=== PATIENT | female | born 1970 | race Caucasian/White ===

== ENCOUNTER → 2017-02-20 | Outpatient (CLI) | payer OTHER, SELFPAY | PROVIDERS: Visit Provider Nurse Practitioner Family | DX: R53.83 Other fatigue (principal); E55.9 Vitamin D deficiency, unspecified; Z79.899 Other long term (current) drug therapy | CPT/HCPCS: 80053; 80061; 82306; 83036; 84439; 84443; 85025 ==

== ENCOUNTER → 2017-05-12 02:00 | Outpatient (CLI) | payer OTHER, SELFPAY | PROVIDERS: PCP Nurse Practitioner Family; Visit Provider Nurse Practitioner Family | DX: G47.33 Obstructive sleep apnea (adult) (pediatric) (principal) | CPT/HCPCS: 95806 ==

== ENCOUNTER → 2017-07-22 09:43 | Outpatient (REF) | payer OTHER, SELFPAY ==
[2017-07-22 18:11] LABS: Basophils % 0.4 % (0.1-2.0); Eosinophils # 0.4 K/mm3 (0.0-0.4); Eosinophils % 4.3 % (0.1-12.0); Hematocrit 47.3 % (37.0-47.0); Hemoglobin 14.1 g/dL (12.2-16.2); Lymphocytes # 2.4 K/mm3 (0.7-4.5); Lymphocytes % 27.3 K/mm3 (10-50); Mean Corpuscular HGB Conc 29.7 g/dL (31.8-35.4); Mean Corpuscular Hemoglobin 28.1 pg (27.0-31.2); Mean Corpuscular Volume 94.6 fl (81-99); Monocytes # 0.4 K/mm3 (0.1-1.0); Monocytes % 4.3 % (1.7-9.3); Neutrophils # 5.7 K/mm3 (1.8-7.8); Neutrophils % 63.7 % (37.0-80.0); Platelet Count 404 K/mm3 (142-424); Red Cell Distribution Width 12.8 % (11.5-17.5); White Blood Count 8.9 K/mm3 (4.8-10.8)
[2017-07-22 18:44] LABS: Alanine Aminotransferase 22 U/L (12-78); Albumin Level 4.1 gm/dL (3.4-5.0); Albumin/Globulin Ratio 1.2 (1.1-1.8); Alkaline Phosphatase 99 U/L (46-116); Anion Gap 13.5 mEq/L (5-15); Aspartate Amino Transferase 18 U/L (15-37); Bilirubin,Total 0.4 mg/dL (0.2-1.0); Blood Urea Nitrogen 15 mg/dL (7-18); Calcium 9.8 mg/dL (8.5-10.1); Carbon Dioxide 28 mmol/L (21.0-32.0); Chloride 101 mmol/L (98-107); Chol/HDL Ratio 3.4 (1-3.5); Cholesterol 185 mg/dL (140-200); Creatinine,Serum 0.68 mg/dL (0.55-1.02); Estimated Glomerular Filt Rate 93 ml/min (>60); Free T4 (Free Thyroxine) 0.82 ng/dl (0.76-1.46); GFR (African American) 112 ML/MIN (>60); Globulin 3.4 gm/dl (1.3-3.2); Glucose 86 mg/dL (74-106); HDL Cholesterol 54 mg/dL (29-89); LDL Cholesterol 110 mg/dL (0-130); Potassium 4.5 mmoL/L (3.5-5.1); Sodium 138 mmol/L (136-145); Thyroid Stimulating Hormone 4.19 uIU/ml (0.358-3.740); Total Protein,Serum 7.5 gm/dL (6.4-8.2); Triglycerides 107 mg/dL (30-200); VLDL Cholesterol 21 mg/dL (0-40)
[2017-07-22 18:56] LABS: Hemoglobin A1C 5.3 % (0.0-7.0)
[2017-07-24 21:14] LABS: Vitamin D 25 Hydroxy 29.5 ng/mL (30.0-100.0)
== END ==
LOC: LAB 09:43
PROVIDERS: Visit Provider Nurse Practitioner Family
DX: R53.83 Other fatigue (principal); E66.9 Obesity, unspecified
CPT/HCPCS: 80053; 80061; 82652; 83036; 84439; 84443; 85025

== ENCOUNTER → 2017-09-18 09:12 | Outpatient (REF) | payer OTHER, SELFPAY ==
[2017-09-18 20:42] LABS: Free T4 (Free Thyroxine) 0.74 ng/dl (0.76-1.46); Thyroid Stimulating Hormone 2.38 uIU/ml (0.358-3.740)
== END ==
LOC: LAB 09:12
PROVIDERS: Visit Provider Nurse Practitioner Family
DX: E07.9 Disorder of thyroid, unspecified (principal)
CPT/HCPCS: 84439; 84443

== ENCOUNTER → 2017-12-08 11:53 | Outpatient (CLI) | payer OTHER, SELFPAY ==
[2017-12-08 19:26] LABS: Blood Urea Nitrogen 12 mg/dL (7-18); Calcium 8.8 mg/dL (8.5-10.1); Carbon Dioxide 26 mmol/L (21.0-32.0); Chloride 100 mmol/L (98-107); Creatinine,Serum 0.78 mg/dL (0.55-1.02); Estimated Glomerular Filt Rate 79 ml/min (>60); GFR (African American) 96 ML/MIN (>60); Glucose 130 mg/dL (74-106); Sodium 137 mmol/L (136-145)
== END ==
PROVIDERS: PCP Emergency Medicine; Visit Provider Internal Medicine Cardiovascular Disease
DX: I10 Essential (primary) hypertension (principal)
CPT/HCPCS: 36415; 80048; 83880

== ENCOUNTER → 2017-12-10 06:09 | Outpatient (CLI) | payer OTHER, SELFPAY ==
--- NOTE | 2017-12-10 06:12 | NM_ITS ---
History and Indications: Hypertension, tobacco use, family history, shortness of breath and fatigue Procedure: Patient received a 0.4 mg of Lexiscan, resting heart rate was 67 bpm resting blood pressure 120/88, with Lexiscan maximum heart rate achieved was 112 bpm is less than 85% maximum predicted heart rate and a blood pressure of 125/70. With Lexiscan patient complained of shortness of breath. Electrocardiogram: Resting electrocardiogram showed sinus rhythm, with Lexiscan there is less than 1.[address] segment depression noted from the baseline EKG. The EKG portion of the Lexiscan Myoview is nondiagnostic. Cardiac stress and resting SPECT images: Cardiac stress and resting SPECT images were obtained using technetium 99 Myoview 30.3 mCi at stress and 9.5 mCi at rest. Gated SPECT further analysis of segmental wall motion and calculation of the ejection fraction also done. Cardiac stress and rest SPECT images show uniform myocardial activity without segmental perfusion abnormality, computer derived ejection fraction is over 65% with no segmental wall motion abnormality, right ventricle is normal size and contractility. Conclusion: 1. The EKG portion of the Lexiscan Myoview is nondiagnostic. 2. No scintigraphic evidence of reversible ischemia seen, computer derived ejection fraction is over 65% with no regional wall motion abnormality, right ventricle is normal size and contractility. 3. Normal Lexiscan Myoview study.
--- NOTE | 2017-12-10 06:12 | CA_ITS ---
PROCEDURE: 2-D M-mode and color Doppler study INDICATIONS FOR THE TEST: Chest pain COPD Heart Murmur Tobacco Smoking+ Palpitations Fatigue Syncope Edema+ Hypertension+Diabetes Mellitus Rheumatic Fever SOB LARSON+Obesity Hyperlipidemia Family History HD+ Additional History PATIENT INFORMATION HEIGHT: 61 WEIGHT:250 GENDER: Female B/P:130/89 2-D/M-MODE INTERPRETATION: 2-D MEASUREMENTS OBSERVED VALUES IN CMS Right Ventricular Dimension (RVDd) 2.3 Interventricular Septum (Thickness)(IVsd) 1.0 Left Ventricular Internal Dimensions(LVIDd) 4.3 Left Ventricular Posterior Wall (Thickness)(LVPWd) 0.8 Aortic Root 2.5 Aortic Cusp Separation 1.7 Left Atrial Dimensions (LAD) 3.9 2D 1. Left atrium is upper limit of the normal, left ventricle is normal size, there is no concentric left ventricular hypertrophy, visually estimated ejection fraction 55% with no regional wall motion abnormality. 2. The right atrium and the ventricular normal size and contractility. 3. The aortic, mitral and tricuspid valve are grossly normal. 4. The pulmonic valve is poorly visualized. 5. No significant pericardial effusion noted. DOPPLER INTERROGATION: Doppler interrogation of the aortic, mitral and tricuspid valvular presence of mild mitral and tricuspid regurgitation, tricuspid regurgitation jet velocity is inadequate for calculation of the right ventricular systolic pressure, diastolic parameters are within normal range. CONCLUSION: 1. Normal left ventricular size, preserved left ventricular systolic function, visually estimated ejection fraction 55% with no regional wall motion abnormality, diastolic parameters are within normal range. 2. Mild mitral and tricuspid regurgitation 3. No significant pericardial effusion noted.
--- NOTE | 2017-12-10 10:07 | HMH.ITSHM ---
LISONPRIL PANTOPRAZOLE LORATATDINE LEVOTHYROXINE SPIRONOLACTONE FLUTICASONE
== END ==
PROVIDERS: Family Provider Emergency Medicine; PCP Emergency Medicine; Visit Provider Internal Medicine Cardiovascular Disease
DX: I10 Essential (primary) hypertension (principal); E03.9 Hypothyroidism, unspecified; K21.9 Gastro-esophageal reflux disease without esophagitis; R60.9 Edema, unspecified; R06.09 Other forms of dyspnea; F17.200 Nicotine dependence, unspecified, uncomplicated; Z82.49 Family history of ischemic heart disease and other diseases of the circulatory system
CPT/HCPCS: 78452; 93017; 93306; A9502; J2785

== ENCOUNTER → 2017-12-16 20:08 | Outpatient (CLI) | payer OTHER, SELFPAY | PROVIDERS: PCP Emergency Medicine; Visit Provider Internal Medicine Cardiovascular Disease | DX: G47.33 Obstructive sleep apnea (adult) (pediatric) (principal); G47.9 Sleep disorder, unspecified; R06.83 Snoring; R40.0 Somnolence | CPT/HCPCS: 95810 ==

== ENCOUNTER → 2018-02-17 13:04 | Outpatient (CLI) | payer OTHER, SELFPAY ==
--- NOTE | 2018-02-17 13:07 | US_ITS ---
US soft tissue head and neck Ordering Physician: Kristie Christensen Patient Age: 47 years: Female HISTORY: ITS.REASON: nodule right side of neck Patient reports feels palpable area at the right lower neck. Has been there for 2 months. TECHNIQUE: Ultrasound survey of the neck performed. Including bilateral salivary gland COMPARISON :No relevant studies FINDINGS . Scanning the palpable area does reveal a few lymph nodes in this area. With the largest node measures up to nearly 1 cm length x 0.6 cm AP. It has a normal fatty hilum. The cortex measures nearly 2 mm thickness.. This is labeled node # 1. Lymph node # 2..Measures up to 7 mm length times nearly 5 mm AP. On the final image there seems to be adequate fatty hilum. Cortex is slightly thicker here still normal at less than 2 mm.. Salivary glands are also surveyed and measured. & appear normal bilaterally: RIGHT submandibular gland measures 3.9 cm in length X 1.7 cm homogeneous. Similar size LEFT submandibular gland, measures 3.2 cm in length as 1.5 cm AP. The parotid glands also surveyed and reflect symmetric with no mass/nodule evident. Left parotid measures up to 4.7 cm length. Right parotid 4.4 cm length seem in length.. IMPRESSION: 1. Scanning region of palpable area right neck reveals 2 lymph nodes... Largest measuring nearly 1 cm length & other 0.7 cm length. These both overall appear to be benign lymph nodes.. If the palpable area should persist or progress follow-up CT neck with contrast be warranted. (Especially the patient has risk factors for neck lesion or neoplasm.) 2. Survey of parotid salivary glands unremarkable. WNL .
== END ==
PROVIDERS: PCP Emergency Medicine; Visit Provider Nurse Practitioner Family
DX: R59.9 Enlarged lymph nodes, unspecified (principal)
CPT/HCPCS: 76536

== ENCOUNTER → 2018-03-10 14:46 | Outpatient (CLI) | payer OTHER, SELFPAY ==
--- NOTE | 2018-03-10 14:49 | XR_ITS ---
EXAM: XR lumbar spine min 4V HISTORY: ITS.REASON: pain ORDERING PHYSICIAN: Kristie Christensen PATIENT AGE: 47 years COMPARISON: None FINDINGS: There has been prior posterior fusion at L4-L5 with interpedicular screws present in a disc spacer. There is mild anterolisthesis of L4 on L5 of 4 mm. No fracture or dislocation. No lytic or blastic change. The disc spaces are well-preserved. Unremarkable as joints. IMPRESSION: Postsurgical changes at L4-5 with minimal anterolisthesis of L4 otherwise negative lumbar spine
== END ==
PROVIDERS: PCP Nurse Practitioner Family; Visit Provider Nurse Practitioner Family
DX: M54.5 Low back pain (principal)
CPT/HCPCS: 72110

== ENCOUNTER → 2018-03-24 10:40 | Outpatient (POV) | payer OTHER, SELFPAY ==
[2018-03-24 10:51] VITALS: BP 128/71; PULSE 68; RESP 18; O2SAT 99
--- NOTE | 2018-03-24 11:38 | HMH.PMCON ---
Assessment and Plan (1) Degenerative disc disease Current visit: Yes Status: Chronic Category: Medical (2) Post laminectomy syndrome Current visit: Yes Status: Chronic Category: Medical Code(s): M96.1 - Postlaminectomy syndrome, not elsewhere classified - Assessment and plan all Dx Assessment and Plan for all problems:: We will schedule her for a psychological evaluation to determine if she is an intrathecal pain pump candidate. I do believe that given her age pain pump would be more beneficial in decreasing the likelihood of systemic dysfunction with oral medications. Patient is not currently on any oral narcotic medications. She does not have any anticoagulation issues. Patient is not on any anticoagulation therapy. Patient's tried and failed injections, physical therapy, multiple epidural injections, multiple facet joint injections and rhizotomies. Patient has been on anti-inflammatories for several years with no success. We will set her up for intrathecal pain pump trial. Dr. Mercado has reviewed this note and agrees with this plan of care. This note was dictated using voice recognition software and may contain errors or omissions HPI - Data of Consult Consult date: 03/24/18 Requesting Physician: Leida Pineda APRN Primary Care Provider: Erickson Chandra MD - Consult Narrative Reason for consult: back pain History of present illness: Ms. Roe is a 48 year old female who presents today for consultation in regards to her low back pain. Patient had surgery on her low back in 2014. Patient has had no relief. Patient has tried and failed epidural injections, facet joint injections, rhizotomies of the facet joints. Patient is constant pain. She rates her pain a 4 out of 10 all she is sitting. She is tried and failed physical therapy 3 times. Patient has tried and failed anti-inflammatories. She states that bending and laying flat increases her pain while nothing really decreases it. She states that in her low back and does not radiate much into her legs. CC: Leida Pineda APRN [facility] History I have reviewed the patient's past medical history: Yes Medical History: Reports:: Asthma, Gastroesophageal Reflux Disease(GERD), Hypertension Have you ever received a pneumonia vaccine?: No Have you received a flu vaccine this season?: No Other Medical History: Reports: Hypothyroidism, Sinus Problems Laterality Cases: Bilateral: Other Other Surgeries: Yes: Appendectomy, Hysterectomy-Partial Amputation: No Fractures: No - *Social History Smoking Status: Current every day smoker Tobacco Type: cigarettes # Packs/Day (cigarettes): 1 Alcohol Intake: never Substance Use Type: denies use Occupational Status: unemployed Housing: apartment Household Members: spouse Travel in the last 8 weeks: None - Psychiatric History Expresses thoughts of harming self/others: None Suicide Plan Description: No Plan *Family Hx:: Asthma, Hypertension, Heart Attack Review of Systems - Review of Systems ROS General: no recent weight change, no fever, no sleep disturbances Respiratory: no cough, no shortness of air, no recurring pulmonary infections Cardiovascular/Peripheral Vascular: No chest pain, No palpitations, no edema, no shortness of breath. Gastrointestinal: no incontinence, normal bowel movements reported Genitourinary: no incontinence Musculoskeletal: Back pain Psychiatric: normal mood/ affect Neurological: [denies weakness in extremities], [denies balance issues] Meds Home Medications Medication Instructions Recorded Confirmed Type albuterol sulfate 2 mg tablet 2 mg PO BID tab 07/22/17 03/10/18 History budesonide-formoterol HFA 160 2 puff INHALATION BID #6 g 11/17/17 03/10/18 Rx mcg-4.5 mcg/actuation aerosol inhaler spironolactone 25 mg tablet 25 mg PO DAILY #30 tab 11/27/17 03/10/18 Rx aspirin 81 mg chewable tablet 81 mg PO DAILY 12/15/17 03/10/18 History albuterol sulfate
--- NOTE | 2018-03-24 11:44 | P.CONS_ITS ---
Assessment and Plan (1) Degenerative disc disease Current visit: Yes Status: Chronic Category: Medical (2) Post laminectomy syndrome Current visit: Yes Status: Chronic Category: Medical Code(s): M96.1 - Postlaminectomy syndrome, not elsewhere classified - Assessment and plan all Dx Assessment and Plan for all problems:: We will schedule her for a psychological evaluation to determine if she is an intrathecal pain pump candidate. I do believe that given her age pain pump would be more beneficial in decreasing the likelihood of systemic dysfunction with oral medications. Patient is not currently on any oral narcotic medications. She does not have any anticoagulation issues. Patient is not on any anticoagulation therapy. Patient's tried and failed injections, physical therapy, multiple epidural injections, multiple facet joint injections and rhizotomies. Patient has been on anti-inflammatories for several years with no success. We will set her up for intrathecal pain pump trial. Dr. Mercado has reviewed this note and agrees with this plan of care. This note was dictated using voice recognition software and may contain errors or omissions HPI - Data of Consult Consult date: 03/24/18 Requesting Physician: Leida Pineda APRN Primary Care Provider: Erickson Chandra MD - Consult Narrative Reason for consult: back pain History of present illness: Ms. Roe is a 48 year old female who presents today for consultation in regards to her low back pain. Patient had surgery on her low back in 2014. Patient has had no relief. Patient has tried and failed epidural injections, facet joint injections, rhizotomies of the facet joints. Patient is constant pain. She rates her pain a 4 out of 10 all she is sitting. She is tried and failed physical therapy 3 times. Patient has tried and failed anti-inflammatories. She states that bending and laying flat increases her pain while nothing really decreases it. She states that in her low back and does not radiate much into her legs. CC: Leida Pineda APRN [facility] History I have reviewed the patient's past medical history: Yes Medical History: Reports:: Asthma, Gastroesophageal Reflux Disease(GERD), Hypertension Have you ever received a pneumonia vaccine?: No Have you received a flu vaccine this season?: No Other Medical History: Reports: Hypothyroidism, Sinus Problems Laterality Cases: Bilateral: Other Other Surgeries: Yes: Appendectomy, Hysterectomy-Partial Amputation: No Fractures: No - *Social History Smoking Status: Current every day smoker Tobacco Type: cigarettes # Packs/Day (cigarettes): 1 Alcohol Intake: never Substance Use Type: denies use Occupational Status: unemployed Housing: apartment Household Members: spouse Travel in the last 8 weeks: None - Psychiatric History Expresses thoughts of harming self/others: None Suicide Plan Description: No Plan *Family Hx:: Asthma, Hypertension, Heart Attack Review of Systems - Review of Systems ROS General: no recent weight change, no fever, no sleep disturbances Respiratory: no cough, no shortness of air, no recurring pulmonary infections Cardiovascular/Peripheral Vascular: No chest pain, No palpitations, no edema, no shortness of breath. Gastrointestinal: no incontinence, normal bowel movements reported Genitourinary: no incontinence Musculoskeletal: Back pain Psychiatric: normal mood/ affect Neurological: [denies weakness in extremities], [denies balance issues] Meds
== END ==
PROVIDERS: PCP Emergency Medicine; Visit Provider Clinical Nurse Specialist Family Health
DX: M96.1 Postlaminectomy syndrome, not elsewhere classified (principal); M51.36 Other intervertebral disc degeneration, lumbar region
CPT/HCPCS: 99203

== ENCOUNTER → 2018-03-30 14:51 | Outpatient (CLI) | payer OTHER, SELFPAY ==
--- NOTE | 2018-03-30 14:58 | XR_ITS ---
EXAM: XR lumbar spine 6V w bending HISTORY: Low back pain, spondylolisthesis, prior surgery ITS.REASON: pain ORDERING PHYSICIAN: Erickson Chandra MD PATIENT AGE: 48 years COMPARISON: 03/10/2018 FINDINGS: Interpedicular screws are present at L4 and L5 with a disc spacer device at that level. There is mild anterolisthesis of L4 of 3 to 4 mm. This does not significant change in flexion or extension. No fracture or dislocation. No lytic or blastic change. There is a mildly prominent zone of lucency around the interpedicular screws on the left at L4 and L5. The zone is approximately 3 mm as better demonstrated on today's study due to different positioning. If the patient has older exams at another institution would recommend they be obtained for comparison to determine if this zone of lucency is a chronic or developed finding. There are no older exams at this institution except for 03/10/2018. IMPRESSION: 1. Mild spondylolisthesis of L4 on L5 with postsurgical changes at that level. This does significantly not change in flexion or extension 2. There is a zone of lucency around the screws on the left at L4 and L5. This may be postsurgical in nature. Consider correlation with older studies to determine if this has developed in the interval. Screw loosening or infection is an additional consideration
== END ==
PROVIDERS: PCP Emergency Medicine; Visit Provider Emergency Medicine
DX: M54.5 Low back pain (principal)
CPT/HCPCS: 72114

== ENCOUNTER → 2018-04-09 14:23 | Outpatient (CLI) | payer OTHER, SELFPAY ==
--- NOTE | 2018-04-09 14:24 | MR_ITS ---
MR lumbar spine wo con, MR 3-d myelogram/MRCP HISTORY: PT states low back pain X Years. Bilateral Thigh pain. ITS.REASON: back pain ORDERING PHYSICIAN: Kristie Christensen PATIENT AGE: 48 years Comparison: X-RAY 03/30/18. TECHNIQUE: Standard multiplanar multiecho sequences are performed without contrast. 3-D MIP and myelographic images are also rendered and reviewed FINDINGS: The spinal cord ends at the L1 level. There are no previous MRIs available for comparison. T11-T12, T12-L1, L1-L2, and L2-L3 have an unremarkable appearance. L3-L4: Mild facet and ligamentum flavum hypertrophy. L4-L5: There has been prior fusion at L4-L5 with interpedicular screws and a moderate degree of artifact present at both levels. There is a disc spacer device at L4-L5. There is minimal anterolisthesis of L4 of approximately 4 mm. Facet and ligamentum flavum hypertrophy present at L4-L5 with bilateral lateral recess narrowing.. Postsurgical changes posteriorly. L5-S1: Concentric bulging disc with mild facet and ligamentum flavum hypertrophy. There is mild narrowing of the canal at this level at 11 mm. No extruded herniated.. IMPRESSION: 1. L4-L5: There has been prior fusion at L4-L5 with interpedicular screws and a moderate degree of artifact present at both levels. There is a disc spacer device at L4-L5. There is minimal anterolisthesis of L4 of approximately 4 mm. Facet and ligamentum flavum hypertrophy present at L4-L5 with bilateral lateral recess narrowing.. Postsurgical changes posteriorly. 2. L5-S1: Concentric bulging disc with mild facet and ligamentum flavum hypertrophy. There is mild narrowing of the canal at this level at 11 mm. 3. No extruded herniated disc evident
== END ==
PROVIDERS: PCP Nurse Practitioner Family; Visit Provider Nurse Practitioner Family
DX: R93.89 Abnormal findings on diagnostic imaging of other specified body structures (principal); Z98.890 Other specified postprocedural states
CPT/HCPCS: 72148; 76376

== ENCOUNTER → 2018-04-21 11:02 | Outpatient (POV) | payer OTHER, SELFPAY ==
[2018-04-21 11:17] VITALS: BP 123/69; PULSE 72; RESP 18; O2SAT 98; BMI 47.2
--- NOTE | 2018-04-21 11:35 | P.CONS_ITS ---
[facility] Pain Management SOAP Note Subjective:: Patient is a pleasant 48-year-old white female who presents today for follow-up. Patient had back surgery back in 2015. She has had no relief of her pain since then. She is tried and failed epidural injections, facet joint injections, rhizotomies of the facet joints. She states that her pain is always a 5 out of 10. She has failed physical therapy 3 separate times. She is tried and failed anti-inflammatories. She states that bending and laying flat increase her pain while nothing truly decreases it. She is currently not on any any narcotic medications. ROS General: no recent weight change, no fever, no sleep disturbances Respiratory: no cough, no shortness of air, no recurring pulmonary infections Cardiovascular/Peripheral Vascular: No chest pain, No palpitations, no edema, no shortness of breath. Gastrointestinal: no incontinence, normal bowel movements reported Genitourinary: no incontinence Musculoskeletal: Back pain, leg pain Psychiatric: normal mood/ affect Neurological: [denies weakness in extremities], [denies balance issues] Objective:: Physical Exam General: Alert and oriented x3, no acute distress, pleasant and cooperative, [on room air] Lungs: Resps E/U, Symmetrical chest expansion, Eyes: PERRL Musculoskeletal: Flexion and extension of lumbar spine somewhat guarded secondary to pain, deep tendon reflexes normal, strength in upper and lower extremities [5/5], [abnormal gait noted] Neurological: 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 Patient has had an appropriate psychological evaluation. I believe given her age a pain pump would be more beneficial in decreasing the likelihood of systemic dysfunction with oral medications. She does not have any anticoagulation issues and is not on any anticoagulation therapy. She is tried and failed injections physical therapy epidural injections, facet injections and rhizotomies. She is been on anti-inflammatories for several years with no success. I will follow-up with her after her trial reassess her symptoms at that time. Dr. Mercado has reviewed this note and agrees with this plan of care. This note was dictated using voice recognition software and may contain errors or omissions
== END ==
PROVIDERS: PCP Emergency Medicine; Visit Provider Clinical Nurse Specialist Family Health
DX: M96.1 Postlaminectomy syndrome, not elsewhere classified (principal)
CPT/HCPCS: 99213

== ENCOUNTER → 2018-05-21 13:40 | Outpatient (POV) | payer OTHER, SELFPAY | PROVIDERS: Visit Provider Neurological Surgery | DX: Z00.00 Encounter for general adult medical examination without abnormal findings (principal) ==

== ENCOUNTER → 2018-07-28 14:19 | Outpatient (POV) | payer OTHER, SELFPAY ==
[2018-07-28 14:42] VITALS: BP 144/78; PULSE 88; RESP 18; O2SAT 97; BMI 47.9
--- NOTE | 2018-07-28 16:11 | P.CONS_ITS ---
[facility] Pain Management SOAP Note Subjective:: Patient is a pleasant 48-year-old white female who presents today for follow-up after intrathecal pain pump implant. Patient states her pain is good rating it a 1 out of 10 today. Patient does have a rash however she is allergic to sulfa and has been taking Bactrim. She will stop the Bactrim today. Patient is currently on a morphine infusion of 0.25 mg. Site is clean dry and intact. Incision intact. She is in place. ROS General: no recent weight change, no fever, no sleep disturbances Respiratory: no cough, no shortness of air, no recurring pulmonary infections Cardiovascular/Peripheral Vascular: No chest pain, No palpitations, no edema, no shortness of breath. Gastrointestinal: no incontinence, normal bowel movements reported Genitourinary: no incontinence Musculoskeletal: Back pain, leg pain Psychiatric: normal mood/ affect Neurological: [denies weakness in extremities], [denies balance issues] Objective:: Physical Exam General: Alert and oriented x3, no acute distress, pleasant and cooperative, [on room air] Lungs: Resps E/U, Symmetrical chest expansion, [CTA bilateral] Eyes: PERRL Musculoskeletal: Flexion and extension of lumbar spine somewhat guarded secondary to pain, deep tendon reflexes normal, strength in upper and lower ex tremities [5/5], [abnormal gait noted] Neurological: speech clear, 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 We will also remove her stitches at that time she is been instructed to call the office if she has any issues prior to her next appointment. Dr. Mercado has reviewed this note and agrees with this plan of care. This note was dictated using voice recognition software and may contain errors or omissions
== END ==
PROVIDERS: PCP Emergency Medicine; Visit Provider Clinical Nurse Specialist Family Health
DX: M51.16 Intervertebral disc disorders with radiculopathy, lumbar region (principal)
CPT/HCPCS: 99212

== ENCOUNTER → 2018-08-11 13:01 | Outpatient (POV) | payer OTHER, SELFPAY ==
--- NOTE | 2018-08-11 13:55 | HMH.PAINSOAP ---
[facility] Pain Management SOAP Note Subjective:: Patient is a pleasant 48-year-old white female who presents today for follow-up after intrathecal pain pump implant. Patient still has sutures in place. She does have some redness around the sutures. There is some noted fibrous tissue in the incisional area. Patient is a smoker. I believe it would be beneficial to keep her sutures in a additional week. We will clean the area and put Steri-Strips in place. She rates her pain a 2 out of 10 overall doing well she does have bilateral bursitis in her greater trochanteric bursa's. [facility] #[id number] reviewed and appropriate. ROS General: no recent weight change, no fever, no sleep disturbances Respiratory: no cough, no shortness of air, no recurring pulmonary infections Cardiovascular/Peripheral Vascular: No chest pain, No palpitations, no edema, no shortness of breath. Gastrointestinal: no incontinence, normal bowel movements reported Genitourinary: no incontinence Musculoskeletal: Back pain, leg pain Psychiatric: normal mood/ affect, Neurological: [denies weakness in extremities], [denies balance issues] Objective:: Physical Exam General: Alert and oriented x3, no acute distress, pleasant and cooperative, [on room air] Lungs: Resps E/U, Symmetrical chest expansion, Eyes: PERRL Musculoskeletal: Flexion and extension of lumbar spine somewhat guarded secondary to pain, deep tendon reflexes normal, strength in upper and lower extremities [5/5], [abnormal gait noted] 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 She is been instructed to call the office if she has any issues prior to her next appointment. Dr. Mercado has reviewed this note and agrees with this plan of care. This note was dictated using voice recognition software and may contain errors or omissions
--- NOTE | 2018-08-11 13:58 | P.CONS_ITS ---
[facility] Pain Management SOAP Note Subjective:: Patient is a pleasant 48-year-old white female who presents today for follow-up after intrathecal pain pump implant. Patient still has sutures in place. She does have some redness around the sutures. There is some noted fibrous tissue in the incisional area. Patient is a smoker. I believe it would be beneficial to keep her sutures in a additional week. We will clean the area and put Steri- Strips in place. She rates her pain a 2 out of 10 overall doing well she does have bilateral bursitis in her greater trochanteric bursa's. [facility] #[id number] reviewed and appropriate. ROS General: no recent weight change, no fever, no sleep disturbances Respiratory: no cough, no shortness of air, no recurring pulmonary infections Cardiovascular/Peripheral Vascular: No chest pain, No palpitations, no edema, no shortness of breath. Gastrointestinal: no incontinence, normal bowel movements reported Genitourinary: no incontinence Musculoskeletal: Back pain, leg pain Psychiatric: normal mood/ affect, Neurological: [denies weakness in extremities], [denies balance issues] Objective:: Physical Exam General: Alert and oriented x3, no acute distress, pleasant and cooperative, [on room air] Lungs: Resps E/U, Symmetrical chest expansion, Eyes: PERRL Musculoskeletal: Flexion and extension of lumbar spine somewhat guarded secondary to pain, deep tendon reflexes normal, strength in upper and lower extremities [5/5], [abnormal gait noted] Neurological: speech clear, manager room equal, no gross sensory deficits Assessment:: Degenerative disc disease lumbar spine with lumbar radiculopathy Plan:: We will see the patient back in 1 week to remove her stitches. She is been instructed to call the office if she has any issues prior to her next appointment. Dr. Mercado has reviewed this note and agrees with this plan of care. This note was dictated using voice recognition software and may contain errors or omissions
[2018-08-11 14:05] VITALS: BP 132/69; PULSE 66; RESP 18; O2SAT 99; BMI 47.9
== END ==
PROVIDERS: PCP Emergency Medicine; Visit Provider Clinical Nurse Specialist Family Health
DX: M51.16 Intervertebral disc disorders with radiculopathy, lumbar region (principal)
CPT/HCPCS: 99212

== ENCOUNTER → 2018-08-18 14:29 | Outpatient (POV) | payer OTHER, SELFPAY ==
[2018-08-18 15:10] VITALS: BP 145/75; PULSE 68; RESP 18; O2SAT 100; BMI 51.2
--- NOTE | 2018-08-18 15:42 | HMH.PAINSOAP ---
[facility] Pain Management SOAP Note Subjective:: Patient is a pleasant 48-year-old white female who presents today for intrathecal pain pump check. Patient doing well denies side effects. Patient is on a on .25 mg of morphine a day. She rates her pain a 4 out of 10 it is very manageable for her. Patient still has stitches in place. There are some areas of scabbing. We will keep her stitches on for 1 more week. ROS General: no recent weight change, no fever, no sleep disturbances Respiratory: no cough, no shortness of air, no recurring pulmonary infections Cardiovascular/Peripheral Vascular: No chest pain, No palpitations, no edema, no shortness of breath. Gastrointestinal: no incontinence, normal bowel movements reported Genitourinary: no incontinence Musculoskeletal: Back pain, leg pain Psychiatric: normal mood/ affect Neurological: [denies weakness in extremities], [denies balance issues] Objective:: Physical Exam General: Alert and oriented x3, no acute distress, pleasant and cooperative, [on room air] Lungs: Resps E/U, Symmetrical chest expansion, Eyes: PERRL Musculoskeletal: Flexion and extension of lumbar spine somewhat guarded secondary to pain, deep tendon reflexes normal, strength in upper and lower extremities [5/5], [abnormal gait noted] Neurological: speech clear, manager regulatory equal, no gross sensory deficits Assessment:: Degenerative disc disease lumbar spine with lumbar radiculopathy and post laminectomy syndrome Plan:: I will see the patient back in 1 week and will take her stitches out at that time. Patient is instructed to call the office if she has any issues prior to her next appointment. E Dr. Mercado has reviewed this note and agrees with this plan of care. This note was dictated using voice recognition software and may contain errors or omissions
[2018-08-20 18:56] LABS: H. pylori Breath Test Negative (Negative)
== END ==
LOC: SC.PAIN 14:31 → SC.PAINP 15:39
PROVIDERS: Nurse Practitioner Family; PCP Emergency Medicine; Visit Provider Clinical Nurse Specialist Family Health
DX: M51.16 Intervertebral disc disorders with radiculopathy, lumbar region (principal); M96.1 Postlaminectomy syndrome, not elsewhere classified; R10.9 Unspecified abdominal pain; R11.2 Nausea with vomiting, unspecified
CPT/HCPCS: 83013

== ENCOUNTER → 2018-08-24 08:13 | Outpatient (CLI) | payer OTHER, SELFPAY ==
--- NOTE | 2018-08-24 08:14 | US_ITS ---
US gallbladder HISTORY: ITS.REASON: pain ORDERING PHYSICIAN: Kristie Christensen APRN PATIENT AGE: 48 years Comparison: None FINDINGS: , Bile duct is normal measuring 2.6 mm. PANCREAS: The visualized portions of the pancreas and IVC appear normal. LIVER: No focal liver lesions demonstrated. Homogeneous echogenicity. No intrahepatic biliary ductal dilatation evident RIGHT KIDNEY: Unremarkable. Normal size and echogenicity. No hydronephrosis GALLBLADDER: Very small amount of gallbladder sludge is identified. There are no shadowing stones or pericholecystic fluid. IMPRESSION: Small amount of gallbladder sludge. No gallstones or acute inflammation.
== END ==
PROVIDERS: PCP Nurse Practitioner Family; Visit Provider Nurse Practitioner Family
DX: R10.11 Right upper quadrant pain (principal); R11.2 Nausea with vomiting, unspecified
CPT/HCPCS: 76705

== ENCOUNTER → 2018-09-01 10:09 | Outpatient (CLI) | payer OTHER, SELFPAY ==
--- NOTE | 2018-09-01 10:11 | NM_ITS ---
NM hepatobiliary w pharm HISTORY: Right upper quadrant pain ITS.REASON: gallbladder sludge ORDERING PHYSICIAN: Kristie Christensen APRN PATIENT AGE: 48 years COMPARISON: None DOSE: 7.55 MCI TC Choletec 2.5 MCG cck INJ into LT ANT FINDINGS: Homogeneous activity is present within the hepatic parenchyma. Activity is present in the gallbladder by 10 minutes. Activity is present in the small bowel by 30 minutes. The gallbladder ejection fraction is calculated to be 52% The patient reported mild pain and nausea with CCK infusion. IMPRESSION: Unremarkable hepatobiliary scan and gallbladder ejection fraction. No evidence of common or cystic duct obstruction with normal gallbladder ejection fraction
--- NOTE | 2018-09-01 11:13 | HMH.ITSHM ---
Current Home Medications as stated by this patient Marcy Roe or inside sales representative. []SYMBICORT BREO SPIRONOLACTONE TIZANIDINE PANTOPRAZOLE MECLIZINE LORATADINE LISINOPRIL LEVOTHYROXINE NASAL SPRAY ASA ALBUTEROL
== END ==
PROVIDERS: PCP Nurse Practitioner Family; Visit Provider Nurse Practitioner Family
DX: K82.8 Other specified diseases of gallbladder (principal); R10.9 Unspecified abdominal pain
CPT/HCPCS: 78227; A9537; J2805

== ENCOUNTER → 2018-10-05 12:56 | Outpatient (POV) | payer OTHER, SELFPAY ==
[2018-10-05 14:08] VITALS: BP 144/82; PULSE 61; RESP 18; O2SAT 99; BMI 49.1
--- NOTE | 2018-10-05 14:58 | HMH.PAINSOAP ---
[facility] Pain Management SOAP Note Subjective:: Patient is a pleasant 48-year-old white female who presents today for follow-up after bilateral bursa injections. Patient states overall doing well her pain is a 3 out of 10 she also the intrathecal pain pump. She denies any back pain and is doing well patient denies side effects or intrathecal therapy. Patient is going to go to [facility] and see if she needs another injection after walking around. ROS General: no recent weight change, no fever, no sleep disturbances Respiratory: no cough, no shortness of air, no recurring pulmonary infections Cardiovascular/Peripheral Vascular: No chest pain, No palpitations, no edema, no shortness of breath. Gastrointestinal: no incontinence, normal bowel movements reported Genitourinary: no incontinence Musculoskeletal: Hip pain Psychiatric: normal mood/ affect Neurological: [denies weakness in extremities], [denies balance issues] Objective:: Physical Exam General: Alert and oriented x3, no acute distress, pleasant and cooperative, [on room air] Lungs: Resps E/U, Symmetrical chest expansion, Eyes: PERRL Musculoskeletal: Flexion and extension of lumbar spine somewhat guarded secondary to pain, deep tendon reflexes normal, strength in upper and lower extremities [5/5], antalgic gait noted, extreme point tenderness over great trochanteric bursa bilaterally Neurological: speech clear, facility security officer equal, no gross sensory deficits Assessment:: Postlaminectomy syndrome, bursitis Plan:: Patient is in a let us know she needs a repeat bursa injection bilaterally. If she does not we will see her next intrathecal pain pump refill and reprogram. She is been instructed to call the office if she has any issues prior to her next appointment. Dr. Mercado has reviewed this note and agrees with this plan of care. This note was dictated using voice recognition software and may contain errors or omissions Pain Management Hx Components *Have you ever received a pneumonia vaccine?: Yes *Have you received a flu vaccine this season?: Yes - *Social History *Occupational Status:: other *Travel in the last 8 weeks: None
== END ==
PROVIDERS: PCP Emergency Medicine; Visit Provider Clinical Nurse Specialist Family Health
DX: M96.1 Postlaminectomy syndrome, not elsewhere classified (principal); M70.61 Trochanteric bursitis, right hip; M70.62 Trochanteric bursitis, left hip
CPT/HCPCS: 99212

== ENCOUNTER → 2018-10-26 13:46 | Outpatient (CLI) | payer OTHER, SELFPAY ==
--- NOTE | 2018-10-26 14:14 | XR_ITS ---
PROCEDURE: XR CHEST 2V CLINICAL HISTORY: shortness of breath COMPARISON: No exams were available for comparison FINDINGS: The cardiomediastinal silhouette and pulmonary vascularity are within normal limits. The lungs are clear without infiltrates, suspicious nodules, or pleural effusions. No acute bony abnormalities. IMPRESSION: No acute findings. Dictated by: Jose Morrow MD 10/26/2018 14:34 Signed by: <Electronically signed by Jose Morrow MD in [place]> 10/26/2018 14:34
[2018-10-26 14:20] LABS: Basophils % 0.1 % (0.1-2.0); Eosinophils # 0.2 K/mm3 (0.0-0.4); Eosinophils % 1.4 % (0.1-12.0); Hematocrit 43.5 % (37.0-47.0); Hemoglobin 13.9 g/dL (12.2-16.2); Lymphocytes # 2.3 K/mm3 (0.7-4.5); Mean Corpuscular Hemoglobin 29.6 pg (27.0-31.2); Mean Corpuscular Volume 92.4 fl (81-99); Mean Platelet Volume 6.3 fl (7.4-10.4); Monocytes # 0.7 K/mm3 (0.1-1.0); Monocytes % 6.6 % (1.7-9.3); Neutrophils # 7.7 K/mm3 (1.8-7.8); Neutrophils % 70.9 % (37.0-80.0); Platelet Count 405 K/mm3 (142-424); Red Blood Count 4.71 M/mm3 (4.20-5.40); Red Cell Distribution Width 13.6 % (11.5-17.5); White Blood Count 10.8 K/mm3 (4.8-10.8)
[2018-10-26 14:58] LABS: Erythrocyte Sedimentation Rate 18 mm/hr (0-20)
[2018-10-26 15:30] LABS: Alanine Aminotransferase 20 U/L (12-78); Albumin Level 3.8 gm/dL (3.4-5.0); Albumin/Globulin Ratio 0.9 (1.1-1.8); Alkaline Phosphatase 120 U/L (46-116); Anion Gap 14.1 mEq/L (5-15); Aspartate Amino Transferase 10 U/L (15-37); Bilirubin,Total 0.4 mg/dL (0.2-1.0); Blood Urea Nitrogen 10 mg/dL (7-18); C-Reactive Protein 4.5 mg/dL (0.0-0.9); Calcium 9.5 mg/dL (8.5-10.1); Carbon Dioxide 29 mmol/L (21.0-32.0); Chloride 99 mmol/L (98-107); Chol/HDL Ratio 4.5 (1-3.5); Cholesterol 190 mg/dL (140-200); Creatinine,Serum 0.91 mg/dL (0.55-1.02); Estimated Glomerular Filt Rate 66 ml/min (>60); Free T4 (Free Thyroxine) 1.12 ng/dl (0.76-1.46); GFR (African American) 80 ML/MIN (>60); Globulin 4.2 gm/dl (1.3-3.2); Glucose 111 mg/dL (74-106); HDL Cholesterol 42 mg/dL (29-89); LDL Cholesterol 116 mg/dL (0-130); Potassium 4.1 mmoL/L (3.5-5.1); Sodium 138 mmol/L (136-145); Thyroid Stimulating Hormone 1.91 uIU/ml (0.358-3.740); Triglycerides 159 mg/dL (30-200); VLDL Cholesterol 32 mg/dL (0-40)
[2018-10-28 09:47] LABS: RA Latex Turbid. <10.0 IU/mL (0.0-13.9); Vitamin D 25 Hydroxy 24.7 ng/mL (30.0-100.0)
[2018-10-28 14:10] LABS: Anti-Centromere B Antibodies <0.2 AI (0.0-0.9); Anti-Jo-1 <0.2 AI (0.0-0.9); Anti-Smith Antibody <0.2 AI (0.0-0.9); Antichromatin Antibodies <0.2 AI (0.0-0.9); Antiscleroderma-70 Antibodies <0.2 AI (0.0-0.9); RNP Antibodies <0.2 AI (0.0-0.9); Sjogren's Anti-SS-A <0.2 AI (0.0-0.9); Sjogren's Anti-SS-B <0.2 AI (0.0-0.9)
[2018-10-28 20:19] LABS: Anti-DNA (DS) Ab Qn <1 IU/mL (0-9)
[2018-10-29 01:07] LABS: PTT-LA 39.5 sec (0.0-51.9); dRVVT 40.8 sec (0.0-47.0)
[2018-10-29 06:51] LABS: Anti-Cyclic Citrullinated Pept 3 units (0-19); Lupus Reflex Interpretation Comment: (.)
== END ==
PROVIDERS: Visit Provider Nurse Practitioner Family
DX: A41.9 Sepsis, unspecified organism (principal); R53.83 Other fatigue; R06.02 Shortness of breath
CPT/HCPCS: 36415; 71046; 80053; 80061; 82652; 84439; 84443; 85025; 85613; 85651; 86140; 86200; 86225; 86235; 86431

== ENCOUNTER 2019-02-04 14:00 | Outpatient (RCR) | payer OTHER, SELFPAY ==
--- NOTE | 2018-11-16 15:23 | HMH.PTOPWND ---
Rehab Outpt Wound Evaluation Rehab OP Wound Evaluation Start: 11/16/18 15:00 Freq: Status: Active Protocol: Document 11/16/18 15:16 LEW (Rec: 11/16/18 15:23 [email or web address] [id number]) Electronically Signed By Jaya Sherman, PT 11/16/18 15:16 Subjective/History History History Pt is 48 yowf who presents with c/o B LE edema for several years with multiple bouts of cellulitis and a bout of sepsis about a month ago. She reports no numbness in the LE, but some pain that increases with edema. She has and implanted intrathecal pain pump which has helped decrease her chronic LBP. She has hx of APPY, partial hysterectomy, asthma requiring chronic steroid medications, hypothyroid, HTN, and obesity. Subjective Subjective Currently no c/o pain, 6/10 at worst. Lymphedema Eval Classification of Lymphedema Secondary Lymphedema Yes Stemmer's sign Stemmer's Sign no Stage of Lymphedema Lymphedema stages Stage I (Pitting edema, reduces w/ elevation, no fibrosis) Skin Changes Dry Skin Yes Skin Folds Yes Redness Yes Discoloration of Skin Yes Other Changes Yes Pain Scale Pain Scale (0-10) 6 Affected Extremities Areas Affected by Lymphedema/Edema Right Lower Extremity,Left Lower Extremity Manual Lymphatic Drainage Treatment Area MLD Treatment Area Right Lower Extremity,Left Lower Extremity Wound Problems/Impairments Impairments Problems/Impairmments Palpation Tenderness,Impaired Endurance,Impaired Walking, Impaired Recreational Activities,Increased Edema, Lymphedema Present,Subjective C/O Pain,Impaired Self Care/ Self Management Prognosis Rehab Potential Fair Clinical Impression Consistent with Diagnosis Yes Short Term Goals Number of Weeks 4 Decreased Palpation Tenderness Yes: to min Decrease Subjective C/O Pain Yes: 4/10 Patient to Understand Lymphedema Yes Treatment and Exercises Decrease Girth Measurments by (cm)
--- NOTE | 2018-12-24 09:34 | HMH.RHREAS ---
Rehab Reassessment Rehab OP Re-assessment Start: 12/24/18 09:26 Freq: Status: Active Protocol: Document 12/24/18 09:27 LEW (Rec: 12/24/18 09:34 LEW [id number]) Electronically Signed By Jaya Sherman, PT 12/24/18 09:27 Rehab Re-assessment Subjective Subjective Pt reports feeling less soreness and heaviness in B legs. Objective Objective Notes Less pitting edema noted, some fibrotic tissue remains. Right foot edema > left foot. Assessment Progress Assessment Progressing as Expected Assessment Notes Pt with significant decrease in B LE pitting edema and palpation tenderness. Patient goals met ST,2,3,4 Goals Not Met LT,2,3,4,5,6 Revised Goals none Plan Plan Continue per initial POC. Frequency of Therapy 2 x/wk Duration of therapy 8 wks Time and Billing Re-Eval Time 15 Re-Eval Billing Units 1 PHYSICIAN CERTIFICATION: I certify the specified therapy services for Marcy Roe are required, authorized, and reviewed every 30 days.
--- NOTE | 2019-01-19 10:18 | HMH.RHREAS ---
Rehab Reassessment Rehab OP Re-assessment Start: 12/24/18 09:26 Freq: Status: Active Protocol: Document 01/19/19 10:16 LEW (Rec: 01/19/19 10:18 LEW [id number]) Electronically Signed By Jaya Sherman, PT 01/19/19 10:16 Rehab Re-assessment Subjective Subjective Pt reports feeling better with less heaviness in B LE. Objective Objective Notes No pitting edema noted at this time, Mild fibrotic edema remains in B LE. Minimal tenderness to palpation noted in B gaitor area. Assessment Progress Assessment Progressing as Expected Assessment Notes Improving with ADL's and tolerating all HEP and compression well. Patient goals met ST,2,3,4 Goals Not Met LT,2,3,4,5,6 Revised Goals none Plan Plan Continue per initial POC. Frequency of Therapy 2 x/wk Duration of therapy 8 wks Time and Billing Re-Eval Time 15 Re-Eval Billing Units 1 PHYSICIAN CERTIFICATION: I certify the specified therapy services for Marcy Roe are required, authorized, and reviewed every 30 days.
== END 2019-02-04 14:05 | disposition home or self-care (01) ==
LOC: PT 14:00
PROVIDERS: Visit Provider Nurse Practitioner Family
DX: I89.0 Lymphedema, not elsewhere classified (principal)
CPT/HCPCS: 97140; 97162; 97164; 97760

== ENCOUNTER → 2019-03-30 11:01 | Outpatient (POV) | payer MEDICAID, SELFPAY ==
[2019-03-30 12:28] VITALS: BP 136/73; PULSE 83; RESP 18; O2SAT 99; BMI 51.7
--- NOTE | 2019-03-30 12:32 | P.PCN_ITS ---
- Procedure Date: 03/30/19 Time: 12:32 Anesthesiologist:: Leida Pineda APRN Complications:: None Pre-procedure Diagnosis:: Degenerative disc disease lumbar spine with lumbar postlaminectomy syndrome Post-procedure Diagnosis:: Same Indications for Procedure:: Patient is a pleasant 49-year-old white female who presents today for intrathecal pain pump adjustment. Patient recently tore her meniscus. She is having increased low back pain however due to the potential of her having surgery she is not a candidate for injections at this time. Patient is currently on intrathecal infusion of 0.54 mg/day going at 0.045 mg of morphine every 2 hours we will increase her today. She denies side effects. Physical Exam General: Alert and oriented x3, no acute distress, pleasant and cooperative, [on room air] Lungs: Resps E/U, Symmetrical chest expansion, Eyes: PERRL Musculoskeletal: Flexion and extension of lumbar spine somewhat guarded secondary to pain, deep tendon reflexes normal, strength in upper and lower extremities [5/5], [abnormal gait noted] Neurological: speech clear, transportation maintenance supervisor equal, no gross sensory deficits Procedure Details:: Informed consent was obtained and the risk and benefits of the procedure were explained to the patient. The patient was taken to the procedure room where noninvasive monitoring was placed including noninvasive blood pressure cuff and pulse oximeter. Patient's pump was interrogated and reprogrammed. The infusion rate was increased to 0.06 mg every 2 hours for total daily dose of 0.72 mg of morphine a day. The patient tolerated the procedure well. Plan and Disposition:: Follow-up with the patient at her next intrathecal pain pump refill and reprogram she is been encouraged to call our office if she has any issues prior to her next appointment. Dr. Mercado has reviewed this note and agrees with this plan of care. This note was dictated using voice recognition software and may contain errors or omissions
== END ==
PROVIDERS: PCP Emergency Medicine; Visit Provider Clinical Nurse Specialist Family Health
DX: M51.36 Other intervertebral disc degeneration, lumbar region (principal); M96.1 Postlaminectomy syndrome, not elsewhere classified
CPT/HCPCS: 62368

== ENCOUNTER 2019-06-29 11:27 | Day surgery (SDC) | payer MEDICAID, SELFPAY ==
[2019-06-29 11:45] VITALS: BP 155/88; PULSE 92; RESP 20; O2SAT 99
[2019-06-29 12:00] VITALS: BP 150/97; PULSE 90; RESP 20; O2SAT 99
[2019-06-29 12:03] VITALS: BP 150/99; PULSE 90; RESP 20; TEMP 36.6; O2SAT 99; BMI 49.1
[2019-06-29 12:09] VITALS: BP 149/98; PULSE 90; RESP 20; O2SAT 99
--- NOTE | 2019-07-06 15:41 | P.PCN_ITS ---
- Procedure Date: 06/29/19 Time: 11:45 Anesthesiologist:: Leida Pineda APRN Complications:: None Pre-procedure Diagnosis:: Degenerative disc disease lumbar spine with lumbar radiculopathy and postlaminectomy syndrome Post-procedure Diagnosis:: Same Indications for Procedure:: Patient is a pleasant 49-year-old white female who presents today for intrathecal pain pump refill and reprogram. Patient overall doing well she would like a slight increase she has recently fallen. She rates her pain today 7 out of 10 she denies side effects or medication Todd reviewed and appropriat e urine drug screens have been appropriate. While the patient was in the hospital due to her injury after falling she did receive a short-term opioid prescription. Physical Exam General: Alert and oriented x3, no acute distress, pleasant and cooperative, [on room air] Lungs: Resps E/U, Symmetrical chest expansion, Eyes: PERRL Musculoskeletal: Flexion and extension of lumbar spine somewhat guarded secondary to pain, deep tendon reflexes normal, strength in upper and lower extremities [5/5], [abnormal gait noted] Neurological: speech clear, assisted living nursing director equal, no gross sensory deficits Procedure Details:: Informed consent was obtained and the risk and benefits of the procedure were explained to the patient. The patient was taken to the procedure room where no ninvasive monitoring was placed including noninvasive blood pressure cuff and pulse oximeter. Patient's pump was interrogated. The area over the pump was cleansed with chlorhexidine as a cleansing solution. In sterile fashion the pump was accessed with a 22-gauge needle. The expected amount was removed of the pump solution and discarded appropriately. The pump was then refilled with 20 mL's of morphine 5 mg/mL. The needle was withdrawn and a bandage was placed over the puncture site. The infusion rate was reprogrammed to increase to 0.05 mg every 2 hours for total daily dose of 0.84 mg of morphine a day. The patient tolerated the procedure well. Plan and Disposition:: I will see the patient back at her next physical pain pump refill. She has been instructed to call the office if she has any issues prior to her next appointment. Dr. Mercado has reviewed this note and agrees with this plan of care. This note was dictated using voice recognition software and may contain errors or omissions
== END 2019-06-29 12:00 | disposition home or self-care (01) ==
LOC: SC.PAINP 11:27
PROVIDERS: PCP Emergency Medicine; Visit Provider Clinical Nurse Specialist Family Health
DX: M51.16 Intervertebral disc disorders with radiculopathy, lumbar region (principal); M96.1 Postlaminectomy syndrome, not elsewhere classified
CPT/HCPCS: 62370

== ENCOUNTER 2019-09-27 15:00 | Day surgery (SDC) | payer MEDICAID, SELFPAY ==
[2019-09-27 15:15] VITALS: BP 140/68; PULSE 66; RESP 18; TEMP 36.1; O2SAT 100; BMI 50.1
--- NOTE | 2019-09-27 15:25 | HMH.PMPROC ---
- Procedure Date: 09/27/19 Time: 15:25 Anesthesiologist:: Taylor Adkins APRN Complications:: None Pre-procedure Diagnosis:: Degenerative disc disease lumbar spine with lumbar radiculopathy symptoms, postlaminectomy syndrome lumbar spine Post-procedure Diagnosis:: Same Indications for Procedure:: Patient is a 49-year-old white female who presents today for intrathecal pain pump refill and reprogram. She has been treated for low back pain with lumbar radiculopathy symptoms. Patient rates her pain a 6 out of 10 today. She is currently on periodic flow at or faint at 0.05 mg every 2 hours. She denies any side effects to her medication. Patient's urine drug screens and Todd's have been reviewed and are appropriate. Physical exam General: Alert and oriented x3, no acute distress, pleasant and cooperative, [on room air] Lungs: Respirations even and unlabored, symmetrical chest expansion Eyes: PERRL Musculoskeletal: Flexion and extension of lumbar spine somewhat guarded secondary to pain, deep tendon reflexes normal, strength in upper and lower extremities [5/5], [abnormal gait noted] Neurological: Speech clear, filler shredder machine equal, no gross sensory deficit Procedure Details:: Informed consent was obtained and the risk and benefits of the procedure were explained to the patient. The patient was taken to the procedure room where noninvasive monitoring was placed including noninvasive blood pressure cuff and pulse oximeter. Patient's pump was interrogated. The area over the pump was cleansed with chlorhexidine as a cleansing solution. In sterile fashion the pump was accessed with a 22-gauge needle. Patient was placed prone on the exam table. Using fluoroscopy, the intrathecal pain pump was visualized. The pump was unable to be accessed due to angle of pump. Plan and Disposition:: We will schedule the patient for intrathecal pain pump refill this upcoming week, Friday with Dr. magaña. We will also schedule her MRI at that time. Patient has been informed to contact clinic if she has any concerns for next appointment. The patient and I specifically discussed risk factors for COVID19. These risks include, but are not limited to age greater than 60, heart or lung disease, diabetes, immunosuppression, and travel. We also discussed NSAIDs may worsen COVID19 infection or symptoms. Patient should not use NSAIDs to treat COVID19 signs or symptoms. Patient was also informed that any type of corticosteroid of any form (oral or injection) will decrease the patient's immune system response and may increase the likelihood of COVID19 infection [address] symptoms[address]. Mercado has reviewed this note and agrees with this plan of care. This note was dictated using voice recognition software and make contain errors or omissions.
[2019-09-27 15:46] VITALS: BP 135/85; PULSE 68; RESP 18; O2SAT 99
[2019-09-27 16:20] VITALS: BP 140/72; PULSE 66; RESP 20; O2SAT 100
[2019-09-27 16:32] VITALS: BP 145/88; PULSE 85; RESP 18; O2SAT 98
== END 2019-09-27 16:20 | disposition home or self-care (01) ==
LOC: SC.PAINP 15:01
PROVIDERS: PCP Emergency Medicine; Visit Provider Clinical Nurse Specialist Family Health
DX: M51.16 Intervertebral disc disorders with radiculopathy, lumbar region (principal); M96.1 Postlaminectomy syndrome, not elsewhere classified; I10 Essential (primary) hypertension; E03.9 Hypothyroidism, unspecified; J45.909 Unspecified asthma, uncomplicated; Z72.0 Tobacco use; Z88.1 Allergy status to other antibiotic agents; Z88.2 Allergy status to sulfonamides; Z88.8 Allergy status to other drugs, medicaments and biological substances; Z79.82 Long term (current) use of aspirin; Z79.51 Long term (current) use of inhaled steroids; Z79.899 Other long term (current) drug therapy
CPT/HCPCS: 95991

== ENCOUNTER 2019-10-01 10:55 | Day surgery (SDC) | payer MEDICAID, SELFPAY ==
[2019-10-01 11:01] VITALS: BP 138/101; PULSE 75; RESP 18; TEMP 36.1; O2SAT 100; BMI 51.0
--- NOTE | 2019-10-01 11:39 | HMH.PMPROC ---
- Procedure Date: 10/01/19 Time: 11:39 Anesthesiologist:: Stone Mercado MD Complications:: None Pre-procedure Diagnosis:: Degenerative disc disease of lumbar spine with lumbar radiculopathy symptoms and postlaminectomy syndrome lumbar spine Post-procedure Diagnosis:: Same Indications for Procedure:: Patient is a pleasant 49-year-old white female who we are treating for low back pain with lumbar radiculopathy symptoms. She is currently on periodic flow with an intrathecal morphine pain pump. Total daily dose is 0.85 mg/day. She does have some increasing low back pain and leg pain. She is scheduled for MRI today. We will empty her pump send her down for her MRI and then refill her with her intrathecal morphine infusion. She does have an antalgic gait. Motor strength of lower extremities is 5/5. There is no gross sensory deficit. Todd and urine drug screen are all appropriate Todd [id number] Procedure Details:: Pain pump refill Informed consent was obtained and the risks and benefits of the procedure was explained to the patient. The patient was taken to the procedure room. The pump was interrogated. The area over the pump was prepped using ChloraPrep. The pump was accessed with a 22-gauge needle. Approximately 5 mL's of the intrathecal solution was withdrawn and discarded. The patient was sent for MRI. After the patient returned from MRI the pump was then refilled with 20 mL's of intrathecal morphine 5 mg/mL. The pump was interrogated and the infusion was increased to total daily dose of 0.96 mg/day with periodic flow boluses of 0.08 mg/day. The patient tolerated the procedure well with no complication. Plan and Disposition:: We will follow-up with her in 2 weeks. Will reevaluate her symptoms at that time. We will follow-up on MRI as soon as it is read.
--- NOTE | 2019-10-01 11:40 | MR_ITS ---
PROCEDURE: MR KNEE LT WO CON CLINICAL INDICATION: PAIN IN LEFT KNEE Knee pain and instability COMPARISON: No exams were available for comparison TECHNIQUE: Routine multiplanar multi echo sequences are performed without gadolinium enhancement. FINDINGS: There is a moderate degree of motion artifact especially on the coronal images. The cruciate ligaments have an unremarkable appearance. The collateral ligaments are obscured due to motion but appear grossly unremarkable. No definite meniscal tear apparent. There is a small knee joint effusion. There is some thinning of the patellar cartilage. There is mild lateral subluxation of the patella. Prepatellar edema noted. There are tricompartmental osteoarthritic changes IMPRESSION: 1. Motion artifact obscures fine detail. 2. 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 No internal derangement demonstrated Dictated by: Jose Morrow MD 10/04/2019 10:07 Electronically signed by Jose Morrow MD in [place] 10/04/2019 10:07
[2019-10-01 11:41] VITALS: BP 142/88; PULSE 85; RESP 18; O2SAT 98
[2019-10-01 11:42] VITALS: BP 142/88; PULSE 86; RESP 18; O2SAT 98
[2019-10-01 12:57] VITALS: BP 125/60; PULSE 61; RESP 18; O2SAT 100
== END 2019-10-01 12:58 | disposition home or self-care (01) ==
PROVIDERS: PCP Emergency Medicine; Visit Provider Anesthesiology
DX: M51.16 Intervertebral disc disorders with radiculopathy, lumbar region (principal); M96.1 Postlaminectomy syndrome, not elsewhere classified; E66.9 Obesity, unspecified; M19.90 Unspecified osteoarthritis, unspecified site; Z82.49 Family history of ischemic heart disease and other diseases of the circulatory system; I10 Essential (primary) hypertension; J45.909 Unspecified asthma, uncomplicated; Z88.1 Allergy status to other antibiotic agents; Z88.2 Allergy status to sulfonamides; Z88.8 Allergy status to other drugs, medicaments and biological substances; Z79.82 Long term (current) use of aspirin; Z79.899 Other long term (current) drug therapy; M25.562 Pain in left knee
CPT/HCPCS: 62370; 73721

== ENCOUNTER 2019-12-20 13:16 | Day surgery (SDC) | payer MEDICAID, SELFPAY ==
[2019-12-20 13:34] VITALS: BP 139/79; PULSE 77; RESP 18; TEMP 36.5; O2SAT 98; BMI 49.1
[2019-12-20 13:53] VITALS: BP 147/87; PULSE 72; RESP 18; O2SAT 97
[2019-12-20 13:54] VITALS: BP 148/88; PULSE 82; RESP 18; O2SAT 98
--- NOTE | 2019-12-20 14:01 | HMH.PMPROC ---
- Procedure Date: 12/20/19 Time: 14:01 Anesthesiologist:: Leida Pineda APRN Complications:: None Pre-procedure Diagnosis:: Degenerative disc disease lumbar spine with lumbar radiculopathy symptoms and postlaminectomy syndrome lumbar spine, facet arthropathy Post-procedure Diagnosis:: Same Indications for Procedure:: Patient is a pleasant 49-year-old white female who presents today for intrathecal pain pump refill and reprogram. She is currently on a periodic flow going at 0.08 mg every 2 hours. She denies side effects from medication. Patient is having quite a bit of facet agenic pain. Very focal in nature. Patient has difficulty with rotational movement. She is extremely tender over her facet joints. We discussed a medial branch block/facet joint injection. She may be a neurotomy candidate. She is not on any anticoagulation therapy. Physical Exam General: Alert and oriented x3, no acute distress, pleasant and cooperative, [on room air] Lungs: Resps E/U, Symmetrical chest expansion, Eyes: PERRL Musculoskeletal: Flexion and extension of lumbar spine somewhat guarded secondary to pain, deep tendon reflexes normal, strength in upper and lower extremities [5/5], [abnormal gait noted] Neurological: speech clear, instrumentation specialist equal, no gross sensory deficits Procedure Details:: Informed consent was obtained and the risk and benefits of the procedure were explained to the patient. The patient was taken to the procedure room where noninvasive monitoring was placed including noninvasive blood pressure cuff and pulse oximeter. Patient's pump was interrogated. The area over the pump was cleansed with chlorhexidine as a cleansing solution. In sterile fashion the pump was accessed with a 22-gauge needle. Approximately 3 mL's were removed of the pump solution and discarded appropriately. The pump was then refilled with 20 mL's of morphine 5 mg/mL. The needle was withdrawn and a bandage was placed over the puncture site. The infusion rate was reprogrammed to continue at 0.08 mg every 2 hours. The patient tolerated the procedure well. Plan and Disposition:: Set the patient up for an L3-L4 L4-L5 L5-S1 bilateral medial branch block given the pain symptomology I do believe she would benefit from this. She has been instructed to call the office if she has any issues prior to her next appointment. She is denying anticoagulation therapy. Dr. Mercado has reviewed this note and agrees with this plan of care. This note was dictated using voice recognition software and may contain errors or omissions
[2019-12-20 14:14] VITALS: BP 119/67; PULSE 77; RESP 18; O2SAT 98
== END 2019-12-20 14:15 | disposition home or self-care (01) ==
LOC: SC.PAINP 13:17
PROVIDERS: PCP Emergency Medicine; Visit Provider Clinical Nurse Specialist Family Health
DX: M51.16 Intervertebral disc disorders with radiculopathy, lumbar region (principal); M96.1 Postlaminectomy syndrome, not elsewhere classified; M12.88 Other specific arthropathies, not elsewhere classified, other specified site; I10 Essential (primary) hypertension; J45.909 Unspecified asthma, uncomplicated; K21.9 Gastro-esophageal reflux disease without esophagitis; F41.9 Anxiety disorder, unspecified; F32.9 Major depressive disorder, single episode, unspecified; E07.9 Disorder of thyroid, unspecified; Z90.49 Acquired absence of other specified parts of digestive tract
CPT/HCPCS: 95991

== ENCOUNTER 2019-12-31 13:12 | Day surgery (SDC) | payer MEDICAID, SELFPAY ==
[2019-12-31 13:17] VITALS: BP 115/63; PULSE 79; RESP 18; TEMP 36.4; O2SAT 100; BMI 49.1
[2019-12-31 13:50] VITALS: BP 142/78; PULSE 89; RESP 18; O2SAT 98
[2019-12-31 13:52] VITALS: BP 148/78; PULSE 79; RESP 18; O2SAT 98
--- NOTE | 2019-12-31 13:58 | HMH.PMPROC ---
- Procedure Date: 12/31/19 Time: 13:58 Anesthesiologist:: Stone Mercado MD Complications:: None Pre-procedure Diagnosis:: Degenerative disc disease of lumbar spine with lumbar spondylosis and facet arthropathy of lumbar spine Post-procedure Diagnosis:: Same Indications for Procedure:: Patient is a pleasant 49-year-old white female who we are treating for low back pain with lumbar spondylosis and lumbar facet arthropathy. She does have an intrathecal morphine pain pump in place. She is doing very well with her pain pump. She is currently going 0.08 mg boluses every 2 hours. She is having some pain over the facet joints of L4-5 and L5-S1 bilaterally. We will do bilateral lumbar medial branch block/facet joint injections of L4-5 and L5-S1 today. Procedure Details:: Lumbar medial branch block Informed consent was obtained and the risks and benefits of the procedure was explained to the patient. The back was prepped using ChloraPrep. The skin and subcutaneous tissues were anesthetized using lidocaine. I placed 22-gauge spinal needles into the facet joint/medial branches of L4-L5 and L5-S1 bilaterally. Needle placement was confirmed with dye. After this we injected 3 mL bupivacaine 0.25% and Depo-Medrol 20 mg into each facet joint/medial branch of L4-L5 and L5-S1 bilaterally. We used a total of 80 mg Depo-Medrol for both levels bilaterally. The patient tolerated the procedure well with no complications. Plan and Disposition:: We will follow-up with this patient in 2 weeks. If successful we will plan on RF ablation to the same facet joints of L4-5 and L5-S1 bilaterally. Will reevaluate symptoms at that time.
[2019-12-31 14:05] VITALS: BP 131/71; PULSE 64; RESP 20; O2SAT 100
== END 2019-12-31 14:05 | disposition home or self-care (01) ==
LOC: SC.PAINP 13:13
PROVIDERS: PCP Nurse Practitioner Family; Visit Provider Anesthesiology
DX: M51.36 Other intervertebral disc degeneration, lumbar region (principal); M12.88 Other specific arthropathies, not elsewhere classified, other specified site; M47.816 Spondylosis without myelopathy or radiculopathy, lumbar region; I10 Essential (primary) hypertension; E66.9 Obesity, unspecified; F32.9 Major depressive disorder, single episode, unspecified; Z72.0 Tobacco use; Z88.1 Allergy status to other antibiotic agents; Z88.2 Allergy status to sulfonamides
CPT/HCPCS: 64493; 64494; J1030; Q9966

== ENCOUNTER → 2020-01-11 10:30 | Outpatient (CLI) | payer MEDICAID, SELFPAY ==
[2020-01-11 11:28] LABS: Basophils # 0.1 K/mm3 (0-0.2); Basophils % 0.5 % (0.1-2.0); Eosinophils # 0.2 K/mm3 (0.0-0.4); Eosinophils % 1.7 % (0.1-12.0); Hematocrit 41.9 % (37.0-47.0); Hemoglobin 13.2 g/dL (12.2-16.2); Lymphocytes # 2.7 K/mm3 (0.7-4.5); Lymphocytes % 29.4 % (10-50); Mean Corpuscular HGB Conc 31.5 g/dL (31.8-35.4); Mean Corpuscular Hemoglobin 30.2 pg (27.0-31.2); Mean Corpuscular Volume 95.8 fl (81-99); Monocytes # 0.3 K/mm3 (0.1-1.0); Monocytes % 3.3 % (1.7-9.3); Neutrophils % 65.1 % (37.0-80.0); Platelet Count 362 K/mm3 (142-424); Red Blood Count 4.37 M/mm3 (4.20-5.40); Red Cell Distribution Width 14.1 % (11.5-17.5); White Blood Count 9.3 K/mm3 (4.8-10.8)
[2020-01-11 11:40] LABS: Alanine Aminotransferase 16 U/L (12-78); Albumin Level 4.2 g/dl (3.5-5.0); Albumin/Globulin Ratio 1.3 (1.1-1.8); Alkaline Phosphatase 211 U/L (38-126); Anion Gap 10.9 mEq/L (5-15); Aspartate Amino Transferase 22 U/L (14-36); Bilirubin,Total 0.3 mg/dl (0.2-1.3); Blood Urea Nitrogen 18 mg/dl (7-17); Calcium 9.7 mg/dl (8.4-10.2); Carbon Dioxide 35 mmol/L (22.0-30.0); Chloride 97 mmol/L (98-107); Chol/HDL Ratio 2.7 (1-3.5); Cholesterol 171 mg/dl (140-200); Estimated Glomerular Filt Rate 76 ml/min (>60); GFR (African American) 92 ML/MIN (>60); Globulin 3.3 g/dL (1.3-3.2); Glucose 105 mg/dl (74-100); HDL Cholesterol 64 mg/dl (40-60); Potassium 4.9 mmoL/L (3.5-5.1); Sodium 138 mmol/L (136-145); Total Protein,Serum 7.5 g/dl (6.3-8.2); Triglycerides 100 mg/dl (30-150); VLDL Cholesterol 20 mg/dL (0-40)
[2020-01-11 11:51] LABS: Direct LDL Cholesterol 97.88 mg/dL (100-129)
[2020-01-11 11:56] LABS: T4 (Thyroxine) 7.9 ug/dl (5.53-11.0)
[2020-01-11 12:10] LABS: Thyroid Stimulating Hormone 7.53 uIU/mL (0.465-4.68)
== END ==
PROVIDERS: Visit Provider Nurse Practitioner Family
DX: R53.83 Other fatigue (principal)
CPT/HCPCS: 36415; 80053; 80061; 84436; 84443; 85025

== ENCOUNTER → 2020-01-18 14:07 | Outpatient (CLI) | payer MEDICAID, SELFPAY ==
--- NOTE | 2020-01-18 14:08 | CA_ITS ---
APPROVED REPORT EXAM: Comprehensive 2D, Doppler, and color-flow Echocardiogram Electricity Trader: Robyn Antonio CRT Ht: 5 ft 1 in Wt: 288lbs BSA: 2.21 BP: 150/84 mmHg Indications: COPD, Shortness of Breath, Obesity, Hypertension/HDD 2D Dimensions LVOT 1.69 cm (M/F) 1.5-2.5 M-Mode Dimensions RVDd 2.61 cm (0.9-2.6) LA Diam 4.41 cm (1.9-4.0) LVDd 5.33 cm (3.5-5.7) Ao Diam 2.69 cm (2.0-3.7) LVDs 3.65 cm (3.5-5.7) IVSd 1.11 cm (0.6-1.1) PWd 0.36 cm (0.6-1.1) EF (Teich) 58.90% FS 31.50% EDV (Teich) 137.10 mL ESV (Teich) 56.30 mL LV Diastology E Decel Time 207.00 (160-240 msec) E/A Ratio 0.97 MED E' 9.90 (< 7 cm/sec) E'/MED E' Ratio 9.29 (>14) LAT E' 10.50 (<10 cm/sec) E/LAT E' Ratio 8.76 (>14) Aortic Valve LVOT Max 162.00 (70-110 cm/s) LVOT VTI 35.83 cm AoV Peak Emil. 194.00 (50-130 cm/s) AO Peak GR. 15.10 mmHg AO Mean GR. 7.70 (<5 mmHg) AO VTI 43.81 (18-25 cm) MAHIN (VTI) 1.83 (2.5-4.5 cm2) Mitral Valve MV A Velocity 95.00 (40-130 cm/s) E/A Ratio 0.97 MV Decel. Time 207.00 (160-240 ms) Pulmonary Valve PV Peak Velocity 112.00 (50-150 cm/s) Tricuspid Valve TR P. Velocity 234.00 cm/s RAP Estimate 10.00 mmHg RVSP 32.00 mmHg Left Ventricle Left atrium is mildly enlarged, left ventricle is normal size, mild concentric left ventricular hypertrophy, visually estimated ejection fraction 55% with no regional wall motion abnormality, endocardial surfaces are very poorly visualized. Grade 1 diastolic dysfunction seen without tissue Doppler evidence of raise left atrial pressure. Right Ventricle Right atrium and right ventricle are normal size and contractility. Aortic Valve Aortic valve is minimally thickened and fibrosed, there is no aortic stenosis or aortic insufficiency. Mitral Valve Mitral valve is grossly normal, there is trace mitral regurgitation. Tricuspid Valve Tricuspid valve is grossly normal, there is trace tricuspid regurgitation. Pulmonic Valve Pulmonic valve is poorly visualized. Great Vessels Aortic root is normal size. Pericardium No significant pericardial effusion noted. Conclusion 1. Technically difficult study because of the patient factors and poor acoustic windows. 2. Mildly enlarged left atrium, normal left ventricular size, mild concentric left ventricular hypertrophy, visually estimated ejection fraction 55% with no regional wall motion abnormality, grade 1 diastolic dysfunction seen without tissue Doppler evidence of raise left atrial pressure. 3. Trace mitral and tricuspid regurgitation. 4. No significant pericardial effusion noted. Electronically signed by : Evan Chang, 01/19/2020 05:25:01
--- NOTE | 2020-01-18 14:11 | XR_ITS ---
PROCEDURE: XR CHEST 2V CLINICAL HISTORY: elevated alk phos Shortness of air, elevated alkaline phosphatase, fluid around heart possible, current smoker COMPARISON: CR XR CHEST 2V from 10/26/2018 FINDINGS: Mild cardiomegaly without failure. Patient's arms are down by either side creating artifact along the right lateral chest wall on both sides. The lungs are clear without infiltrates, suspicious nodules, or pleural effusions. No acute bony abnormalities. IMPRESSION: No acute findings. Dictated by: Jose Morrow MD 01/18/2020 15:13 Jose Morrow MD in [place] 01/18/2020 15:13
== END ==
PROVIDERS: PCP Nurse Practitioner Family; Visit Provider Urology
DX: R06.02 Shortness of breath (principal); R60.0 Localized edema; I10 Essential (primary) hypertension; R74.8 Abnormal levels of other serum enzymes
CPT/HCPCS: 71046; 93306

== ENCOUNTER 2020-03-06 13:43 | Day surgery (SDC) | payer MEDICAID, SELFPAY ==
[2020-03-06 13:59] VITALS: BP 151/65; PULSE 75; RESP 18; TEMP 36.6; O2SAT 98; BMI 52.9
[2020-03-06 14:18] VITALS: BP 160/61; PULSE 88; RESP 18; O2SAT 98
[2020-03-06 14:20] VITALS: BP 158/65; PULSE 69; RESP 18; O2SAT 99
--- NOTE | 2020-03-06 14:22 | HMH.PMPROC ---
- Procedure Date: 03/06/20 Time: 14:23 Anesthesiologist:: Leida Pineda APRN Complications:: None Pre-procedure Diagnosis:: Degenerative disc disease lumbar spine lumbar spondylosis facet arthropathy lumbar postlaminectomy syndrome Post-procedure Diagnosis:: Same Indications for Procedure:: Patient is a pleasant 49-year-old white female who presents today for intrathecal pain pump refill and reprogram overall she is doing extremely well with her intrathecal morphine infusion going at 0.08 mg every 2 hours. Patient would like a slight increase. She rates her pain today 4 out of 10. Patient [facility] #[id number] reviewed and appropriate drug screens have been appropriate. Physical Exam General: Alert and oriented x3, no acute distress, pleasant and cooperative, [on room air] Lungs: Resps E/U, Symmetrical chest expansion, Eyes: PERRL Musculoskeletal: Flexion and extension of lumbar spine somewhat guarded secondary to pain, deep tendon reflexes normal, strength in upper and lower extremities [5/5], [abnormal gait noted] Neurological: speech clear, shredder tender peat equal, no gross sensory deficits Procedure Details:: Informed consent was obtained and the risk and benefits of the procedure were explained to the patient. The patient was taken to the procedure room where noninvasive monitoring was placed including noninvasive blood pressure cuff and pulse oximeter. Patient's pump was interrogated. The area over the pump was cleansed with chlorhexidine as a cleansing solution. In sterile fashion the pump was accessed with a 22-gauge needle. Approximately 6 mL's were removed of the pump solution and discarded appropriately. The pump was then refilled with 20 mL's of morphine 5 mg/mL. The needle was withdrawn and a bandage was placed over the puncture site. The infusion rate was reprogrammed to 0.1 mg every 2 hours for total daily dose of 1.2 mg of morphine a day. The patient tolerated the procedure well. Plan and Disposition:: We will follow up with the patient at her next intrathecal pain pump refill and reprogram she has been instructed to call the office if she has any issues prior to her next appointment. Dr. Mercado has reviewed this note and agrees with this plan of care. This note was dictated using voice recognition software and may contain errors or omissions
[2020-03-06 14:35] VITALS: BP 123/59; PULSE 70; RESP 18; O2SAT 98
== END 2020-03-06 14:35 | disposition home or self-care (01) ==
LOC: SC.PAINP 13:44
PROVIDERS: PCP Nurse Practitioner Family; Visit Provider Clinical Nurse Specialist Family Health
DX: M51.36 Other intervertebral disc degeneration, lumbar region (principal); M47.816 Spondylosis without myelopathy or radiculopathy, lumbar region; M96.1 Postlaminectomy syndrome, not elsewhere classified
CPT/HCPCS: 62370

== ENCOUNTER 2020-04-10 16:00 | Outpatient (RCR) | payer MEDICAID, SELFPAY ==
--- NOTE | 2020-03-08 13:31 | HMH.PTOPWND ---
Rehab Outpt Wound Evaluation Rehab OP Wound Evaluation Start: 03/08/20 13:12 Freq: Status: Active Protocol: Document 03/08/20 13:25 LEW (Rec: 03/08/20 13:31 PHORNE [id number]) Electronically Signed By Jaya Sherman, PT 03/08/20 13:25 Subjective/History History History Pt is 49 yowf who presents with c/o B LE edema x > 5 yrs, L currently worse than R. She reports pain in B lower legs that is worse with walking, and significant tenderness to palpation. She reports she is currently taking oral abx due to being diagnosed with L lower leg cellulitis and has mildly increased redness on the L gaitor area of the leg. She has PMH of COPD, Asthma, and obesity. Subjective Subjective Currently no pain at rest, pain is 9/10 with walking even short periods. Lymphedema Eval Classification of Lymphedema Secondary Lymphedema Yes Stemmer's sign Stemmer's Sign yes Stage of Lymphedema Lymphedema stages Stage II (Pitting edema, increased fibrosis w/ decreased pitting) Skin Changes Dry Skin Yes Taut, Shiny Skin Yes Skin Folds Yes Redness Yes Brittle Uneven Nails Yes Discoloration of Skin Yes Other Changes Yes Pain Scale Pain Scale (0-10) 9 Affected Extremities Areas Affected by Lymphedema/Edema Right Lower Extremity,Left Lower Extremity Manual Lymphatic Drainage Treatment Area MLD Treatment Area Right Lower Extremity,Left Lower Extremity Wound Problems/Impairments Impairments Problems/Impairmments Palpation Tenderness,Impaired Endurance,Impaired Transfers, Impaired Walking,Impaired Standing,Impaired Recreational Activities,Increased Edema, Lymphedema Present,Subjective C/O Pain,Impaired Self Care/ Self Management Prognosis Rehab Potential Fair Clinical Impression Consistent with Diagnosis Yes Short Term Goals Number of Weeks 4 Decreased Palpation Tenderness Yes: 03/06 De
--- NOTE | 2020-04-10 15:48 | HMH.RHREAS ---
Rehab Reassessment Rehab OP Re-assessment Start: 04/10/20 15:44 Freq: Status: Active Protocol: Document 04/10/20 15:44 LEW (Rec: 04/10/20 15:48 LEW [id number]) Electronically Signed By Jaya Sherman, PT 04/10/20 15:44 Rehab Re-assessment Subjective Subjective Pt reports less pain in B LE overall, but palpation tenderness remains increased. Objective Objective Notes Circumferential measurements: R LE total 288.6 cm which is - 5.0 cm since initial eval. L LE total 297.1 cm which is -1. 8 cm since initial eval. Assessment Progress Assessment Progressing as Expected Assessment Notes Pt continues to have pain and tenderness to palpation. However, she understands that her diet and time spent with legs in dependent positions with affect this. Edema is steadily decreasing overall. Patient goals met ST,2,3,[address] LT,2,3,4,5,6,7 Revised Goals none Plan Plan Continue per initial POC. Frequency of Therapy 2 x/wk Duration of therapy 8 wks Time and Billing Re-Eval Time 15 Re-Eval Billing Units 1 PHYSICIAN CERTIFICATION: I certify the specified therapy services for Marcy Roe are required, authorized, and reviewed every 30 days.
== END 2020-04-10 16:05 | disposition home or self-care (01) ==
LOC: PT 16:00
PROVIDERS: PCP Nurse Practitioner Family; Visit Provider Urology
DX: R60.0 Localized edema (principal)
CPT/HCPCS: 97140; 97162; 97164

== ENCOUNTER → 2020-04-26 14:58 | Outpatient (CLI) | payer MEDICAID, SELFPAY ==
--- NOTE | 2020-04-26 14:58 | US_ITS ---
PROCEDURE: US THYROID CLINICAL INDICATION: left thyroid nodule COMPARISON: No exams were available for comparison FINDINGS: The right lobe measures 4.6 x 1.5 x 1.3 cm. There is a vague area of decreased echogenicity in the mid aspect of the right lobe measuring 5 mm possibly due to small hypoechoic nodule versus heterogeneous echogenicity. The left lobe is 4 x 1.6 x 1.3 cm. A 2nd 8 mm area of decreased echogenicity is present in the upper pole and may be due to small nodule. The left lobe is 4.4 x 1.6 x 1.3 cm with a vague 5 mm hypoechoic nodule superiorly. The isthmus has an unremarkable appearance. Just below the chin on the left there is a 6 x 5 mm nodule hypoechoic peripherally and with increased echogenicity centrally and may be due to small lymph node. IMPRESSION: Vague bilateral thyroid nodular areas. Consider 6-12 month follow-up to confirm stability Palpable abnormality below the left chin may be due to small lymph node at 6 x 5 mm Dictated by: Jose Morrow MD 04/26/2020 18:23 Jose Morrow MD in [place] 04/26/2020 18:23
== END ==
PROVIDERS: PCP Nurse Practitioner Family; Visit Provider Family Medicine
DX: E04.1 Nontoxic single thyroid nodule (principal)
CPT/HCPCS: 76536

== ENCOUNTER 2020-05-08 13:07 | Day surgery (SDC) | payer MEDICAID, SELFPAY ==
[2020-05-08 13:19] VITALS: BP 115/74; PULSE 80; RESP 20; TEMP 36.3; O2SAT 95; BMI 52.5
[2020-05-08 13:36] VITALS: BP 160/82; PULSE 74; RESP 18; O2SAT 99
--- NOTE | 2020-05-08 13:37 | P.PCN_ITS ---
- Procedure Date: 05/08/20 Time: 13:37 Anesthesiologist:: Leida Pineda APRN Complications:: None Pre-procedure Diagnosis:: Degenerative disc disease lumbar spine lumbar spondylosis facet arthropathy lumbar postlaminectomy syndrome Post-procedure Diagnosis:: Same Indications for Procedure:: Patient is a pleasant 50-year-old white female here today for intrathecal pain pump refill and reprogram. She is currently being treated for low back pain. We are currently treating her with intrathecal morphine infusion going at 0.1 mg every 2 hours. She denies any side effects to the medications at this time. I will be increasing her concentration from 5 mg to 10 mg/mL. Todd was reviewed and is appopraite. Procedure Details:: Informed consent was obtained and the risk and benefits of the procedure were explained to the patient. The patient was taken to the procedure room where noninvasive monitoring was placed including noninvasive blood pressure cuff and pulse oximeter. Patient's pump was interrogated. The area over the pump was cleansed with chlorhexidine as a cleansing solution. In sterile fashion the pump was accessed with a 22-gauge needle. Approximately [4 ] mL's were removed of the pump solution and discarded appropriately. The pump was then refilled with 20 mL's of [20 mL morphine 10 mg/mL]. The needle was withdrawn and a ba ndage was placed over the puncture site. The infusion rate was reprogrammed to [continued at 1.2 mg/day]. The patient tolerated the procedure well. Plan and Disposition:: We will follow up with the patient at her next intrathecal pain pump refill and reprogram she has been instructed to contact the office if she has any issues prior to her next appointment. Dr. Mercado has reviewed this note and agrees with this plan of care. This note was dictated using voice recognition software and may contain errors or omissions
[2020-05-08 13:42] VITALS: BP 158/84; PULSE 74; RESP 18; O2SAT 99
[2020-05-08 14:58] VITALS: BP 114/65; PULSE 64; RESP 20; O2SAT 95
== END 2020-05-08 13:50 | disposition home or self-care (01) ==
LOC: SC.PAINP 13:08
PROVIDERS: PCP Nurse Practitioner Family; Visit Provider Clinical Nurse Specialist Family Health
DX: M51.36 Other intervertebral disc degeneration, lumbar region (principal); M47.816 Spondylosis without myelopathy or radiculopathy, lumbar region; M54.06 Panniculitis affecting regions of neck and back, lumbar region; M96.1 Postlaminectomy syndrome, not elsewhere classified; Z72.0 Tobacco use; I10 Essential (primary) hypertension; J45.909 Unspecified asthma, uncomplicated; F41.9 Anxiety disorder, unspecified; K21.9 Gastro-esophageal reflux disease without esophagitis; E07.9 Disorder of thyroid, unspecified
CPT/HCPCS: 95991

== ENCOUNTER → 2020-05-17 17:26 | Outpatient (CLI) | payer MEDICAID, SELFPAY ==
[2020-05-17 18:06] LABS: Basophils % 0.4 % (0.1-2.0); Eosinophils # 0.3 K/mm3 (0.0-0.4); Eosinophils % 3.8 % (0.1-12.0); Hematocrit 40.3 % (37.0-47.0); Lymphocytes # 1.9 K/mm3 (0.7-4.5); Mean Corpuscular HGB Conc 32.2 g/dL (31.8-35.4); Mean Corpuscular Hemoglobin 29.6 pg (27.0-31.2); Mean Corpuscular Volume 91.9 fl (81-99); Mean Platelet Volume 7.4 fl (7.4-10.4); Monocytes # 0.3 K/mm3 (0.1-1.0); Neutrophils # 5.2 K/mm3 (1.8-7.8); Neutrophils % 66.9 % (37.0-80.0); Platelet Count 353 K/mm3 (142-424); Red Blood Count 4.39 M/mm3 (4.20-5.40); Red Cell Distribution Width 13.6 % (11.5-17.5); White Blood Count 7.8 K/mm3 (4.8-10.8)
[2020-05-17 18:28] LABS: Chloride 106 mmol/L (98-107); Sodium 140 mmol/L (136-145)
[2020-05-17 18:29] LABS: Potassium 4.2 mmoL/L (3.5-5.1)
[2020-05-17 18:31] LABS: Alanine Aminotransferase 17 U/L (12-78); Alkaline Phosphatase 146 U/L (38-126); Anion Gap 16.2 mEq/L (5-15); Aspartate Amino Transferase 29 U/L (14-36); Bilirubin,Total 0.6 mg/dl (0.2-1.3); Blood Urea Nitrogen 15 mg/dl (7-17); Carbon Dioxide 22 mmol/L (22.0-30.0); Estimated Glomerular Filt Rate 66 ml/min (>60); GFR (African American) 80 ML/MIN (>60)
[2020-05-17 18:32] LABS: Albumin Level 4.5 g/dl (3.5-5.0); Albumin/Globulin Ratio 1.2 (1.1-1.8); Calcium 9.4 mg/dl (8.4-10.2); Cholesterol 184 mg/dl (140-200); Globulin 3.7 g/dL (1.3-3.2); Glucose 117 mg/dl (74-100); HDL Cholesterol 37 mg/dl (40-60); Total Protein,Serum 8.2 g/dl (6.3-8.2); Triglycerides 247 mg/dl (30-150); VLDL Cholesterol 49 mg/dL (0-40)
[2020-05-17 18:47] LABS: 25-OH Vitamin D, Total 14.2 ng/mL (30-100)
[2020-05-17 19:44] LABS: Direct LDL Cholesterol 106.24 mg/dL (100-129)
[2020-05-17 21:28] LABS: T4 (Thyroxine) 10.7 ug/dl (5.53-11.0)
[2020-05-18 13:12] LABS: Hemoglobin A1C 5.7 % (4.0-6.0)
== END ==
PROVIDERS: Visit Provider Nurse Practitioner Family
DX: R53.83 Other fatigue (principal); E03.9 Hypothyroidism, unspecified; E66.3 Overweight; I10 Essential (primary) hypertension; R73.09 Other abnormal glucose; E55.9 Vitamin D deficiency, unspecified
CPT/HCPCS: 80053; 80061; 82306; 83036; 84436; 84443; 85025

== ENCOUNTER → 2020-05-22 13:22 | Outpatient (POV) | payer MEDICAID, SELFPAY ==
[2020-05-22 13:28] VITALS: BP 133/88; PULSE 78; RESP 20; TEMP 36.8; O2SAT 95; BMI 53.4
--- NOTE | 2020-05-22 13:45 | HMH.PMPROC ---
- Procedure Date: 05/22/20 Time: 13:46 Anesthesiologist:: Leida Pineda APRN Complications:: None Pre-procedure Diagnosis:: Generative disc disease lumbar spine lumbar radiculopathy, postlaminectomy syndrome, back pain Post-procedure Diagnosis:: Same Indications for Procedure:: Patient is a pleasant 50-year-old white female who presents today for intrathecal pain pump reprogram. Patient is having increased pain rating an 8 out of 10. We will increase her intrathecal infusion today. If she does not get relief we will may move forward with updated imaging. She denies side effects from medication. Procedure Details:: Informed consent was obtained and the risk and benefits of the procedure were explained to the patient. The patient was taken to the procedure room where noninvasive monitoring was placed including noninvasive blood pressure cuff and pulse oximeter. Patient's pump was interrogated and reprogrammed. The infusion rate was increased to 1.5 mg/day of morphine. The patient tolerated the procedure well. Plan and Disposition:: See the patient back in a week and a half reassess her symptoms at that time she has been instructed to call the office if she has any issues prior to her next appointment. If she does not get relief from this we may move forward with updated imaging. Dr. Mercado has reviewed this note and agrees with this plan of care. This note was dictated using voice recognition software and may contain errors or omissions
== END ==
PROVIDERS: PCP Nurse Practitioner Family; Visit Provider Clinical Nurse Specialist Family Health
DX: M51.16 Intervertebral disc disorders with radiculopathy, lumbar region (principal); M96.1 Postlaminectomy syndrome, not elsewhere classified
CPT/HCPCS: 62368; 62370

== ENCOUNTER → 2020-05-26 10:52 | Outpatient (CLI) | payer MEDICAID, SELFPAY ==
--- NOTE | 2020-05-26 10:54 | XR_ITS ---
PROCEDURE: XR CHEST 2V CLINICAL HISTORY: elevated alk phos COMPARISON: No exams were available for comparison FINDINGS: The cardiomediastinal silhouette and pulmonary vascularity are within normal limits. There are small calcified hilar nodes bilaterally. The lungs are clear without infiltrates, suspicious nodules, or pleural effusions. No acute bony abnormalities. IMPRESSION: No acute findings. Dictated by: Dr. Dawood Corral MD 05/26/2020 12:20 Dr. Dawood Corral MD in [place] 05/26/2020 12:20
== END ==
PROVIDERS: PCP Nurse Practitioner Family; Visit Provider Nurse Practitioner Family
DX: R74.8 Abnormal levels of other serum enzymes (principal)
CPT/HCPCS: 71046

== ENCOUNTER → 2020-06-06 14:53 | Outpatient (CLI) | payer MEDICAID, SELFPAY ==
--- NOTE | 2020-06-06 14:54 | CT_ITS ---
PROCEDURE: CT SOFT TISSUE NECK WO CON CLINICAL HISTORY: Neck nodule/mass abnormal thyroid us Thyroid nodule Right anterior marked with BB No c/o pain US 04/26/20 COMPARISON: US US THYROID from 04/26/2020 TECHNIQUE: Oral Contrast: None IV Contrast: None Axial images obtained with sagittal and coronal reformats. All CT scans at the facility use one or more dose reduction, viz: automated exposure control, ma/kV adjustment per patient size (including targeted exams where dose is matched to indication, i.e. head), or iterative reconstruction technique. FINDINGS: There is mild mucosal thickening of the ethmoid sinuses and left maxillary sinus. An air-fluid levels present in the sphenoid sinus on the left. There is scattered small lymph nodes in the neck. The parotid and submandibular glands have an unremarkable appearance. BB is placed on the area of palpable concern which is located in the crease of the soft tissues in the right neck and supraclavicular area. No discrete mass is evident deep to the placed BB. The nodular opacity is present in this region which is felt to be due to the external jugular vein having a similar appearance on the left side. There are few scattered small lymph nodes in the neck the largest in the left submandibular region measuring approximately 1.9 x 1 cm and may actually represent 2 small nodes. No dominant adenopathy is apparent. Sensitivity of the exam is somewhat decreased without IV contrast. The nasopharynx, oropharynx and hypopharynx have an unremarkable appearance as does the epiglottis. No obvious thyroid mass. Lung apices are clear. Mild degenerative changes are present in the cervical spine. IMPRESSION: Scattered small cervical lymph nodes as described above. No abnormality evident at the area of the placed BB. No mass or abnormal fluid collection apparent. Mild sinus disease Dictated by: Jose Morrow MD 06/08/2020 10:21 Jose Morrow MD in [place] 06/08/2020 10:21
== END ==
PROVIDERS: PCP Nurse Practitioner Family; Visit Provider Nurse Practitioner Family
DX: E04.1 Nontoxic single thyroid nodule (principal)
CPT/HCPCS: 70490

== ENCOUNTER → 2020-06-12 10:43 | Outpatient (POV) | payer MEDICAID, SELFPAY ==
[2020-06-12 11:28] VITALS: BP 142/85; PULSE 88; RESP 18; O2SAT 98; BMI 52.1
--- NOTE | 2020-06-12 11:34 | HMH.PAINSOAP ---
[facility] Pain Management SOAP Note Subjective:: Patient is a pleasant 50-year-old white female who presents today for who presents today for follow-up. Patient had several intrathecal pain pump adjustments with no relief of her pain. We discussed epidural injections. I do believe her weight significantly attributes to her low back pain. Patient is morbidly obese. Patient I discussed a lumbar epidural steroid injection. She would like to move forward with this. She rates her pain 8 out of 10. ROS General: no recent weight change, no fever, no sleep disturbances Respiratory: no cough, no shortness of air, no recurring pulmonary infections Cardiovascular/Peripheral Vascular: No chest pain, No palpitations, no edema, no shortness of breath. Gastrointestinal: no new onset incontinence, normal bowel movements reported Genitourinary: no new onset incontinence Musculoskeletal: Back pain, leg pain Psychiatric: normal mood/ affect, Neurological: [denies new onset weakness in extremities], [denies new onset balance issues] Objective:: Physical Exam General: Alert and oriented x3, no acute distress, pleasant and cooperative, [on room air] morbidly obese Lungs: Resps E/U, Symmetrical chest expansion, Eyes: PERRL Musculoskeletal: Flexion and extension of lumbar spine somewhat guarded secondary to pain, deep tendon reflexes normal, strength in upper and lower extremities [5/5], [abnormal gait noted] Neurological: speech clear, 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 I will follow-up with her afterwards reassess her symptoms at that time she has been instructed to call the office if she has any issues prior to her next appointment. She is not on any anticoagulation therapy. [facility] History I have reviewed the patient's past medical history: Yes Medical History: Reports:: Asthma, Chronic Obstructive Pulmonary Disease (COPD), Gastroesophageal Reflux Disease(GERD), Hyperlipidemia, Hypertension Denies:: Cancer, Diabetes Mellitus Type 1, Diabetes Mellitus Type 2, Internal Pacemaker, MRSA, Seizures *Have you ever received a pneumonia vaccine?: Yes *Have you received a flu vaccine this season?: Yes Other Medical History: Reports: Hypothyroidism, Sinus Problems, Thyroid Disease. Denies: Blood Transfusion Reaction Laterality Cases: Bilateral: Other Other Surgeries: Yes: Appendectomy, Hysterectomy-Partial, Other (back surgery). No: Pacemaker Amputation: No Fractures: No - *Social History Smoking Status: Current every day smoker Tobacco Type: cigarettes # Packs/Day (cigarettes): 2 #Yrs smoked (if former smoker): 30 Alcohol Intake: never Substance Use Type: denies use *Occupational Status:: previously employed Housing: house Household Members: spouse *Travel in the last 8 weeks: None Family Hx:: Asthma, Hypertension, Heart Attack
== END ==
PROVIDERS: PCP Nurse Practitioner Family; Visit Provider Clinical Nurse Specialist Family Health
DX: M51.16 Intervertebral disc disorders with radiculopathy, lumbar region (principal); M96.1 Postlaminectomy syndrome, not elsewhere classified
CPT/HCPCS: 99212; G0463

== ENCOUNTER 2020-06-23 10:09 | Day surgery (SDC) | payer MEDICAID, SELFPAY ==
[2020-06-23 10:20] VITALS: BP 122/67; PULSE 83; RESP 18; TEMP 36.6; O2SAT 98; BMI 52.9
[2020-06-23 10:28] VITALS: BP 133/85; PULSE 85; RESP 18; O2SAT 98
[2020-06-23 10:31] VITALS: BP 138/89; BP 140/87; PULSE 85; RESP 18; O2SAT 98
--- NOTE | 2020-06-23 10:39 | P.PCN_ITS ---
- Procedure Date: 06/23/20 Time: 10:39 Anesthesiologist:: Stone Mercado MD Complications:: None Pre-procedure Diagnosis:: Degenerative disc disease of lumbar spine with lumbar radiculopathy symptoms. Post Laminectomy syndrome lumbar spine with previous fusion of L4-5 Post-procedure Diagnosis:: Same Indications for Procedure:: Patient is a pleasant 50-year-old white female who we are treating for low back pain with lumbar radiculopathy symptoms. She has increasing pain in the low back radiating down both legs. She has had previous surgery with fusion of L4- L5. She does have an intrathecal pain pump which is helping with her back pain. Her worst pain now is more sciatic type pain. We will do lumbar epidural steroid injection to see if this helps with her pain symptoms today. Procedure Details:: Lumbar epidural steroid injection under fluoroscopy Informed consent was obtained and the risk and benefits of the procedure was explained to the patient. The patient was taken to the procedure room. The patient was placed prone on the procedure table. The patient was prepped and draped in sterile fashion. C-arm fluoroscopy was used to view the lumbar spine. Skin and subcutaneous tissues were anesthetized using lidocaine. I placed an 18-gauge epidural needle and advanced into the L3-L4 interspace using fluoroscopic guidance and [id number] to air. After confirmation of needle placement in the epidural space with dye I injected 2 mL of lidocaine 1.5% with Depo-Medrol 80 mg. Patient tolerated the procedure well with no complications. Plan and Disposition:: We will follow-up with her in 2 weeks. Will reevaluate symptoms at that time.
[2020-06-23 10:49] VITALS: BP 129/63; PULSE 71; RESP 18; O2SAT 98
== END 2020-06-23 10:50 | disposition home or self-care (01) ==
LOC: SC.PAINP 10:10
PROVIDERS: PCP Nurse Practitioner Family; Visit Provider Anesthesiology
DX: M51.16 Intervertebral disc disorders with radiculopathy, lumbar region (principal); M96.1 Postlaminectomy syndrome, not elsewhere classified; E78.5 Hyperlipidemia, unspecified; I10 Essential (primary) hypertension; K21.9 Gastro-esophageal reflux disease without esophagitis; E03.9 Hypothyroidism, unspecified; Z88.1 Allergy status to other antibiotic agents; Z88.2 Allergy status to sulfonamides; Z88.8 Allergy status to other drugs, medicaments and biological substances; Z79.899 Other long term (current) drug therapy; Z79.82 Long term (current) use of aspirin
CPT/HCPCS: 62323; J1040; Q9966

== ENCOUNTER → 2020-07-06 13:37 | Outpatient (POV) | payer MEDICAID, SELFPAY ==
[2020-07-06 13:58] VITALS: BP 149/83; PULSE 70; RESP 18; BMI 52.9
--- NOTE | 2020-07-06 14:23 | HMH.PMPROC ---
- Procedure Date: 07/06/20 Time: 14:23 Anesthesiologist:: Leida Pineda APRN Complications:: None Pre-procedure Diagnosis:: Degenerative disc disease lumbar spine lumbar radiculopathy symptoms postlaminectomy syndrome lumbar spine previous fusion at L4-L5 Post-procedure Diagnosis:: Same Indications for Procedure:: Patient is a pleasant 50-year-old white female who we are treating for low back pain with lumbar radiculopathy symptoms. Patient had a lumbar epidural steroid injection she did not get much relief she rates her pain a 5 out of 10 today. We discussed her weight and the correlation with her back pain. We will start her in physical therapy. We will also change her pain pump back to periodic flow. Procedure Details:: Informed consent was obtained and the risk and benefits of the procedure were explained to the patient. The patient was taken to the procedure room where noninvasive monitoring was placed including noninvasive blood pressure cuff and pulse oximeter. Patient's pump was interrogated and reprogrammed. The infusion rate was changed to 0.15 mg every 2 hours of morphine. The patient tolerated the procedure well. Plan and Disposition:: We will start the patient in physical therapy I discussed with her the need to lose weight. I will see her back at her next intrathecal pain pump refill and reprogram she has been instructed to call our office if she has any issues prior to her next appointment. Dr. Mercado has reviewed this note and agrees with this plan of care. This note was dictated using voice recognition software and may contain errors or omissions
== END ==
PROVIDERS: PCP Nurse Practitioner Family; Visit Provider Clinical Nurse Specialist Family Health
DX: M51.16 Intervertebral disc disorders with radiculopathy, lumbar region (principal); M96.1 Postlaminectomy syndrome, not elsewhere classified; Z98.1 Arthrodesis status
CPT/HCPCS: 62368

== ENCOUNTER 2020-08-02 14:00 | Outpatient (RCR) | payer MEDICAID, SELFPAY ==
--- NOTE | 2020-06-12 09:26 | HMH.PTOPWND ---
Rehab Outpt Wound Evaluation Rehab OP Wound Evaluation Start: 06/12/20 09:04 Freq: Status: Active Protocol: Document 06/12/20 09:20 LEW (Rec: 06/12/20 09:26 [email or web address] [id number]) Electronically Signed By Jaya Sherman, PT 06/12/20 09:20 Subjective/History History History Pt is 50 yowf who presents with c/o B LE edema with pain x ~ 1-2 mos, L > R. She is well known to this clinic and has responded well to treatment in the past. She reports she has recently had difficulty keeping her legs propped due to change in her housing status, but when sha can keep them propped her edema does decrease. She reports pain throughout the lower legs, worse with increased edema. She has PMH of COPD, HL, HTN, Deidra, Appy, lumbar laminectomy, intrathecal pain pump. Subjective Subjective Pain in B lower legs 6/10. Palpation tenderness B lower legs 2/4. Lymphedema Eval Classification of Lymphedema Secondary Lymphedema Yes Stemmer's sign Stemmer's Sign no Stage of Lymphedema Lymphedema stages Stage II (Pitting edema, increased fibrosis w/ decreased pitting) Skin Changes Dry Skin Yes Skin Folds Yes Redness Yes Discoloration of Skin Yes Other Changes Yes Pain Scale Pain Scale (0-10) 6 Affected Extremities Areas Affected by Lymphedema/Edema Right Lower Extremity,Left Lower Extremity Manual Lymphatic Drainage Treatment Area MLD Treatment Area Right Lower Extremity,Left Lower Extremity Wound Problems/Impairments Impairments Problems/Impairmments Palpation Tenderness,Impaired Range of Motion,Impaired Endurance,Impaired Walking, Impaired Standing,Impaired Recreational Activities, Increased Edema,Lymphedema Present,Subjective C/O Pain, Impaired Self Care/Self Management Prognosis Rehab Potential
--- NOTE | 2020-07-12 15:15 | HMH.RHREAS ---
Rehab Reassessment Rehab OP Re-assessment Start: 07/12/20 15:09 Freq: Status: Active Protocol: Document 07/12/20 15:10 LEW (Rec: 07/12/20 15:15 LEW [id number]) Electronically Signed By Jaya Sherman, PT 07/12/20 15:10 Rehab Re-assessment Subjective Subjective Pt reports much less pain and tenderness, feels she is walking better. Objective Objective Notes Circumferential measurements: R LE -18.4 cm total since initial eval. L LE -12.2 cm total since initial eval. Assessment Progress Assessment Progressing as Expected Assessment Notes Much improved edema overall, less stiffness and doughy feeling in the tissues. Pt tolerating compression better during this round of treatment. Patient goals met ST,2,3,4,5 Goals Not Met LT,2,3,4,5,6,7 Revised Goals none Plan Plan Continue per initial POC. Frequency of Therapy 2 x/wk Duration of therapy 8 wks Time and Billing Re-Eval Time 15 Re-Eval Billing Units 1 PHYSICIAN CERTIFICATION: I certify the specified therapy services for Marcy Roe are required, authorized, and reviewed every 30 days.
== END 2020-08-02 14:05 | disposition home or self-care (01) ==
LOC: PT 14:00
PROVIDERS: PCP Nurse Practitioner Family; Visit Provider Nurse Practitioner Family
DX: M79.89 Other specified soft tissue disorders (principal)
CPT/HCPCS: 97140; 97162; 97164; 97760

== ENCOUNTER → 2020-08-14 14:16 | Day surgery (SDC) | payer MEDICAID, SELFPAY ==
[2020-08-14 14:23] VITALS: BP 144/87; PULSE 87; RESP 20; TEMP 36.6; O2SAT 98; BMI 52.5
[2020-08-14 14:42] VITALS: BP 150/88; PULSE 75; RESP 18; O2SAT 97
[2020-08-14 14:46] VITALS: BP 149/80; PULSE 73; RESP 18; O2SAT 98
--- NOTE | 2020-08-14 15:00 | HMH.PMPROC ---
- Procedure Date: 08/14/20 Time: 15:00 Anesthesiologist:: Taylor Adkins APRN Complications:: None Pre-procedure Diagnosis:: Disc disease lumbar spine with lumbar radiculopathy symptoms, postlaminectomy syndrome lumbar spine, spinal fusion L4-L5 Post-procedure Diagnosis:: Same Indications for Procedure:: Patient is a 50-year-old white female who presents today for intrathecal pain pump refill and reprogram. She has been treated for degenerative disc disease lumbar spine with lumbar radiculopathy symptoms. Patient says she is having some increased pain in her low back and does need an increase. She rates her pain a 6 out of 10 today. She is currently on morphine at 0.15 mg every 2 hours. She denies any side effects. We will increase her today to see if she gets relief. 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 The patient was taken to the procedure room where noninvasive monitoring was placed including noninvasive blood pressure cuff and pulse oximeter. Patient's pump was interrogated. The area over the pump was cleansed with chlorhexidine as a cleansing solution. In sterile fashion the pump was accessed with a 22-gauge needle. Approximately 5 mls of the pump solution was removed and discarded appropriately. The pump was then refilled with 20 mL's of morphine milligrams per male. The needle was withdrawn and a bandage was placed over the puncture site. The infusion rate was reprogrammed at morphine at 0.16 mg every 2 hours, daily dose of morphine at 1.92 mg/day. The patient tolerated well with no complication. Plan and Disposition:: We will see the patient back in the clinic at the next intrathecal refill. Patient has been instructed to contact the clinic with any concerns before the next appointment. Dr. Mercado has reviewed this note and agrees with this plan of care. This note was dictated using voice recognition software and make contain errors or omissions.
[2020-08-14 15:15] VITALS: BP 100/59; PULSE 66; RESP 20; O2SAT 98
== END ==
PROVIDERS: PCP Nurse Practitioner Family; Visit Provider Clinical Nurse Specialist Family Health
DX: M51.16 Intervertebral disc disorders with radiculopathy, lumbar region (principal); M96.1 Postlaminectomy syndrome, not elsewhere classified; M43.26 Fusion of spine, lumbar region

== ENCOUNTER → 2020-08-17 11:05 | Outpatient (CLI) | payer MEDICAID, SELFPAY ==
[2020-08-17 12:08] LABS: Basophils % 0.5 % (0.1-2.0); Eosinophils # 0.4 K/mm3 (0.0-0.4); Eosinophils % 5.3 % (0.1-12.0); Hematocrit 35.7 % (37.0-47.0); Hemoglobin 11.1 g/dL (12.2-16.2); Lymphocytes # 2.7 K/mm3 (0.7-4.5); Mean Corpuscular HGB Conc 31.1 g/dL (31.8-35.4); Mean Corpuscular Hemoglobin 28.7 pg (27.0-31.2); Mean Corpuscular Volume 92.2 fl (81-99); Mean Platelet Volume 6.8 fl (7.4-10.4); Monocytes # 0.4 K/mm3 (0.1-1.0); Monocytes % 5.6 % (1.7-9.3); Neutrophils # 3.7 K/mm3 (1.8-7.8); Neutrophils % 51.6 % (37.0-80.0); Platelet Count 309 K/mm3 (142-424); Red Blood Count 3.87 M/mm3 (4.20-5.40); Red Cell Distribution Width 13.1 % (11.5-17.5); White Blood Count 7.2 K/mm3 (4.8-10.8)
[2020-08-17 12:35] LABS: Hemoglobin A1C 5.3 % (4.0-6.0)
[2020-08-17 12:55] LABS: Alanine Aminotransferase 14 U/L (12-78); Albumin Level 3.9 g/dl (3.5-5.0); Albumin/Globulin Ratio 1.3 (1.1-1.8); Alkaline Phosphatase 129 U/L (38-126); Anion Gap 8.7 mEq/L (5-15); Aspartate Amino Transferase 23 U/L (14-36); Bilirubin,Total 0.4 mg/dl (0.2-1.3); Blood Urea Nitrogen 12 mg/dl (7-17); Calcium 8.7 mg/dl (8.4-10.2); Carbon Dioxide 32 mmol/L (22.0-30.0); Chloride 103 mmol/L (98-107); Chol/HDL Ratio 5.2 (1-3.5); Cholesterol 165 mg/dl (140-200); Estimated Glomerular Filt Rate 76 ml/min (>60); GFR (African American) 92 ML/MIN (>60); Globulin 2.9 g/dL (1.3-3.2); Glucose 95 mg/dl (74-100); HDL Cholesterol 32 mg/dl (40-60); Potassium 3.7 mmoL/L (3.5-5.1); Sodium 140 mmol/L (136-145); Total Protein,Serum 6.8 g/dl (6.3-8.2); Triglycerides 190 mg/dl (30-150); VLDL Cholesterol 38 mg/dL (0-40)
[2020-08-17 13:06] LABS: Direct LDL Cholesterol 93.45 mg/dL (100-129)
[2020-08-17 13:10] LABS: 25-OH Vitamin D, Total 25.2 ng/mL (30-100); T4 (Thyroxine) 8.8 ug/dl (5.53-11.0)
[2020-08-17 13:25] LABS: Thyroid Stimulating Hormone 3.56 uIU/mL (0.465-4.68)
== END ==
PROVIDERS: Visit Provider Nurse Practitioner Family
DX: E03.9 Hypothyroidism, unspecified (principal); I10 Essential (primary) hypertension; E55.9 Vitamin D deficiency, unspecified; E66.3 Overweight; R30.0 Dysuria
CPT/HCPCS: 36415; 80053; 80061; 82306; 83036; 84436; 84443; 85025; 87086; 87088; 87186

== ENCOUNTER 2020-10-30 14:08 | Day surgery (SDC) | payer MEDICAID, SELFPAY ==
[2020-10-30 14:15] VITALS: BP 123/55; PULSE 75; RESP 20; TEMP 36.7; O2SAT 98; BMI 51.0
[2020-10-30 14:19] VITALS: BP 133/75; BP 138/82; PULSE 67; PULSE 69; RESP 18; O2SAT 97; O2SAT 99
--- NOTE | 2020-10-30 14:33 | P.PCN_ITS ---
- Procedure Date: 10/30/20 Time: 14:33 Anesthesiologist:: Taylor Adkins APRN Complications:: None Pre-procedure Diagnosis:: Degenerative disc disease lumbar spine with lumbar radiculopathy symptoms, postlaminectomy syndrome lumbar spine spinal fusion L4-L5 Post-procedure Diagnosis:: Same Indications for Procedure:: Patient is a 50-year-old white female who presents today for intrathecal pain pump refill and reprogram. She is being treated for degenerative disc disease lumbar spine with lumbar radiculopathy symptoms. Patient rates her pain a 7 out of 10 today. She is currently on morphine at 1.92 mg/h, periodic flow at 0.16 mg every 2 hours. She would like an increase. She is having worse pain in her low back. We will increase her today to see if she gets relief. Drug screen and Todd are appropriate. She denies any side effects to the medicine. 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 The patient was taken to the procedure room where noninvasive monitoring was placed including noninvasive blood pressure cuff and pulse oximeter. Patient's pump was interrogated. The area over the pump was cleansed with chlorhexidine as a cleansing solution. In sterile fashion the pump was accessed with a 22-gauge needle. Approximately 5 mls of the pump solution was removed and discarded appropriately. The pump was then refilled with 20 mL's of morphine 10 mg per male. The needle was withdrawn and a bandage was placed over the puncture site. The infusion rate was reprogrammed at morphine 0.28 mg/day, periodic flow at 0.19 mg every 2 hours. The patient tolerated well with no complication. Plan and Disposition:: We will see the patient back in the clinic at the next intrathecal refill. Patient has been instructed to contact the clinic with any concerns before the next appointment. Dr. Mercado has reviewed this note and agrees with this plan of care. This note was dictated using voice recognition software and make contain errors or omissions.
[2020-10-30 14:38] VITALS: BP 123/56; PULSE 72; RESP 20; O2SAT 98
== END 2020-10-30 14:39 | disposition home or self-care (01) ==
LOC: SC.PAINP 14:09
PROVIDERS: PCP Nurse Practitioner Family; Visit Provider Clinical Nurse Specialist Family Health
DX: M51.16 Intervertebral disc disorders with radiculopathy, lumbar region (principal); M96.1 Postlaminectomy syndrome, not elsewhere classified; M43.26 Fusion of spine, lumbar region; Z45.1 Encounter for adjustment and management of infusion pump
CPT/HCPCS: 62370

== ENCOUNTER → 2020-11-15 18:06 | Outpatient (CLI) | payer MEDICAID, SELFPAY | PROVIDERS: Visit Provider Nurse Practitioner Family | DX: Z20.822 Contact with and (suspected) exposure to COVID-19 (principal); U07.1 COVID-19; R05 Cough; R43.0 Anosmia; R43.2 Parageusia; N39.0 Urinary tract infection, site not specified; B96.20 Unspecified Escherichia coli [E. coli] as the cause of diseases classified elsewhere | CPT/HCPCS: 87086; 87088; 87186; C9803; U0003; U0005 ==

== ENCOUNTER 2021-01-08 14:07 | Day surgery (SDC) | payer MEDICAID, SELFPAY ==
--- NOTE | 2021-01-08 14:09 | HMH.PMPROC ---
- Procedure Date: 01/08/21 Time: 14:09 Anesthesiologist:: Taylor Adkins APRN Complications:: None Pre-procedure Diagnosis:: Degenerative disc disease lumbar spine with lumbar radiculopathy symptoms, low back pain Post-procedure Diagnosis:: Same Indications for Procedure:: Patient is a pleasant 50-year-old white female who presents today for intrathecal pain pump [refill] [and reprogram]. The patient is being treated for degenerative disc disease lumbar spine with lumbar radiculopathy symptoms, chronic low back pain. Patient rates pain a 7 out of 10. Drug screen is appropriate. Todd [ ] has been reviewed and is appropriate. Patient says that she fell this week striking her left knee. She is having worse pain to her left knee. She did go to the emergency room and imaging was performed. She was negative for any fracture. We discussed applying diclofenac gel to the area which she can get [id number]. She would like to try this. She would like an increase in her intrathecal therapy. She is currently on morphine at 2.28 mg/day, periodic flow at 0.19 mg every 2 hours. She denies any side effects to the medication. Physical exam General: Alert and oriented x3, no acute distress, pleasant and cooperative, [on room air] Lungs: Respirations even and unlabored, symmetrical chest expansion Eyes: PERRL Musculoskeletal: Flexion and extension of bar [spine] and left lower extremity somewhat guarded secondary to pain, [antalgic gait noted] Neurological: Speech clear, no gross sensory deficit Procedure Details:: Informed consent was obtained and the risk and benefits of the procedure were explained to the patient. The patient was taken to the procedure room where noninvasive monitoring was placed including noninvasive blood pressure cuff and pulse oximeter. Patient's pump was interrogated. The area over the pump was cleansed with chlorhexidine as a cleansing solution. In sterile fashion the pump was accessed with a 22-gauge needle. Approximately 5 mls of the pump solution was removed and discarded appropriately. The pump was then refilled with 20 mL's of morphine 10 mg/mL. The needle was withdrawn and a bandage was placed over the puncture site. The infusion rate was reprogrammed at morphine at 2.5 mg/day, periodic flow at 0.2 mg every 2 hours. The patient tolerated well with no complication. Plan and Disposition:: We will see the patient back in the clinic at the next intrathecal refill. Patient has been instructed to contact the clinic with any concerns before the next appointment. Dr. Mercado has reviewed this note and agrees with this plan of care. This note was dictated using voice recognition software and make contain errors or omissions.
[2021-01-08 14:26] VITALS: BP 133/65; PULSE 57; RESP 18; TEMP 36.2; O2SAT 100; BMI 48.2
[2021-01-08 14:39] VITALS: BP 139/65; PULSE 64; RESP 18; O2SAT 98
[2021-01-08 14:41] VITALS: PULSE 55; RESP 18; O2SAT 99
[2021-01-08 15:00] VITALS: BP 144/66; PULSE 54; RESP 20; O2SAT 100
[2021-01-08 18:56] LABS: Amphetamine/Metha Screen,Urine Negative ng/ml (<1000)
[2021-01-08 18:57] LABS: Barbiturates Screen,Urine Negative ng/ml (<200); Benzodiazepines Screen,Urine Negative ng/ml (<200)
[2021-01-08 18:58] LABS: Cannabinoid Screen,Urine Negative ng/ml (<50)
[2021-01-08 18:59] LABS: Cocaine Screen,Urine Negative ng/ml (<300); Methadone Screen,Urine Negative ng/ml (<300)
[2021-01-08 19:00] LABS: Opiate Screen,Urine Positive ng/ml (<300); Phencyclidine Screen,Urine Negative ng/ml (<25)
== END 2021-01-08 15:00 | disposition home or self-care (01) ==
LOC: SC.PAINP 14:08
PROVIDERS: PCP Nurse Practitioner Family; Visit Provider Clinical Nurse Specialist Family Health
DX: M51.16 Intervertebral disc disorders with radiculopathy, lumbar region (principal); Z45.1 Encounter for adjustment and management of infusion pump; Z79.891 Long term (current) use of opiate analgesic
CPT/HCPCS: 62370; 80305

== ENCOUNTER 2021-03-12 13:01 | Day surgery (SDC) | payer MEDICAID, SELFPAY ==
[2021-03-12 13:13] VITALS: BP 149/83; PULSE 63; RESP 20; TEMP 36.2; O2SAT 98; BMI 46.5
[2021-03-12 13:29] VITALS: BP 175/83; PULSE 60; RESP 18; O2SAT 99
[2021-03-12 13:34] VITALS: PULSE 62; RESP 18; O2SAT 96
--- NOTE | 2021-03-12 13:39 | HMH.PMPROC ---
- Procedure Date: 03/12/21 Time: 13:39 Anesthesiologist:: Taylor Adkins APRN Complications:: None Pre-procedure Diagnosis:: Patient of this disease for lumbar spine with lumbar radiculopathy symptoms Post-procedure Diagnosis:: Same Indications for Procedure:: Patient is a pleasant 50-year-old female who presents today for intrathecal pain pump [refill] [and reprogram]. The patient is being treated for degenerative disease of the lumbar spine with lumbar radiculopathy symptoms. Patient is currently being managed with morphine 10 mg/mL at a rate of 2.5 mg/day. Patient has been getting significant relief from this medication. However, she has been experiencing severe sweating. The medication can contribute to this or patient says that it could be her thyroid. She has had issues with her thyroid and has not had in checked in years. She will follow up with PCP before we decide to change her medication. Patient denies any change to the location and type of pain. Patient rates pain a 7 out of 10. Drug screen is appropriate. Todd [id number] has been reviewed and is appropriate. ORT score is low risk. Physical exam General: Alert and oriented x3, no acute distress, pleasant and cooperative, [on room air] Lungs: Respirations even and unlabored, symmetrical chest expansion Eyes: PERRL Musculoskeletal: Flexion and extension of lumbar [spine] somewhat guarded secondary to pain, [antalgic gait noted] Neurological: Speech clear, no gross sensory deficit Procedure Details:: Informed consent was obtained and the risk and benefits of the procedure were explained to the patient. The patient was taken to the procedure room where noninvasive monitoring was placed including noninvasive blood pressure cuff and pulse oximeter. Patient's pump was interrogated. The area over the pump was cleansed with chlorhexidine as a cleansing solution. In sterile fashion the pump was accessed with a 22-gauge needle. Approximately 4.5 mls of the pump solution was removed and discarded appropriately. The pump was then refilled with 20 mL's of morphine 10 mg/mL. The needle was withdrawn and a bandage was placed over the puncture site. The infusion rate was continued at morphine 2.5 mg/day. The patient tolerated well with no complication. Plan and Disposition:: Patient will follow up with her PCP about her thyroid. We will see the patient back in the clinic at the next intrathecal refill. Patient has been instructed to contact the clinic with any concerns before the next appointment. Dr. Mercado has reviewed this note and agrees with this plan of care. This note was dictated using voice recognition software and make contain errors or omissions.
[2021-03-12 13:46] VITALS: BP 129/81; PULSE 53; RESP 20; O2SAT 98
== END 2021-03-12 13:47 | disposition home or self-care (01) ==
LOC: SC.PAINP 13:02
PROVIDERS: PCP Nurse Practitioner Family; Visit Provider Clinical Nurse Specialist Family Health
DX: M51.16 Intervertebral disc disorders with radiculopathy, lumbar region (principal); Z45.1 Encounter for adjustment and management of infusion pump; E03.9 Hypothyroidism, unspecified; E78.5 Hyperlipidemia, unspecified; I10 Essential (primary) hypertension; J44.9 Chronic obstructive pulmonary disease, unspecified; K21.9 Gastro-esophageal reflux disease without esophagitis; Z72.0 Tobacco use; J45.909 Unspecified asthma, uncomplicated; Z88.1 Allergy status to other antibiotic agents; Z88.2 Allergy status to sulfonamides; Z88.8 Allergy status to other drugs, medicaments and biological substances
CPT/HCPCS: 95991

== ENCOUNTER 2021-04-16 11:32 | Emergency (ER) | payer MEDICAID, SELFPAY ==
[2021-04-16 13:05] VITALS: BP 140/80; PULSE 77; RESP 18; TEMP 36.9; O2SAT 99; BMI 45.9
--- NOTE | 2021-04-16 13:39 | HMH.EDUTC ---
[facility] [place] Disposition Clinical Impression: Sinusitis Qualifiers: Sinusitis location: unspecified location Chronicity: unspecified Qualified Code(s): J32.9 - Chronic sinusitis, unspecified Disposition: Home, Self-Care Condition on Discharge: Good Instructions: Sinusitis, DI for Sinusitis, Cefdinir Additional Instructions: ? Start antibiotic today. Be sure to complete entire prescription even if feeling better ? Monitor temp. Tylenol every 4 hours as needed and / or ibuprofen every 6 hours as needed ( As long as your primary care physician has told you that it ok to take both. For fever/aches/pains ER if no less than 101 despite Tylenol or Motrin ? Humidifier/vaporizer or hot steamy shower ? Inhaler every 4-6 hours as needed like we discussed. If unsure how to use it, ask pharmacist to demonstrate how. Should help open airways and improve cough, wheezing, and shortness of breath *Tessalon Perles will not cause drowsiness but use at bedtime to help stop cough so that you may get some rest. *Start steroid today. Helps with inflammation therefore, cough and wheezing. Follow directions on the package. Reviewed side effects. Patient reports taking them before. Follow up IMMEDIATELY for new or worsening of symptoms OR no noticeable improvement over the next 48-72 hours. 911 immediately for any life threatening symptoms such as chest pain or difficulty breathing Prescriptions: Benzonatate [Benzonatate 100mg cap] 100 mg PO Q8HP PRN #15 cap PRN Reason: Cough Transmission Status: Received by [facility] Cefdinir [Omnicef 300mg Capsule] 300 mg PO BID #20 cap Transmission Status: Received by [facility] Referrals: Dhiraj Dowling APRN [Primary Care Provider] - As needed Time of Disposition: 13:54 Medical Decision Making - Todd Inquiry Pt receiving controlled substance: No Todd was queried for this patient: No Vital Signs: 04/16/21 13:05 04/16/21 14:06 Temperature 98.5 F 98.5 F Temperature Source Oral Pulse Rate 77 Pulse Rate [Right Brachial] 77 Respiratory Rate 18 18 Blood Pressure 140/80 Blood Pressure [Right Arm] 140/80 Blood Pressure Mean [Right Arm] 100 Blood Pressure Source [Right Arm] Automatic Cuff Blood Pressure Position [Right Arm] Sitting 02 Sat by Pulse Oximetry 99 Oxygen Delivery Method Room Air Orders (Tests/Meds): ED MEDICATIONS Discontinued Medications Generic Name Dose Route Start Last Admin Trade Name Nayeli PRN Reason Stop Dose Admin Methylprednisolone Sodium Succinate 125 mg 04/16/21 13:50 04/16/21 14:04 Methylprednisolone Sod Succ 125mg Vial IM 04/16/21 13:51 125 mg ONCE ONE Administration Medical Decision Narrative: Patient states that she has taken solu medrol and cephalosprins in the past without complications or reactions [facility] [place] HPI - General Stated complaint: soa, cough, runny nose Time Seen by Provider: 04/16/21 13:39 Mode of Arrival: Ambulatory Source of Information: Patient Limitations: No Limitations Description of Symptoms (Recalled from Triage Doc. by RN): PATIENT C/O COUGH, WHEEZING, RUNNY NOSE SINCE YESTERDAY HEENT Symptoms (Recalled from RN notes): Yes Resp Symptoms (Recalled from RN notes): Yes Skin Symptoms (Recalled from RN notes): No MS Symptoms (Recalled from RN notes): No Functional Status (Recalled from RN notes): WNL - History of Present Illness Provider Complaint: Patient states that she feels like she may have bronchitis State that she has has been having sinus pain and pressure, drainage in the back of her throat, cough and chest congestion States that she has a history of Bronchitis States that today she felt like it was geting worse so she came in - Related Data Home Medications Medication Instructions Recorded Confirmed aspirin 81 mg chewable tablet 81 mg PO DAILY 12/15/17 03/12/21 Morphine Sulfate 0.84 mg IT CONT 08/11/18 03/12/21 Fluticasone Propionate 1 spray INTRANASAL DAILY 12/31/19 03/12/21 flutic
[2021-04-16 14:06] VITALS: BP 140/80; PULSE 77; RESP 18; TEMP 36.9; O2SAT 99
== END 2021-04-16 14:11 | disposition home or self-care (01) ==
PROVIDERS: Emergency Provider Nurse Practitioner; PCP Nurse Practitioner Family
DX: R06.02 Shortness of breath (principal); J32.9 Chronic sinusitis, unspecified; K21.9 Gastro-esophageal reflux disease without esophagitis; E78.5 Hyperlipidemia, unspecified; E03.9 Hypothyroidism, unspecified; M19.90 Unspecified osteoarthritis, unspecified site; E66.01 Morbid (severe) obesity due to excess calories; F17.210 Nicotine dependence, cigarettes, uncomplicated; Z79.51 Long term (current) use of inhaled steroids; Z79.82 Long term (current) use of aspirin; Z79.899 Other long term (current) drug therapy; Z88.1 Allergy status to other antibiotic agents; Z88.3 Allergy status to other anti-infective agents; Z88.2 Allergy status to sulfonamides; Z88.8 Allergy status to other drugs, medicaments and biological substances; Z68.42 Body mass index [BMI] 45.0-49.9, adult
CPT/HCPCS: 96372; 99202; 99212; 99213; G0463

== ENCOUNTER 2021-05-07 09:03 | Day surgery (SDC) | payer MEDICAID, SELFPAY ==
[2021-05-07 09:00] VITALS: BP 115/63; PULSE 76; RESP 20; TEMP 36.4; O2SAT 100; BMI 45.9
[2021-05-07 09:07] VITALS: BP 156/40; PULSE 80; RESP 20; O2SAT 98
[2021-05-07 09:15] VITALS: BP 158/42; PULSE 74; RESP 20; O2SAT 99
[2021-05-07 09:35] VITALS: BP 116/61; PULSE 64; RESP 20; O2SAT 99
--- NOTE | 2021-05-07 09:51 | HMH.PMPROC ---
- Procedure Date: 05/07/21 Time: 09:51 Anesthesiologist:: Stone Mercado MD Complications:: None Pre-procedure Diagnosis:: Degenerative disc disease of the lumbar spine with lumbar radiculopathy symptoms Post-procedure Diagnosis:: Same Indications for Procedure:: Patient is a pleasant 51-year-old female who presents today for intrathecal pain pump refill and reprogram. The patient is being treated for degenerative disc disease of lumbar spine with lumbar radiculopathy symptoms. Patient is currently being managed with morphine 10 mg/mL at a rate of 2.5 mg/day. Patient denies any side effects with his medications. Patient denies any change the location and type of pain. Patient rates pain a 7 out of 10. Drug screen is appropriate. Todd [ ] has been reviewed and is appropriate. Physical exam General: Alert and oriented x3, no acute distress, pleasant and cooperative, [on room air] Lungs: Respirations even and unlabored, symmetrical chest expansion Eyes: PERRL Musculoskeletal: Flexion and extension of lumbar [spine] somewhat guarded secondary to pain, [antalgic gait noted] Neurological: Speech clear, no gross sensory deficit Procedure Details:: Informed consent was obtained and the risks and benefits of the procedure was explained to the patient. The patient was taken to the procedure room. The pump was interrogated. The area over the pump was prepped using ChloraPrep. The pump was accessed with a 22-gauge needle. Fluoroscopy was used to access the pump. Approximately 6 mL's of the intrathecal solution was withdrawn and discarded. The pump was then refilled with 20 mL's of intrathecal morphine 10 mg/mL. The pump was interrogated and the infusion was continued to morphine 2.5 mg/day. The patient tolerated the procedure well with no complication. Plan and Disposition:: We will see the patient back in the clinic at the next intrathecal refill. Patient has been instructed to contact the clinic with any concerns before the next appointment. This note was dictated using voice recognition software and may contain errors or omissions.
== END 2021-05-07 09:35 | disposition home or self-care (01) ==
LOC: SC.PAINP 09:04
PROVIDERS: PCP Nurse Practitioner Family; Visit Provider Student in an Organized Health Care Education/Training Program
DX: M51.16 Intervertebral disc disorders with radiculopathy, lumbar region (principal); Z45.1 Encounter for adjustment and management of infusion pump; I10 Essential (primary) hypertension; E11.9 Type 2 diabetes mellitus without complications; E66.9 Obesity, unspecified; Z72.0 Tobacco use
CPT/HCPCS: 95991

== ENCOUNTER 2021-07-02 14:10 | Day surgery (SDC) | payer MEDICAID, SELFPAY ==
[2021-07-02 14:42] VITALS: BP 137/69; BP 147/90; BP 156/88; BP 156/90; PULSE 54; PULSE 57; PULSE 60; PULSE 66; RESP 18; RESP 20; TEMP 36.3; O2SAT 100; O2SAT 93; O2SAT 99; BMI 46.5
--- NOTE | 2021-07-02 14:42 | HMH.PMPROC ---
- Procedure Date: 07/02/21 Time: 14:42 Anesthesiologist:: Evans Bird CRNA Complications:: None Pre-procedure Diagnosis:: Degenerative disc disease lumbar spine. Lumbar radicular symptoms. Post-procedure Diagnosis:: Same Indications for Procedure:: Patient is a very pleasant 51-year-old female that comes our clinic today for intrathecal pain pump refill. Patient currently being managed with morphine 10 mg/mL. Her rate is 2.5 mg/day. She seems to be doing quite well on her current regime. No changes necessary. Patient denies weakness or numbness in the lower extremities. Procedure Details:: Details of the procedure were explained to the patient. Patient was placed in sitting position on the fluoroscopy table. The area over the pain pump was cleansed using chlorhexidine as a cleansing solution. The pump was accessed with ease using a 22-gauge needle. 6 mL was withdrawn and discarded appropriately. The pump was then filled with morphine 10 mg/mL 20 cc. The rate will continue at 2.5 mg/day. Plan and Disposition:: Patient was discharged home without incident.
[2021-07-02 18:46] LABS: Amphetamine/Metha Screen,Urine Negative ng/ml (<1000); Benzodiazepines Screen,Urine Negative ng/ml (<200)
[2021-07-02 18:47] LABS: Barbiturates Screen,Urine Negative ng/ml (<200); Cannabinoid Screen,Urine Negative ng/ml (<50)
[2021-07-02 18:48] LABS: Cocaine Screen,Urine Negative ng/ml (<300)
[2021-07-02 18:49] LABS: Methadone Screen,Urine Negative ng/ml (<300)
[2021-07-02 18:50] LABS: Opiate Screen,Urine Positive ng/ml (<300); Phencyclidine Screen,Urine Negative ng/ml (<25)
[2021-07-17 16:23] LABS: Codeine Negative (Cutoff=100); Hydrocodone Negative (Cutoff=100); Hydromorphone Negative (Cutoff=100); Morphine Positive (.); Opiates Positive (.)
== END 2021-07-02 14:54 | disposition home or self-care (01) ==
LOC: SC.PAINP 14:11
PROVIDERS: PCP Nurse Practitioner Family; Visit Provider Nurse Anesthetist, Certified Registered
DX: M51.16 Intervertebral disc disorders with radiculopathy, lumbar region (principal); Z45.1 Encounter for adjustment and management of infusion pump; J44.9 Chronic obstructive pulmonary disease, unspecified; K21.9 Gastro-esophageal reflux disease without esophagitis; E78.5 Hyperlipidemia, unspecified; I10 Essential (primary) hypertension; M19.90 Unspecified osteoarthritis, unspecified site; E03.9 Hypothyroidism, unspecified
CPT/HCPCS: 80305; 80361; 80365; 95991; G0480

== ENCOUNTER → 2021-08-06 12:17 | Outpatient (CLI) | payer MEDICAID, SELFPAY ==
[2021-08-06 12:48] LABS: Basophils # 0.1 K/mm3 (0-0.2); Basophils % 1.9 % (0.1-2.0); Eosinophils # 0.3 K/mm3 (0.0-0.4); Eosinophils % 3.9 % (0.1-12.0); Hematocrit 41.2 % (37.0-47.0); Hemoglobin 13.9 g/dL (12.2-16.2); Lymphocytes # 2.2 K/mm3 (0.7-4.5); Lymphocytes % 33.6 % (10-50); Mean Corpuscular HGB Conc 33.7 g/dL (31.8-35.4); Mean Corpuscular Hemoglobin 31.2 pg (27.0-31.2); Mean Corpuscular Volume 92.8 fl (81-99); Mean Platelet Volume 7.4 fl (7.4-10.4); Monocytes # 0.3 K/mm3 (0.1-1.0); Monocytes % 4.4 % (1.7-9.3); Neutrophils # 3.7 K/mm3 (1.8-7.8); Neutrophils % 56.3 % (37.0-80.0); Platelet Count 280 K/mm3 (142-424); Red Blood Count 4.44 M/mm3 (4.20-5.40); Red Cell Distribution Width 13.7 % (11.5-17.5); White Blood Count 6.5 K/mm3 (4.8-10.8)
[2021-08-06 13:15] LABS: Alanine Aminotransferase 14 U/L (12-78); Albumin Level 3.8 g/dl (3.5-5.0); Albumin/Globulin Ratio 1.4 (1.1-1.8); Alkaline Phosphatase 122 U/L (38-126); Anion Gap 7.2 mEq/L (5-15); Aspartate Amino Transferase 21 U/L (14-36); Bilirubin,Total 0.5 mg/dl (0.2-1.3); Blood Urea Nitrogen 14 mg/dl (7-17); Calcium 8.9 mg/dl (8.4-10.2); Carbon Dioxide 31 mmol/L (22.0-30.0); Chloride 103 mmol/L (98-107); Chol/HDL Ratio 4.1 (1-3.5); Cholesterol 172 mg/dl (140-200); Estimated Glomerular Filt Rate 88 ml/min (>60); GFR (African American) 107 ML/MIN (>60); Globulin 2.8 g/dL (1.3-3.2); Glucose 97 mg/dl (74-100); HDL Cholesterol 42 mg/dl (40-60); Potassium 4.2 mmoL/L (3.5-5.1); Sodium 137 mmol/L (136-145); Total Protein,Serum 6.6 g/dl (6.3-8.2); Triglycerides 148 mg/dl (30-150); VLDL Cholesterol 30 mg/dL (0-40)
[2021-08-06 13:25] LABS: Hemoglobin A1C 5.3 % (4.0-6.0)
[2021-08-06 13:26] LABS: Direct LDL Cholesterol 93.17 mg/dL (100-129)
[2021-08-06 13:32] LABS: 25-OH Vitamin D, Total 35.5 ng/mL (30-100); T4 (Thyroxine) 7.4 ug/dl (5.53-11.0)
[2021-08-06 13:45] LABS: Thyroid Stimulating Hormone 2.97 uIU/mL (0.465-4.68)
[2021-08-07 09:33] LABS: C-Peptide 2.8 ng/mL (1.1-4.4)
== END ==
PROVIDERS: PCP Nurse Practitioner Family; Visit Provider Nurse Practitioner Family
DX: R73.03 Prediabetes (principal); E66.9 Obesity, unspecified; Z68.42 Body mass index [BMI] 45.0-49.9, adult; Z79.899 Other long term (current) drug therapy
CPT/HCPCS: 36415; 80053; 80061; 82306; 83036; 84436; 84443; 84681; 85025

== ENCOUNTER 2021-08-31 14:45 | Day surgery (SDC) | payer MEDICAID, SELFPAY ==
[2021-08-31 15:16] VITALS: BP 114/53; PULSE 58; RESP 18; TEMP 36.2; O2SAT 99; BMI 47.2
[2021-08-31 15:40] VITALS: BP 140/78; PULSE 78; RESP 18
[2021-08-31 15:42] VITALS: BP 142/77; PULSE 72; RESP 18; O2SAT 98
[2021-08-31 15:54] VITALS: BP 130/65; PULSE 58; RESP 20; O2SAT 99
--- NOTE | 2021-08-31 16:18 | HMH.PMPROC ---
- Procedure Date: 08/31/21 Time: 16:18 Anesthesiologist:: Stone Mercado MD Complications:: None Pre-procedure Diagnosis:: Degenerative disc disease of lumbar spine with lumbar radiculopathy symptoms Post-procedure Diagnosis:: Same Indications for Procedure:: This patient is a pleasant 51-year-old white female who we are treating for low back pain with lumbar radiculopathy symptoms. She currently has an intrathecal morphine pain pump going at 2.5 mg/day. She is doing well with her dose. She has no side effects. Todd and drug screen have all been appropriate. She is functional with her pain well under control. We will refill her pump today and continue her at 2.5 mg/day. Procedure Details:: Informed consent was obtained and the risks and benefits of the procedure was explained to the patient. The patient was taken to the procedure room. The pump was interrogated. The area over the pump was prepped using ChloraPrep. The pump was accessed with a 22-gauge needle. Approximately 5 mL's of the intrathecal solution was withdrawn and discarded. The pump was then refilled with 20 mL's of intrathecal morphine 10 mg/mL. The pump was interrogated and the infusion was continued 2.5 mg/day. The patient tolerated the procedure well with no complication. Plan and Disposition:: We will follow-up with her at her next pump refill. This will be on or before November 06, 2021. She is scheduled to have total knee replacement in the middle of November.
== END 2021-08-31 15:55 | disposition home or self-care (01) ==
LOC: SC.PAINP 14:45
PROVIDERS: PCP Nurse Practitioner Family; Visit Provider Anesthesiology
DX: M51.16 Intervertebral disc disorders with radiculopathy, lumbar region (principal)
CPT/HCPCS: 95991

== ENCOUNTER 2021-10-30 13:18 | Day surgery (SDC) | payer MEDICAID, SELFPAY ==
[2021-10-30 13:25] VITALS: BP 133/64; PULSE 96; RESP 20; TEMP 36.4; O2SAT 96; BMI 49.1
[2021-10-30 13:51] VITALS: BP 164/86; PULSE 62; RESP 18
[2021-10-30 13:53] VITALS: BP 162/87; PULSE 76; RESP 18; O2SAT 93
--- NOTE | 2021-10-30 14:00 | EXP.PAIN.PRO ---
Procedure Date: 10/30/21 Time: 14:00 Anesthesiologist:: Evans Bird CRNA Complications:: None Pre-procedure Diagnosis:: Degenerative disc disease of lumbar spine with lumbar radiculopathy symptoms Post-procedure Diagnosis:: Same Indications for Procedure:: Patient is a pleasant 51-year-old female who presents today for intrathecal pump refill and reprogramming. We are currently treating the patient for degenerative disc disease of lumbar spine with lumbar radiculopathy symptoms. She is currently managed with intrathecal morphine 10 mg/mL with a daily dose of 2.508 mg/day. Patient rates her pain today a 9 out of 10. Patient denies any side effects from this medication. She states this medication does adequately manage her pain. Her Todd is [id number]. Its been reviewed and appropriate. Physical exam General: Alert and oriented x3: No acute distress, pleasant and cooperative on room air Lungs: Respirations even and unlabored, symmetrical chest expansion Eyes: PERRL Musculoskeletal: Flexion and extension of the lumbar spine somewhat guarded secondary to pain, antalgic gait noted Neurological: Speech clear no gross sensory deficit Procedure Details:: Informed consent was obtained and the risk and benefits of the procedure were explained to the patient. The patient was taken to the procedure room where noninvasive monitoring was placed on the patient including a noninvasive blood pressure cuff and pulse oximeter. The patient's pump was interrogated. The area over the pump was cleansed using chlorhexidine as a cleansing solution. In a sterile fashion the pump was accessed using a 22-gauge needle. From the interrogation of the system 5.5 mL of solution was expected. Approximately 5 mL of the pump solution was removed and discarded appropriately. The pump was then refilled with 20 mL ofl morphine 10 mg/mL with a daily dose of 2.508 mg/day. The patient tolerated the procedure well with no complications. Plan and Disposition:: We will see the patient back in clinic at the next intrathecal refill. Patient has been instructed to contact the clinic with any concerns before the next appointment. Dr. Mercado has reviewed this note and agrees with this plan of care. This note has been dictated using voice recognition software and may contain errors or omissions.
[2021-10-30 14:07] VITALS: BP 116/67; PULSE 63; O2SAT 98
== END 2021-10-30 14:05 | disposition home or self-care (01) ==
PROVIDERS: PCP Emergency Medicine; Visit Provider Nurse Anesthetist, Certified Registered
DX: M51.16 Intervertebral disc disorders with radiculopathy, lumbar region (principal)
CPT/HCPCS: 95991

== ENCOUNTER 2021-12-28 12:53 | Day surgery (SDC) | payer MEDICAID, SELFPAY ==
[2021-12-28 13:20] VITALS: BP 122/44; PULSE 58; RESP 18; TEMP 36.6; O2SAT 97; BMI 47.2
[2021-12-28 13:36] VITALS: BP 111/48; PULSE 55; RESP 20; O2SAT 97
--- NOTE | 2021-12-28 15:28 | EXP.PAIN.PRO ---
Procedure Date: 12/28/21 Time: 15:28 Anesthesiologist:: Stone Mercado MD Complications:: None Pre-procedure Diagnosis:: Degenerative disc disease of lumbar spine with lumbar radiculopathy symptoms Post-procedure Diagnosis:: Same Indications for Procedure:: This patient is a pleasant 51-year-old white female who we are treating for low back pain with lumbar radiculopathy symptoms. She currently has an intrathecal morphine pain pump going at 2.5 mg/day. She is doing very well with her pump. We will refill her pump today. Todd and drug screen are all appropriate. She has an antalgic gait. Motor strength of lower extremities is 5/5. There is no gross sensory deficit. Procedure Details:: Informed consent was obtained and the risks and benefits of the procedure was explained to the patient. The patient was taken to the procedure room. The pump was interrogated. The area over the pump was prepped using ChloraPrep. The pump was accessed with a 22-gauge needle. Approximately 5 mL's of the intrathecal solution was withdrawn and discarded. The pump was then refilled with 20 mL's of intrathecal morphine 10 mg/mL. The pump was interrogated and the infusion was continued at 2.5 mg/day. The patient tolerated the procedure well with no complication. Plan and Disposition:: We will follow-up with her at her next pump refill. She has any problems questions to call us back in the pain clinic.
== END 2021-12-28 13:38 | disposition home or self-care (01) ==
LOC: SC.PAINP 12:54
PROVIDERS: PCP Emergency Medicine; Visit Provider Anesthesiology
DX: M51.16 Intervertebral disc disorders with radiculopathy, lumbar region (principal)
CPT/HCPCS: 95991

== ENCOUNTER 2022-03-01 10:53 | Day surgery (SDC) | payer MEDICAID, SELFPAY ==
[2022-03-01 11:06] VITALS: BP 148/90; PULSE 76; RESP 18; TEMP 36.4; O2SAT 100; BMI 48.2
[2022-03-01 11:11] VITALS: BP 164/73; PULSE 70; RESP 18; O2SAT 98
[2022-03-01 11:31] VITALS: BP 151/78; PULSE 69; RESP 20; O2SAT 99
--- NOTE | 2022-03-01 11:55 | EXP.PAIN.PRO ---
Procedure Date: 03/01/22 Time: 11:30 Anesthesiologist:: Evans Bird CRNA Complications:: None Pre-procedure Diagnosis:: Degenerative disc disease lumbar spine multilevels. Lumbar radiculopathy. Lumbar postlaminectomy syndrome. Post-procedure Diagnosis:: Same. Indications for Procedure:: Patient is a very pleasant 51-year-old female comes our clinic today for intrathecal pain pump refill. She is currently managed with morphine sulfate 10 mg/mL at 2.5 mg/day. She is doing very well. She has no complaints regarding the medication. Procedure Details:: Details of the procedure explained the patient. The patient was taken the procedure room placed in the sitting position. The area over the pump was cleansed using chlorhexidine as a cleansing solution. The pump was accessed with ease using a 22-gauge inch and a half needle. 4.2 mL of solution was withdrawn and discarded appropriately. The pump was refilled with 20 cc of morphine sulfate 10 mg/mL. The pump rate will continue at 2.5 mg/day. Plan and Disposition:: Patient was discharged without incident.
== END 2022-03-01 11:34 | disposition home or self-care (01) ==
LOC: SC.PAINP 10:54
PROVIDERS: PCP Emergency Medicine; Visit Provider Nurse Anesthetist, Certified Registered
DX: M51.16 Intervertebral disc disorders with radiculopathy, lumbar region (principal); M96.1 Postlaminectomy syndrome, not elsewhere classified
CPT/HCPCS: 95991

== ENCOUNTER 2022-04-23 13:51 | Day surgery (SDC) | payer MEDICAID, SELFPAY ==
[2022-04-23 14:07] VITALS: BP 161/90; PULSE 69; RESP 18; TEMP 36.4; O2SAT 100; BMI 48.2
[2022-04-23 14:09] VITALS: BP 162/77; PULSE 55; RESP 18; O2SAT 97
[2022-04-23 14:12] VITALS: BP 162/77; PULSE 55; RESP 18; O2SAT 97
--- NOTE | 2022-04-23 14:18 | EXP.PAIN.PRO ---
Procedure Date: 04/23/22 Time: 14:00 Anesthesiologist:: Evans Bird CRNA Complications:: None Pre-procedure Diagnosis:: Degenerative disc disease lumbar spine multilevels. Lumbar radiculopathy. Lumbar postlaminectomy syndrome. Post-procedure Diagnosis:: Same. Indications for Procedure:: Very pleasant 52-year-old female comes our clinic today for intrathecal pain pump interrogation and refill. Patient is currently being managed with morphine sulfate 10 mg/mL at 2.5 mg/day. Patient is doing very well on her current settings. She does not complain of any side effects or complications. Procedure Details:: Details of the procedure were explained to the patient. The patient taken to procedure room placed in the sitting position. The pump was interrogated. The area of the pump was cleansed using chlorhexidine as a cleansing solution. The pump was accessed with ease using a 22-gauge 2 inch needle. 6 mL of solution was withdrawn and discarded appropriately. The pump was then filled with 20 cc of morphine sulfate 10 mg/mL. The rate will continue at 2.5 mg/day. Plan and Disposition:: Patient was discharged without incident.
[2022-04-23 14:21] VITALS: BP 130/68; PULSE 59; RESP 18; O2SAT 100
== END 2022-04-23 14:21 | disposition home or self-care (01) ==
PROVIDERS: PCP Emergency Medicine; Visit Provider Nurse Anesthetist, Certified Registered
DX: Z45.1 Encounter for adjustment and management of infusion pump (principal); M51.16 Intervertebral disc disorders with radiculopathy, lumbar region; M96.1 Postlaminectomy syndrome, not elsewhere classified
CPT/HCPCS: 95991

== ENCOUNTER 2022-06-18 11:49 | Day surgery (SDC) | payer MEDICAID, SELFPAY ==
[2022-06-18 11:53] VITALS: BP 142/74; PULSE 73; RESP 18; TEMP 36.2; O2SAT 97; BMI 48.9
[2022-06-18 12:00] VITALS: BP 153/84; PULSE 63; RESP 18; O2SAT 97
[2022-06-18 12:15] VITALS: BP 139/76; PULSE 59; RESP 18; O2SAT 97
--- NOTE | 2022-06-18 12:35 | EXP.PAIN.PRO ---
Procedure Date: 06/18/22 Time: 12:00 Anesthesiologist:: Evans Bird CRNA Complications:: None Pre-procedure Diagnosis:: Degenerative disc disease. Lumbar radiculopathy. Post-procedure Diagnosis:: Same. Indications for Procedure:: Patient is a very pleasant 52-year-old female that comes to our clinic today for intrathecal pain pump interrogation refill. Patient is currently being managed with morphine sulfate 10 mg/mL at a rate of 2.5 mg/day. Patient does not report any side effects or complications regarding the intrathecal pain pump management. Procedure Details:: Details of the procedure were explained to the patient. The patient taken the procedure room placed in the prone position on fluoroscopy table. The area over the intrathecal pump was cleansed using chlorhexidine as a cleansing solution. The pump was interrogated. The pump was then accessed with ease using a 2 inch 22-gauge needle using fluoroscopy guidance. 6 mL of solution was withdrawn and discarded appropriately. The pump was then filled incrementally with 20 cc of morphine sulfate 10 mg/mL. The pump will continue at 2.5 mg/day. Plan and Disposition:: Patient tolerated procedure without difficulty. There are no complications
== END 2022-06-18 12:15 | disposition home or self-care (01) ==
PROVIDERS: PCP Emergency Medicine; Visit Provider Nurse Anesthetist, Certified Registered
DX: Z45.1 Encounter for adjustment and management of infusion pump (principal); M51.16 Intervertebral disc disorders with radiculopathy, lumbar region
CPT/HCPCS: 95991

== ENCOUNTER 2022-08-13 10:44 | Day surgery (SDC) | payer MEDICAID, SELFPAY ==
[2022-08-13 11:04] VITALS: BP 168/82; PULSE 59; RESP 18; TEMP 36.6; O2SAT 100; BMI 50.6
[2022-08-13 11:10] VITALS: BP 180/90; PULSE 55; RESP 18; O2SAT 97
--- NOTE | 2022-08-13 11:15 | EXP.PAIN.PRO ---
Procedure Date: 08/13/22 Time: 11:00 Anesthesiologist:: Evans Bird CRNA Complications:: None Pre-procedure Diagnosis:: Degenerative disc lumbar spine multilevels. Lumbar radiculopathy. Post-procedure Diagnosis:: Same. Indications for Procedure:: Patient is a very pleasant 52-year-old female comes our clinic today for intrathecal pain pump interrogation refill. Patient currently being managed with intrathecal morphine sulfate 10 mg/mL at a rate of 2.5 mg/day. Patient doing very well with her current management. She does not complain of any side effects or complications regarding the current management. Procedure Details:: Details of the procedure were explained to the patient. The patient was taken the procedure room placed in the sitting position. The area over the pump was cleaned using chlorhexidine as a cleansing solution. The pump was interrogated. The pump was accessed with ease using a 22-gauge inch and a half needle. 4.8 mL of solution was withdrawn and discarded appropriately. The pump was then filled incrementally with 20 cc of morphine sulfate 10 mg/mL. The rate will continue at 2.5 mg/day. Plan and Disposition:: Patient was discharged without incident.
[2022-08-13 11:28] VITALS: BP 150/76; PULSE 51; RESP 18; O2SAT 100
[2022-08-13 12:21] LABS: Basophils % 0.4 % (0.1-2.0); Eosinophils # 0.3 K/mm3 (0.0-0.4); Eosinophils % 4.2 % (0.1-12.0); Hematocrit 42.2 % (37.0-47.0); Hemoglobin 13.4 g/dL (12.2-16.2); Lymphocytes % 29.5 % (10-50); Mean Corpuscular HGB Conc 31.8 g/dL (31.8-35.4); Mean Corpuscular Hemoglobin 29.2 pg (27.0-31.2); Mean Platelet Volume 7.4 fl (7.4-10.4); Monocytes # 0.3 K/mm3 (0.1-1.0); Monocytes % 3.9 % (1.7-9.3); Neutrophils # 4.2 K/mm3 (1.8-7.8); Platelet Count 370 K/mm3 (142-424); Red Blood Count 4.59 M/mm3 (4.20-5.40); White Blood Count 6.8 K/mm3 (4.8-10.8)
[2022-08-13 13:11] LABS: Alanine Aminotransferase 18 U/L (12-78); Albumin Level 4.1 g/dl (3.5-5.0); Albumin/Globulin Ratio 1.2 (1.1-1.8); Alkaline Phosphatase 114 U/L (38-126); Anion Gap 13.5 mEq/L (5-15); Aspartate Amino Transferase 28 U/L (14-36); Bilirubin,Total 0.6 mg/dl (0.2-1.3); Blood Urea Nitrogen 9 mg/dl (7-17); Calcium 8.7 mg/dl (8.4-10.2); Carbon Dioxide 29 mmol/L (22.0-30.0); Chloride 101 mmol/L (98-107); Chol/HDL Ratio 4.5 (1-3.5); Cholesterol 179 mg/dl (140-200); Creatinine Clearance Estimated 83 mL/min (50-200); Estimated Glomerular Filt Rate 105 ml/min (>60); GFR (African American) 127 ML/MIN (>60); Globulin 3.4 g/dL (1.3-3.2); Glucose 84 mg/dl (74-100); HDL Cholesterol 40 mg/dl (40-60); Potassium 4.5 mmoL/L (3.5-5.1); Sodium 139 mmol/L (136-145); Total Protein,Serum 7.5 g/dl (6.3-8.2); Triglycerides 205 mg/dl (30-150); VLDL Cholesterol 41 mg/dL (0-40)
[2022-08-13 13:22] LABS: Direct LDL Cholesterol 97.45 mg/dL (100-129)
[2022-08-13 13:28] LABS: 25-OH Vitamin D, Total 37.2 ng/mL (30-100); Free T4 (Free Thyroxine) 1.08 ng/dl (0.78-2.19)
[2022-08-13 13:41] LABS: Thyroid Stimulating Hormone 2.98 uIU/mL (0.465-4.68)
== END 2022-08-13 11:28 | disposition home or self-care (01) ==
PROVIDERS: PCP Emergency Medicine; Referring Provider Orthopaedic Surgery; Visit Provider Nurse Anesthetist, Certified Registered
DX: M51.16 Intervertebral disc disorders with radiculopathy, lumbar region (principal)
CPT/HCPCS: 36415; 80053; 80061; 82306; 84439; 84443; 85025; 95991

== ENCOUNTER → 2022-08-13 12:25 | Outpatient (CLI) | payer MEDICAID, SELFPAY ==
--- NOTE | 2022-08-13 12:27 | XR_ITS ---
FINAL REPORT CLINICAL HISTORY: rt wrist pain FINDINGS: RIGHT WRIST Three views demonstrate no acute fracture or dislocation. There is mild degenerative change in the right wrist involving the radial aspect.. The soft tissues are unremarkable. IMPRESSION: No acute bony abnormality. Mild degenerative change involving the radial aspect of the wrist. Reviewed, Interpreted and Dictated by Otis Barboza III, MD Transcribed by Estefani Nicholson Authenticated and [facility]
== END ==
PROVIDERS: PCP Emergency Medicine; Visit Provider Orthopaedic Surgery
DX: G56.01 Carpal tunnel syndrome, right upper limb (principal)
CPT/HCPCS: 73110

== ENCOUNTER 2022-08-13 13:38 | Outpatient (RCR) | payer MEDICAID, SELFPAY | END 2022-08-13 15:00 | disposition home or self-care (01) | LOC: OT 13:38 | PROVIDERS: Visit Provider Orthopaedic Surgery | DX: G56.01 Carpal tunnel syndrome, right upper limb (principal) | CPT/HCPCS: 97763 ==

== ENCOUNTER 2022-10-11 09:27 | Day surgery (SDC) | payer MEDICAID, SELFPAY ==
[2022-10-11 09:35] VITALS: BP 169/86; PULSE 64; RESP 18; TEMP 36.7; O2SAT 99; BMI 47.6
[2022-10-11 09:43] VITALS: BP 155/99; PULSE 64; RESP 18; O2SAT 97
[2022-10-11 09:44] VITALS: BP 155/99; PULSE 64; RESP 18; O2SAT 97
[2022-10-11 09:51] VITALS: BP 119/77; PULSE 72; RESP 18; O2SAT 97
--- NOTE | 2022-10-11 10:07 | EXP.PAIN.PRO ---
Procedure Date: 10/11/22 Time: 19:30 Anesthesiologist:: Evans Bird CRNA Complications:: None Pre-procedure Diagnosis:: Degenerative disc disease lumbar spine multilevels. Lumbar radiculopathy. Lumbar postlaminectomy syndrome Post-procedure Diagnosis:: Same. Indications for Procedure:: Patient is a pleasant 52-year-old female comes our clinic today for intrathecal pain pump interrogation refill. Patient currently being managed with morphine sulfate 2 mg/mL at 2.5080 mg/day. Patient reports significant improvement terms of her overall low back symptoms and bilateral hip and leg radicular symptoms with the current intrathecal pain pump management. Patient does not request any changes in current medication rate. Also, patient does not complain of any side effects or complications regarding intrathecal pain pump management at this time. Procedure Details:: Details of the procedure explained to the patient. The patient taken the procedure room placed in the sitting position. The area of the pump was cleansed using chlorhexidine as a cleansing solution. The pump was interrogated. The pump was accessed with ease using a 22-gauge inch and half needle. 5.1 mL solution was withdrawn and discarded appropriately. The pump was then filled with 20 cc of solution containing morphine sulfate 10 mg/mL. The pump rate will continue at 2.5080 mg/day. Patient tolerated procedure without difficulty. There are no complications. Plan and Disposition:: Patient was discharged without incident.
[2022-10-11 11:10] LABS: Barbiturates Screen,Urine Negative ng/ml (<200)
[2022-10-11 11:11] LABS: Amphetamine/Metha Screen,Urine Negative ng/ml (<1000); Benzodiazepines Screen,Urine Negative ng/ml (<200)
[2022-10-11 11:12] LABS: Cannabinoid Screen,Urine Negative ng/ml (<50)
[2022-10-11 11:13] LABS: Cocaine Screen,Urine Negative ng/ml (<300); Methadone Screen,Urine Negative ng/ml (<300)
[2022-10-11 11:14] LABS: Opiate Screen,Urine Positive ng/ml (<300); Phencyclidine Screen,Urine Negative ng/ml (<25)
[2022-10-17 03:37] LABS: Codeine Negative (Cutoff=100); Hydrocodone Negative (Cutoff=100); Hydromorphone Negative (Cutoff=100); Morphine Positive (.); Opiates Positive (.)
== END 2022-10-11 09:51 | disposition home or self-care (01) ==
PROVIDERS: Nurse Practitioner Family; PCP Emergency Medicine; Visit Provider Nurse Anesthetist, Certified Registered
DX: M51.16 Intervertebral disc disorders with radiculopathy, lumbar region (principal); M96.1 Postlaminectomy syndrome, not elsewhere classified
CPT/HCPCS: 80305; 80361; 80365; 95991; G0480

== ENCOUNTER 2022-10-23 09:00 | Outpatient (RCR) | payer MEDICAID, SELFPAY ==
--- NOTE | 2022-08-28 11:42 | HMH.PTOPWND ---
Rehab Outpt Wound Evaluation Rehab OP Wound Evaluation Start: 08/28/22 11:35 Freq: Status: Active Protocol: Document 08/28/22 11:35 LEW (Rec: 08/28/22 11:42 [email or web address] [id number]) E-signed By Jaya Sherman, PT Subjective/History History History This is the initial PT eval for Marcy Roe, 52 yowf who presents with c/o increased L LE edema x ~ 1 yr. She reports she underwent L TKA in Nov and had some increased edmea even before that took place. SHe reports after the surgery, her edema increased considerably. She reports no pain at rest, but pain increases with edema. She also reports some tenderness to palpation and recent bout of cellulitis that was treated with oral abx. She has PMH of DM and HTN. Subjective Subjective Currently pain is 0/10, at worst it is 8/10 in the L LE. 2/4 TTP noted to L lower leg. Mild blanchable erythema noted to L lower leg. 1+ pitting edema in the L foot and ankle with mildly fibrotic edema noted from knee distally. Lymphedema Eval Classification of Lymphedema Secondary Lymphedema Yes Stemmer's sign Stemmer's Sign no Stage of Lymphedema Lymphedema stages Stage II (Pitting edema, increased fibrosis w/ decreased pitting) Skin Changes Dry Skin Yes Skin Folds Yes Redness Yes Discoloration of Skin Yes Other Changes Yes Pain Scale Pain Scale (0-10) 8 Affected Extremities Areas Affected by Lymphedema/Edema Left Lower Extremity Manual Lymphatic Drainage Treatment Area MLD Treatment Area Left Lower Extremity Wound Problems/Impairments Impairments Problems/Impairmments Palpation Tenderness,Impaired Endurance,Impaired Walking, Impaired Recreational Activities,Increased Edema, Lymphedema Present,Subjective C/O Pain,Impaired Self Care/ Self Management Prognosis Rehab Potential Good Clinical Impression Consistent with Diagnosis Yes Short Term Goals Number of Weeks 2 Decreased Palpation Tenderness Yes: 1/4 L LE Increase Ability to Walk Yes: > 30 min without increased edema Decrease Edema Yes: No pitting edema Decrease Subjective C/O Pain Yes: 6/10 at worst Patient to Understand Lymphedema Yes Treatment and Exercises Decrease Girth Measurments by (cm) Yes: L LE total by 5 cm Varnish Blender Goals Number of Weeks 4 Decreased Palpation Tenderness Yes: 0/4 L LE Increase Ability to Walk Yes: ? 1 hr without increased edema Decrease Lymphedema Yes: No fibrotic edema Decrease Subjective C/O Pain Yes: 4/10 at worst Patient to be Ind w/ HEP Yes Patient to be Ind w/ [place] Yes Compression Garments Patient to Adhere Lymphedema Precautions Yes Decrease Girth Measurments by (cm) Yes: L LE total by 20 cm Outpatient Therapy Plan of Care Treatment Plan May Include Therapeutic Exercise Including Home Yes Exercise Program Manual Therapy Techniques Yes Neuromuscular Re-education Yes Therapeutic Activities to Return to Yes Previous Functional/Work Level ADL/Self Care Education Yes Orthotics/Bracing/Splinting Yes Vasopneumatic Compression Pump Yes Massage Yes Manual Lymphatic Drainage Yes Eval/Re-Eval Yes Frequency Times per week 2 Duration Number of Weeks 4 Addendums This patient is a candidate for social No or vocational rehab? Patient/Guardian verbally acknowledges Yes understanding of treatment program and consents to further treatment? Patient/Guardian verbally acknowledges Yes understanding of diagnosis, prognosis and goals for treatment? G -code Required No Eval Complexity PT Charges 95267 - High Complexity PHYSICIAN CERTIFICATION: I certify the specified therapy services for Marcy Roe are required, authorized, and reviewed every 30 days.
--- NOTE | 2022-10-03 15:10 | HMH.RHREAS ---
Rehab Reassessment Rehab OP Re-assessment Start: 08/28/22 11:35 Freq: Status: Active Protocol: Document 10/03/22 15:02 [id number] (Rec: 10/03/22 15:09 LEW [id number]) E-signed By Jaya Sherman PT Rehab Re-assessment Subjective Subjective Pt reports no pain this am, but pain at worst is 6/10 in the L LE. She continues to have some difficulty with walking due to increased edema . Objective Objective Notes TTP: 1/4 L lower leg. Erythema: Pt has mild blanchable erythema from mid- calf distally on L LE. Edema: 2+ pitting edema noted to L lower leg from mid-calf distally. Circumferential Measurements: L LE total is 187.2 cm which ic +1.4 cm since initial eval. Pt has been present for only 3 visits since initial evaluation. Assessment Progress Assessment Slower Than Expected Assessment Notes Pt has shown an increase in overall L LE circumference since initial evaluation and continues to have difficulty with ambulation due to edema. She continues to need skilled intervention to return to prior level of function. Pt was counseled on the importance of adhering to her HEP and being present for her appointments as scheduled. Patient goals met ST,[address],3,5,6 LT,2,3,4,5 ,6,7,8 Revised Goals none Plan Plan Continue per initial POC. Frequency of Therapy 2 x/wk Duration of therapy 4 wks Time and Billing Re-Eval Time 14 Re-Eval Billing Units 1 PHYSICIAN CERTIFICATION: I certify the specified therapy services for Marcy Roe are required, authorized, and reviewed every 30 days.
== END 2022-10-23 10:00 | disposition home or self-care (01) ==
LOC: PT 09:00
PROVIDERS: PCP Emergency Medicine; Visit Provider Emergency Medicine
DX: R60.0 Localized edema (principal); M79.89 Other specified soft tissue disorders
CPT/HCPCS: 97140; 97163; 97164

== ENCOUNTER 2022-12-03 13:36 | Day surgery (SDC) | payer MEDICAID, SELFPAY ==
[2022-12-03 13:45] VITALS: BP 124/77; PULSE 58; RESP 18; TEMP 36.4; O2SAT 100; BMI 47.6
[2022-12-03 13:46] VITALS: BP 161/82; PULSE 58; RESP 18; O2SAT 97
--- NOTE | 2022-12-03 13:53 | EXP.PAIN.PRO ---
Procedure Date: 12/03/22 Time: 13:45 Anesthesiologist:: Evans Bird CRNA Complications:: None Pre-procedure Diagnosis:: Degenerative disc lumbar spine multilevels. Lumbar radiculopathy. Lumbar postlaminectomy syndrome. Post-procedure Diagnosis:: Same. Indications for Procedure:: Patient is a pleasant 52-year-old female that comes our clinic today for intrathecal pain pump refill and interrogation. Patient currently being managed with intrathecal morphine sulfate 2 mg/mL at a rate of 2.508 mg/day. We will exchange the morphine 2 mg/mL for morphine 3 mg/mL. No change in rate. Patient not requesting any changes. Patient does not report any side effects or complications with her current intrathecal pain pump management. Procedure Details:: Details of the procedure explained to the patient. The patient taken the procedure room placed in the sitting position. The area over the pump is cleansed using chlorhexidine as a cleansing solution. The pump was interrogated. The pump was accessed with ease using a 22-gauge 2 inch needle. 6 mL of solution was withdrawn and discarded appropriate. The pump was then filled with 20 cc of solution containing morphine sulfate 3 mg/mL. The rate will continue at 2.508 mg/day. Patient tolerated procedure without difficulty. No complications. Plan and Disposition:: Patient was discharged without incident.
[2022-12-03 14:06] VITALS: BP 139/89; PULSE 63; RESP 18; O2SAT 100
== END 2022-12-03 14:06 | disposition home or self-care (01) ==
PROVIDERS: PCP Emergency Medicine; Visit Provider Nurse Anesthetist, Certified Registered
DX: M51.16 Intervertebral disc disorders with radiculopathy, lumbar region (principal); M96.1 Postlaminectomy syndrome, not elsewhere classified; Z97.8 Presence of other specified devices
CPT/HCPCS: 95991

== ENCOUNTER → 2023-01-09 15:35 | Outpatient (CLI) | payer MEDICAID, SELFPAY ==
[2023-01-09 19:22] LABS: Hemoglobin A1C 5.1 % (4.0-6.0)
== END ==
PROVIDERS: PCP Emergency Medicine; Visit Provider Internal Medicine
DX: E11.69 Type 2 diabetes mellitus with other specified complication (principal); N30.00 Acute cystitis without hematuria; B96.1 Klebsiella pneumoniae [K. pneumoniae] as the cause of diseases classified elsewhere; B96.29 Other Escherichia coli [E. coli] as the cause of diseases classified elsewhere; E66.9 Obesity, unspecified; Z68.42 Body mass index [BMI] 45.0-49.9, adult; Z79.84 Long term (current) use of oral hypoglycemic drugs; Z79.85 Long-term (current) use of injectable non-insulin antidiabetic drugs
CPT/HCPCS: 36415; 83036

== ENCOUNTER → 2023-01-09 23:50 | Outpatient (CLI) | payer MEDICAID, SELFPAY ==
[2023-01-10 02:12] LABS: Microalbumin < 6.000 mg/L (0-16.7)
[2023-01-10 02:44] LABS: Creatinine,Urine Random 65 mg/dL (Not Estab.)
== END ==
PROVIDERS: PCP Emergency Medicine; Visit Provider Internal Medicine
DX: N39.0 Urinary tract infection, site not specified (principal); R73.03 Prediabetes; B96.1 Klebsiella pneumoniae [K. pneumoniae] as the cause of diseases classified elsewhere; B96.29 Other Escherichia coli [E. coli] as the cause of diseases classified elsewhere
CPT/HCPCS: 82043; 82570; 87086

== ENCOUNTER → 2023-02-10 23:27 | Outpatient (CLI) | payer MEDICAID, SELFPAY | PROVIDERS: PCP Family Medicine; Visit Provider Family Medicine | DX: N39.0 Urinary tract infection, site not specified (principal); B96.1 Klebsiella pneumoniae [K. pneumoniae] as the cause of diseases classified elsewhere | CPT/HCPCS: 87086 ==

== ENCOUNTER 2023-03-18 11:05 | Day surgery (SDC) | payer MEDICAID, SELFPAY ==
[2023-03-18 11:16] VITALS: BP 129/89; PULSE 80; RESP 18; TEMP 36.2; O2SAT 97; BMI 46.5
--- NOTE | 2023-03-18 11:23 | EXP.PAIN.PRO ---
Procedure Date: 03/18/23 Time: 11:15 Anesthesiologist:: Evans Bird CRNA Complications:: None Pre-procedure Diagnosis:: Degenerative disc lumbar spine multilevels. Lumbar radiculopathy. Lumbar postlaminectomy syndrome. Post-procedure Diagnosis:: Same. Indications for Procedure:: Patient is a very pleasant 53-year-old female comes our clinic today for intrathecal pain pump interrogation refill. She is currently being managed with intrathecal morphine sulfate 3 mg/mL at a rate of 2.508 mg/day. Patient doing very well with her current management. She is not reporting any side effects or complications. Procedure Details:: Details of the procedure explained to the patient. Patient taken to procedure room placed in sitting position. The area of the pump was cleansed using chlorhexidine as a cleansing solution. The pump was interrogated. The pump was accessed with ease using 22-gauge inch and half needle. 2.2 mL of solution was withdrawn and discarded appropriately. The pump was then filled with 20 cc of solution containing morphine sulfate 3 mg/mL. Rate will continue at 2.508 mg/day. Patient tolerated procedure without difficulty. No complications. Plan and Disposition:: Patient was discharged without incident.
[2023-03-18 11:28] VITALS: BP 123/85; PULSE 73; RESP 18; O2SAT 97
[2023-03-18 11:30] VITALS: BP 153/91; PULSE 71; RESP 18; O2SAT 97
[2023-03-18 11:31] VITALS: BP 153/91; PULSE 71; RESP 18; O2SAT 97
== END 2023-03-18 11:28 | disposition home or self-care (01) ==
PROVIDERS: PCP Nurse Practitioner Family; Visit Provider Nurse Anesthetist, Certified Registered
DX: M51.16 Intervertebral disc disorders with radiculopathy, lumbar region (principal); M96.1 Postlaminectomy syndrome, not elsewhere classified; Z97.8 Presence of other specified devices; Z45.1 Encounter for adjustment and management of infusion pump
CPT/HCPCS: 95991

== ENCOUNTER 2023-06-10 09:21 | Day surgery (SDC) | payer MEDICAID, SELFPAY ==
[2023-06-10 09:39] VITALS: BP 125/81; PULSE 81; RESP 18; TEMP 36.4; O2SAT 100; BMI 44.9
[2023-06-10 09:48] VITALS: BP 170/93; PULSE 75; RESP 18; O2SAT 97
[2023-06-10 09:50] VITALS: BP 170/93; PULSE 75; RESP 18; O2SAT 97
[2023-06-10 09:58] VITALS: BP 134/80; PULSE 72; RESP 18; O2SAT 100
--- NOTE | 2023-06-10 09:58 | EXP.PAIN.PRO ---
Procedure Date: 06/10/23 Time: 09:30 Anesthesiologist:: Evans Bird CRNA Complications:: None Pre-procedure Diagnosis:: Degenerative disc lumbar spine multilevels. Lumbar radiculopathy. Lumbar postlaminectomy syndrome. Post-procedure Diagnosis:: Same. Indications for Procedure:: Patient is a very pleasant 53-year-old female comes our clinic today for intrathecal pain pump interrogation and refill. She is currently being managed with intrathecal morphine sulfate 15 mg/mL at a rate of 2.5080 mg/day. She is doing very well with her current settings. She is not reporting any side effects or complications. She is not requesting any changes today. Procedure Details:: Details of the procedure explained to the patient. The patient taken procedure room placed in the sitting position. The area over the pump is cleansed using chlorhexidine as a cleansing solution. The pump was interrogated. The pump was accessed with ease using a 22-gauge inch and half needle. 6 mL of solution was withdrawn discarded appropriately. The pump was then filled with 20 cc of solution containing morphine sulfate 15 mg/mL. The rate will continue at 2.5080 mg/day. Patient tolerated procedure without difficulty. No complications. Plan and Disposition:: Patient was discharged without incident.
[2023-06-10 11:16] LABS: Barbiturates Screen,Urine Negative ng/ml (<200)
[2023-06-10 11:17] LABS: Amphetamine/Metha Screen,Urine Negative ng/ml (<1000); Benzodiazepines Screen,Urine Negative ng/ml (<200)
[2023-06-10 11:18] LABS: Cannabinoid Screen,Urine Negative ng/ml (<50); Cocaine Screen,Urine Negative ng/ml (<300)
[2023-06-10 11:19] LABS: Methadone Screen,Urine Negative ng/ml (<300)
[2023-06-10 11:20] LABS: Opiate Screen,Urine Positive ng/ml (<300); Phencyclidine Screen,Urine Negative ng/ml (<25)
[2023-06-15 19:14] LABS: Codeine Negative (Cutoff=100); Hydrocodone Negative (Cutoff=100); Hydromorphone Negative (Cutoff=100); Morphine Positive (.); Opiates Positive (.)
== END 2023-06-10 09:58 | disposition home or self-care (01) ==
PROVIDERS: Anesthesiology; PCP Family Medicine; Visit Provider Nurse Anesthetist, Certified Registered
DX: M51.16 Intervertebral disc disorders with radiculopathy, lumbar region (principal); M96.1 Postlaminectomy syndrome, not elsewhere classified; Z97.8 Presence of other specified devices; Z45.1 Encounter for adjustment and management of infusion pump
CPT/HCPCS: 80307; 80361; 80365; 95991; G0480

== ENCOUNTER 2023-07-21 09:59 | Outpatient (CLI) | payer MEDICAID, SELFPAY ==
--- NOTE | 2023-07-21 10:00 | US_ITS ---
PROCEDURE INFORMATION: Exam: US Right Breast, Complete Exam date and time: 07/21/2023 10:36 AM Age: 53 years old Clinical indication: Palpable abnormality in the right breast TECHNIQUE: Imaging protocol: Complete ultrasound of all four quadrants of the right breast and the retroareolar regions, including ultrasound of the axilla when performed. COMPARISON: No relevant prior studies available. FINDINGS: ULTRASOUND: Breast ultrasound findings: Sonographic images of the right breast including the retroareolar region, all 4 quadrants and the axilla do not demonstrate any solid masses. 0.5 cm cyst in the 12 o'clock axis 2 cm from the nipple. Coarse benign calcification measuring 0.2 cm is within the region of palpable concern in the right 10 o'clock axis 5 cm from the nipple. No architectural distortion or acoustical shadowing. No skin thickening or axillary adenopathy. IMPRESSION: A skin marker should be placed over the area of palpable concern followed by a diagnostic unilateral mammogram with spot compression views for full evaluation of the patient's complaint of a palpable abnormality. ASSESSMENT: BI-RADS Category 0: Incomplete- Need Additional Imaging Evaluation and/or Prior Mammograms for Comparison.
== END 2023-07-21 23:59 | disposition home or self-care (01) ==
LOC: RAD 10:00
PROVIDERS: PCP Family Medicine; Visit Provider Family Medicine
DX: N63.41 Unspecified lump in right breast, subareolar (principal)
CPT/HCPCS: 76641

== ENCOUNTER 2023-09-02 08:13 | Day surgery (SDC) | payer MEDICAID, SELFPAY ==
[2023-09-02 08:32] VITALS: BP 125/76; PULSE 95; RESP 16; TEMP 36.4; O2SAT 98; BMI 44.4
[2023-09-02 09:02] VITALS: BP 147/93; PULSE 83; RESP 18; O2SAT 97
[2023-09-02 09:03] VITALS: BP 147/93; PULSE 83; RESP 18; O2SAT 97
--- NOTE | 2023-09-02 09:06 | EXP.PAIN.PRO ---
Procedure Date: 09/02/23 Time: 08:45 Anesthesiologist:: Evans Bird CRNA Complications:: None Pre-procedure Diagnosis:: Degenerative disc lumbar spine multilevels. Lumbar radiculopathy. Lumbar postlaminectomy syndrome. Post-procedure Diagnosis:: Same. Indications for Procedure:: Patient is a very pleasant 53-year-old female comes our clinic today for intrathecal pain pump interrogation and refill. She is currently being managed with morphine sulfate 15 mg/mL at a pump rate of 2.5080 mg/day. She is doing very well with her current settings. She is not requesting any changes. She is not reporting side effects or complications. Procedure Details:: Details of the procedure explained to the patient. The patient taken procedure room placed in the sitting position. The area over the pump was cleansed using chlorhexidine as a cleansing solution. The pump was accessed with ease using a 22-gauge inch and half needle. 5 mL of solution was withdrawn discarded appropriate. The pump was then filled with 20 cc of solution containing morphine sulfate 15 mg/mL. The rate will continue at 2.5080 mg/day. Patient tolerated procedure without difficulty. There are no complications. Plan and Disposition:: Patient was discharged without incident.
[2023-09-02 09:15] VITALS: BP 138/84; PULSE 77; RESP 18; O2SAT 98
== END 2023-09-02 09:16 | disposition home or self-care (01) ==
PROVIDERS: PCP Family Medicine; Visit Provider Nurse Anesthetist, Certified Registered
DX: M51.36 Other intervertebral disc degeneration, lumbar region (principal); M54.16 Radiculopathy, lumbar region; M96.1 Postlaminectomy syndrome, not elsewhere classified
CPT/HCPCS: 95991

== ENCOUNTER 2023-11-25 08:32 | Day surgery (SDC) | payer MEDICAID, SELFPAY ==
[2023-11-25 08:49] VITALS: BP 115/83; PULSE 87; RESP 16; TEMP 36.4; O2SAT 96; BMI 43.0
[2023-11-25 08:54] VITALS: BP 108/53; PULSE 87; RESP 18; O2SAT 96
[2023-11-25 08:56] VITALS: BP 108/53; PULSE 88; RESP 18; O2SAT 95
[2023-11-25 09:05] VITALS: BP 103/76; PULSE 80; RESP 18; O2SAT 95
--- NOTE | 2023-11-25 09:15 | EXP.PAIN.PRO ---
Procedure Date: 11/25/23 Time: 09:00 Anesthesiologist:: Evans Bird CRNA Complications:: None Pre-procedure Diagnosis:: Degenerative disc lumbar spine multilevels. Lumbar radiculopathy. Lumbar postlaminectomy syndrome Post-procedure Diagnosis:: Same. Indications for Procedure:: Patient is a very pleasant 53-year-old female comes our clinic today for intrathecal pain pump interrogation and refill. She is currently being managed with morphine sulfate 15 mg/mL at a rate of 2.5080 mg/day. She is doing very well at her current settings. She is not requesting any changes. She does not reporting side effects or complications. She rates her pain 2/10. Procedure Details:: Details of the procedure explained to the patient. The patient taken procedure and placed in the sitting position. They over the pumps cleansed using chlorhexidine as a cleansing solution. The pump was interrogated. The pump was accessed with ease using a 22-gauge inch and half needle. 5.5 mL of solution was withdrawn discarded appropriate. The pump was then filled with 20 cc of solution containing morphine sulfate 15 mg/mL. Patient tolerated the procedure without difficulty. There are no complications. Pump rate will remain the same at 2.5080 mg/day. Plan and Disposition:: Patient was discharged without incident.
== END 2023-11-25 09:05 | disposition home or self-care (01) ==
PROVIDERS: Anesthesiology; PCP Family Medicine; Visit Provider Nurse Anesthetist, Certified Registered
DX: M51.16 Intervertebral disc disorders with radiculopathy, lumbar region (principal); M96.1 Postlaminectomy syndrome, not elsewhere classified; Z79.891 Long term (current) use of opiate analgesic
CPT/HCPCS: 36415; 95991

== ENCOUNTER 2024-02-20 10:22 | Day surgery (SDC) | payer MEDICAID, SELFPAY ==
--- NOTE | 2024-02-20 10:55 | EXP.PAIN.PRO ---
Procedure Date: 02/20/24 Time: 12:04 Anesthesiologist:: Angela Finn APRN Complications:: None Pre-procedure Diagnosis:: Degenerative disc disease of lumbar spine with lumbar radiculopathy symptoms Post-procedure Diagnosis:: Same Indications for Procedure:: Patient is a pleasant 53-year-old female who presents today for intrathecal refill and reprogram. Today she rates her pain a 7 out of 10. She denies any new trauma or injury. Patient is currently managed with morphine 15 mg/mL with a daily dose of 2.508 mg/day. She denies any side effects from this medication. Her Todd has been reviewed and is appropriate. Physical Exam: General: Alert and oriented x3, no acute distress, pleasant and cooperative Lungs: Respirations even and unlabored, symmetrical chest expansion Eyes: PERRL Musculoskeletal: Flexion and extension of lumbar [spine] somewhat guarded secondary to pain, [antalgic gait noted] Neurological: Speech clear, no gross sensory deficit Procedure Details:: Informed consent was obtained and the risk and benefits of the procedure were explained to the patient. The patient had noninvasive monitoring placed including noninvasive blood pressure cuff and pulse oximeter. Patient's pump was interrogated. The area over the pump was cleansed with chlorhexidine as a cleansing solution. In sterile fashion the pump was accessed with a 22-gauge needle. Approximately 5.5 mls of the pump solution was removed and discarded appropriately. The pump was then refilled with 20 mL's of morphine 15 mg/mL. The needle was withdrawn and a bandage was placed over the puncture site. The infusion rate was reprogrammed and continued at morphine 2.508 mg/day. The patient tolerated well with no complication. Plan and Disposition:: Patient tolerated her intrathecal refill and reprogram with no complications and was discharged neurologically intact. Patient will return to clinic on or before her next intrathecal refill date. We will see the patient back in the clinic at the next intrathecal refill. Patient has been instructed to contact the clinic with any concerns before the next appointment. Dr. Mercado has reviewed this note and agrees with this plan of care. This note was dictated using voice recognition software and make contain errors or omissions. -- It Is medically necessary for this patient to continue to have their intrathecal pump refilled at regular intervals. This patient had an intrathecal pain pump implanted after meeting criteria of chronic intractable pain for greater than 3 months and failing conservative treatments. Patient has committed and been compliant to the treatment plan and all planned follow up care. Since implantation of the intrathecal pain pump, the patient has had decreased pain and been more functional. Oral medications have been reduced including intake of oral opioids. Patient continues to do well with intrathecal therapy with decrease in pain symptoms and increase in functional status. Stopping intrathecal medications can lead to life threatening withdrawal, seizures, cardiac arrest, severe pain, and possible . Pumps that are not refilled at regular intervals can be damages and cause and need for replacement. We continually titrate dose and concentration to optimize pain relief and function. We are limited in concentration for certain drugs to safely deliver medications through the pump and stay within the recommendations from the Polyan[employer] Consensus Committee Guidelines. Depending on dose and concentration these pumps may need to be refilled sooner than 3 months as we titrate. A UDS is needed to verify patient's compliance with our office pain contract. This is ordered based off specific treatments related to chronic pain with the potential to abuse certain medications.
[2024-02-20 11:31] VITALS: BP 112/66; PULSE 77; RESP 16; O2SAT 99; BMI 41.0
[2024-02-20 11:57] VITALS: BP 122/80; PULSE 77; RESP 16; O2SAT 99
[2024-02-20 12:02] VITALS: BP 122/80; PULSE 84; RESP 16; O2SAT 100
[2024-02-20 12:11] VITALS: BP 110/76; PULSE 74; RESP 16; O2SAT 100
== END 2024-02-20 12:11 | disposition home or self-care (01) ==
PROVIDERS: PCP Family Medicine; Visit Provider Nurse Practitioner Family
DX: M51.16 Intervertebral disc disorders with radiculopathy, lumbar region (principal)
CPT/HCPCS: 62370

== ENCOUNTER 2024-04-15 15:10 | Outpatient (CLI) | payer MEDICAID, SELFPAY ==
[2024-04-15 18:53] LABS: Basophils # 0.1 K/mm3 (0-0.2); Basophils % 0.6 % (0.1-2.0); Eosinophils # 0.4 K/mm3 (0.0-0.4); Hematocrit 42.7 % (37.0-47.0); Lymphocytes # 2.1 K/mm3 (0.7-4.5); Lymphocytes % 24.8 % (10-50); Mean Corpuscular HGB Conc 32.8 g/dL (31.8-35.4); Mean Corpuscular Hemoglobin 29.9 pg (27.0-31.2); Mean Platelet Volume 8.5 fl (7.4-10.4); Monocytes # 0.3 K/mm3 (0.1-1.0); Monocytes % 3.6 % (1.7-9.3); Neutrophils # 5.5 K/mm3 (1.8-7.8); Neutrophils % 65.6 % (37.0-80.0); Platelet Count 306 K/mm3 (142-424); Red Blood Count 4.69 M/mm3 (4.20-5.40); Red Cell Distribution Width 12.3 % (11.5-17.5); White Blood Count 8.4 K/mm3 (4.8-10.8)
[2024-04-15 19:35] LABS: Microalbumin/Creatinine Ratio 5.8
[2024-04-15 19:46] LABS: Creatinine,Urine Random 187 mg/dL (Not Estab.); Hemoglobin A1C 4.9 % (4.0-6.0)
[2024-04-15 19:53] LABS: Alanine Aminotransferase 19 U/L (12-78); Albumin Level 4.5 g/dl (3.5-5.0); Albumin/Globulin Ratio 1.7 (1.1-1.8); Alkaline Phosphatase 97 U/L (38-126); Anion Gap 17.7 mEq/L (5-15); Aspartate Amino Transferase 26 U/L (14-36); Bilirubin,Total 0.5 mg/dl (0.2-1.3); Blood Urea Nitrogen 6 mg/dl (7-17); Calcium 9.2 mg/dl (8.4-10.2); Carbon Dioxide 30 mmol/L (22.0-30.0); Chloride 96 mmol/L (98-107); Cholesterol 183 mg/dl (140-200); Estimated Glomerular Filt Rate 75 ml/min (>60); GFR (African American) 90 ML/MIN (>60); Globulin 2.7 g/dL (1.3-3.2); Glucose 103 mg/dl (74-100); HDL Cholesterol 46 mg/dl (40-60); Potassium 4.7 mmoL/L (3.5-5.1); Sodium 139 mmol/L (136-145); Total Protein,Serum 7.2 g/dl (6.3-8.2); Triglycerides 130 mg/dl (30-150); VLDL Cholesterol 26 mg/dL (0-40)
[2024-04-15 20:24] LABS: Thyroid Stimulating Hormone 1.52 uIU/mL (0.465-4.68)
[2024-04-15 20:26] LABS: 25-OH Vitamin D, Total 24.9 ng/mL (30-100)
== END 2024-04-15 23:59 | disposition home or self-care (01) ==
LOC: LAB.DROPOF 04-16 10:36
PROVIDERS: PCP Family Medicine; Visit Provider Family Medicine
DX: E11.69 Type 2 diabetes mellitus with other specified complication (principal); E66.9 Obesity, unspecified; Z68.41 Body mass index [BMI] 40.0-44.9, adult; I10 Essential (primary) hypertension; E88.810 Metabolic syndrome; E03.9 Hypothyroidism, unspecified
CPT/HCPCS: 80053; 80061; 82043; 82306; 82570; 83036; 84443; 85025

== ENCOUNTER 2024-05-14 09:19 | Day surgery (SDC) | payer MEDICAID, SELFPAY ==
[2024-05-14 09:35] VITALS: BP 107/68; PULSE 87; RESP 16; TEMP 36.9; O2SAT 99; BMI 40.6
--- NOTE | 2024-05-14 09:54 | P.PCN_ITS ---
Procedure Date: 05/14/24 Time: 10:15 Anesthesiologist:: Angela Finn APRN Complications:: None Pre-procedure Diagnosis:: Degenerative disc disease of lumbar spine with lumbar radiculopathy symptoms, chronic pain syndrome Post-procedure Diagnosis:: Same Indications for Procedure:: Patient is a pleasant 54-year-old female who presents today for intrathecal refill and reprogram. Today she rates her pain a 3 or 4 out of 10. Patient denies any new trauma or injury. She does state that her current dosage is working well. Patient is currently managed with morphine 15 mg/mL with a daily dose of 2.508 mg/day. She denies any side effects. Patient does state that she is still hesitant about having her pump replaced as this last 1 she did have an infection that followed the surgery and she is just leery about going and doing another surgical procedure at this time. Her Todd has been reviewed and is appropriate. Physical Exam: General: Alert and oriented x3, no acute distress, pleasant and cooperative Lungs: Respirations even and unlabored, symmetrical chest expansion Eyes: PERRL Musculoskeletal: Flexion and extension of lumbar [spine] somewhat guarded secondary to pain, [antalgic gait noted] Neurological: Speech clear, no gross sensory deficit Procedure Details:: Informed consent was obtained and the risk and benefits of the procedure were explained to the patient. The patient had noninvasive monitoring placed includ ing noninvasive blood pressure cuff and pulse oximeter. Patient's pump was interrogated. The area over the pump was cleansed with chlorhexidine as a cleansing solution.. In sterile fashion the pump was accessed with a 22-gauge needle. Approximately 5.9 mls of the pump solution was removed and discarded appropriately. The pump was then refilled with 20 mL's of morphine 15 mg/mL. The needle was withdrawn and a bandage was placed over the puncture site. The infusion rate was reprogrammed and continued at its current dosage. The patient tolerated well with no complication. Plan and Disposition:: Patient tolerated the procedure well with no complications and was discharged neurologically intact. Patient will return to clinic on or before their next intrathecal refill date. We will see the patient back in the clinic at the next intrathecal refill. Patient has been instructed to contact the clinic with any concerns before the next appointment. Dr. Mercado has reviewed this note and agrees with this plan of care. This note was dictated using voice recognition software and make contain errors or omissions. -- It Is medically necessary for this patient to continue to have their intrathecal pump refilled at regular intervals. This patient had an intrathecal pain pump implanted after meeting criteria of chronic intractable pain for greater than 3 months and failing conservative treatments. Patient has committed and been compliant to the treatment plan and all planned follow up care. Since implantation of the intrathecal pain pump, the patient has had decreased pain and been more functional. Oral medications have been reduced including intake of oral opioids. Patient continues to do well with intrathecal therapy with decrea se in pain symptoms and increase in functional status. Stopping intrathecal medications can lead to life threatening withdrawal, seizures, cardiac arrest, severe pain, and possible . Pumps that are not refilled at regular intervals can be damages and cause and need for replacement. We continually titrate dose and concentration to optimize pain relief and function. We are limited in concentration for certain drugs to safely deliver medications through the pump and stay within the recommendations from the Polyanalgesic Consensus Committee Guidelines. Depending on dose and concentration these pumps may need to be refilled sooner than 3 months as we titrate. A UDS is needed to verify patient's compliance with our office pain contract. This is ordered based off specific treatments related to chronic pain with the potential to abuse certain medications.
[2024-05-14 10:10] VITALS: BP 120/75; PULSE 81; PULSE 87; RESP 18; O2SAT 99
[2024-05-14 10:24] VITALS: BP 115/77; PULSE 88; RESP 16; O2SAT 100
== END 2024-05-14 10:24 | disposition home or self-care (01) ==
PROVIDERS: PCP Family Medicine; Visit Provider Nurse Practitioner Family
DX: M51.16 Intervertebral disc disorders with radiculopathy, lumbar region (principal); G89.4 Chronic pain syndrome
CPT/HCPCS: 62370

== ENCOUNTER 2024-08-06 09:37 | Day surgery (SDC) | payer MEDICAID, SELFPAY ==
[2024-08-06 09:56] VITALS: BP 151/95; PULSE 81; RESP 16; O2SAT 96; BMI 38.1
--- NOTE | 2024-08-06 10:09 | P.HP_ITS ---
History of Present Illness *Admission Date: 08/06/24 *Reason for visit:: Intrathecal refill; DDD *History of present illness: Same [facility] Disclaimer: The information contained in this section may have been updated after the patient was seen, as this information can be updated by other users. Medical History Sinusitis Asthma exacerbation Bronchitis Pain of toe of right foot Ingrowing Toenail Tobacco abuse SOB (shortness of breath) Surgical History History of left knee replacement Family History Other No significant family history Social History Smoking Status: Current some day smoker tobacco type: e-cigarettes second hand exposure: No alcohol intake: never substance use type: denies use current occupational status: unemployed Travel in the last 8 weeks?: None household members: family housing: house current occupational exposures/hazards: No caffeine: Yes Have you lived/traveled outside US in past 30 days?: No Contact w/someone who lives/traveled outside US past 30 days?: No Exposure to someone with infectious disease in past 14 days?: No Do you have a fever (greater than 100.4 F or 38 C)?: No Have you tested positive for COVID-19?: No Exposed to someone with COVID-19 in past 14 days?: No Do you have a sore throat?: No Do you have a cough?: No Do you have any weakness?: No Do you have any diarrhea?: No Are you experiencing any unusual bleeding?: No Do you have any muscle aches/pain?: No Do you have any abdominal pain?: No Are you experiencing loss of taste or smell?: No Other Medical History Have you received the Flu Vaccine for this season: No Have you received the Pneumonia Vaccine: No Review of Systems Review of Systems Review of systems:: pertinent systems reviewed and negative unless documented below Review of systems (narrative): Review of Systems: General: No recent weight changes, no fever, no sleep disturbances Respiratory: No cough, no shortness of air, no recurring pulmonary infections Cardiovascular/peripheral vascular: No chest pain, no palpitations, no edema, no shortness of breath Gastrointestinal: No new onset incontinence, normal bowel movements reported Genitourinary: No new onset incontinence Musculoskeletal: Chronic back pain Psychiatric: [Normal mood/affect] Neurological: [Denies weakness in extremities], [denies balance issues] Meds Home Medications and Allergies Home Medications ?Medication ?Instructions ?Recorded ?Confirmed ?Type clotrimazole 1 % topical cream See Rx Instructions .Ro [place] 04/15/24 08/06/24 Rx .COMPLEX #45 grams fluticasone furoate 100 See Rx Instructions .Route 0 04/15/24 08/06/24 Rx mcg-vilanterol 25 mcg/dose .COMPLEX #60 ea inhalation powder (Breo Ellipta) levothyroxine 50 mcg tablet See Rx Instructions .Route 04/15/24 08/06/24 Rx .COMPLEX . #90 tabs lisinopril 40 mg tablet See Rx Instructions .Route 0 04/15/24 08/06/24 Rx .COMPLEX #90 tabs loratadine 10 mg tablet See Rx Instructions .Route 0 04/15/24 08/06/24 Rx .COMPLEX #90 tabs pantoprazole 40 mg tablet,delayed 40 mg PO .COMPLEX GE RD #90 tabs 04/15/24 08/06/24 Rx release tirzepatide 12.5 mg/0.5 mL See Rx Instructions .Route 06/23/24 08/06/24 Rx subcutaneous pen injector .COMPLEX #2 mL (Mounjaro) albuterol sulfate 90 mcg/actuation See Rx Instructions .Route 07/13/24 08/06/24 Rx aerosol inhaler .COMPLEX #8.5 grams albuterol sulfate 1.25 mg/3 mL 1.25 mg (3 mL) inhalati on Q8H PRN 07/16/24 08/06/24 Rx solution for nebulization shortness of breath or wheez ing #90 mL New Prescriptions to Start Prescriptions: Allergies Allergy/AdvReac Type Severity Reaction Status Date / Time vancomycin Allergy Severe Anaphylaxis Verified 04/15/24 14:28 diphenhydramine (From Allergy Unknown I-RASH Verified 04/15/24 14:28 BENADRYL) Sulfa (Sulfonamide Allergy Unknown I-RASH Verified 04/15/24 14:28 Antibiotics) (SULFA (SULFONAMIDE ANTIBIOTICS)) Exam Data for Last 24 hours Vital signs and Labs for Last 24 Hours: Pulse Resp BP Pulse Ox O2 Del Method 81 16 151/95 H 96 Room Air 08/06/24 09:56 08/06/24 09:56 08/06/24 09:56 08/06/24 09:56 08/06/24 09:56 I & O for Last 24 hours: Intake & Output 08/03/24 08/04/24 08/05/24 08/06/24 23:59 23:59 23:59 23:59 Weight 202 lb Constitutional Constitutional: no acute distress *Routine HEENT Exam Head: Present normocephalic and atraumatic Eye: Present PERRL ENT: Present mucous membranes moist *Routine Neck Exam Neck: Present supple *Routine Respiratory Exam Respiratory: Present CTA bilaterally *Routine Cardiovascular Exam Cardiovascular: Present RRR *Routine Abdominal Exam Abdominal: Present soft *Routine Rectal Exam Rectal:: deferred *Routine Genitalia Exam Genitalia:: normal female Routine Back/Spine/Pelvis Exam Back/Spine: Present pain with flexion *Routine Skin Exam Skin: Present intact and dry *Routine Neurological Exam Neurological: Present alert and oriented X3 Routine Psychiatric Exam Psychiatric: Present normal affect and normal thought process Assessment and Plan *Assessment and plan (1) Degenerative disc disease: Status: Chronic Qualifiers: Spinal region: lumbosacral Qualified Code(s): M51.37 - Other intervertebral disc degeneration, lumbosacral region Category: Medical (2) Post laminectomy syndrome: Status: Chronic Category: Medical Code(s): M96.1 - Postlaminectomy syndrome, not elsewhere classified Plan Patient has been instructed to contact the clinic with any concerns before the next appointment. Dr. Mercado has reviewed this note and agrees with this plan of care. This note was dictated using voice recognition software and make contain errors or omissions. All injections are used with Lidocaine, Bupivacaine and dexamethasone. Occasionally urine drug screen is needed to verify patient's compliance with our office pain contract. This is ordered based off specific treatments related to chronic pain with the potential to abuse certain medications.
--- NOTE | 2024-08-06 10:12 | P.PCN_ITS ---
Procedure Date: 08/06/24 Time: 10:12 Anesthesiologist:: Angela Finn APRN Complications:: None Pre-procedure Diagnosis:: Degenerative disc disease of lumbar spine with lumbar postlaminectomy syndrome Post-procedure Diagnosis:: Same Indications for Procedure:: Patient is a pleasant 54-year-old female who presents today for intrathecal refill and reprogram. She rates her pain today as 7 out of 10. She denies any new trauma or injury. She states overall that she is doing well with no c omplications. Patient is currently managed with morphine 15 mg/mL with a daily dose of 2.508 mg/day. She denies any side effects or needing any additional adjustment. Her Todd has been reviewed and is appropriate. Physical Exam: General: Alert and oriented x3, no acute distress, pleasant and cooperative Lungs: Respirations even and unlabored, symmetrical chest expansion Eyes: PERRL Musculoskeletal: Flexion and extension of lumbar [spine] somewhat guarded secondary to pain, [antalgic gait noted] Neurological: Speech clear, no gross sensory deficit Procedure Details:: Informed consent was obtained and the risk and benefits of the procedure were explained to the patient. The patient had noninvasive monitoring placed including noninvasive blood pressure cuff and pulse oximeter. Patient's pump was interrogated. The area over the pump was cleansed with chlorhexidine as a cleansing solution. In sterile fashion the pump was accessed with a 22-gauge needle. Approximately 6 mls of the pump solution was removed and discarded appropriately. The pump was then refilled with 20 mL's of morphine 15 mg/mL. The needle was withdrawn and a bandage was placed over the puncture site. The infusion rate was reprogrammed and continued at its current dosage. The patient tolerated well with no complication. Plan and Disposition:: Patient tolerated the procedure well with no complications and was discharged neurologically intact. Patient will return to clinic on or before their next intrathecal refill date. We will see the patient back in the clinic at the next intrathecal refill. Patient has been instructed to contact the clinic with any concerns before the next appointment. Dr. Mercado has reviewed this note and agrees with this plan of care. This note was dictated using voice recognition software and make contain errors or omissions. -- It Is medically necessary for this patient to continue to have their intrathecal pump refilled at regular intervals. This patient had an intrathecal pain pump implanted after meeting criteria of chronic intractable pain for greater than 3 months and failing conservative treatments. Patient has committed and been compliant to the treatment plan and all planned follow up care. Since implantation of the intrathecal pain pump, the patient has had decreased pain and been more functional. Oral medications have been reduced including intake of oral opioids. Patient continues to do well with intrathecal therapy with decrease in pain symptoms and increase in functional status. Stopping intrathecal medications can lead to life threatening withdrawal, seizures, cardiac arrest, severe pain, and possible . Pumps that are not refilled at regular intervals can be damages and cause and need for replacement. We continually titrate dose and concentration to optimize pain relief and function. We are limited in concentration for certain drugs to safely deliver medications through the pump and stay within the recommendations from the Polyanalgesic Consensus Committee Guidelines. Depending on dose and concentration these pumps may need to be refilled sooner than 3 months as we titrate. A UDS is needed to verify patient's compliance with our office pain contract. This is ordered based off specific treatments related to chronic pain with the potential to abuse certain medications.
[2024-08-06 10:14] VITALS: BP 127/90; PULSE 82; RESP 18; O2SAT 96
[2024-08-06 10:26] VITALS: BP 118/80; PULSE 78; RESP 16; O2SAT 97
== END 2024-08-06 10:26 | disposition home or self-care (01) ==
PROVIDERS: PCP Family Medicine; Visit Provider Nurse Practitioner Family
DX: M51.369 Other intervertebral disc degeneration, lumbar region without mention of lumbar back pain or lower extremity pain (principal); J45.909 Unspecified asthma, uncomplicated; Z79.891 Long term (current) use of opiate analgesic; F17.290 Nicotine dependence, other tobacco product, uncomplicated; Z79.899 Other long term (current) drug therapy; Z96.652 Presence of left artificial knee joint; Z79.85 Long-term (current) use of injectable non-insulin antidiabetic drugs; Z88.1 Allergy status to other antibiotic agents; Z88.2 Allergy status to sulfonamides; Z88.8 Allergy status to other drugs, medicaments and biological substances
CPT/HCPCS: 62370

== ENCOUNTER 2024-08-18 15:30 | Outpatient (CLI) | payer MEDICAID, SELFPAY ==
--- OUTSIDE RECORDS SUMMARY | 2024-07-09 09:15 | XMS_ITS | Encounter Summary ---
Author Organization [facility] [employer] Address [address] [place] [address] Care Team Providers Care General Utility Worker Name Role Phone Erickson Chandra MD Primary Care Provider [phone] Reason for Visit * Reason Comments Knee Pain Injections Right Knee Cortisone Injection Encounter Details Date Type Department Care Team (Late st Contact Info) Description 07/09/2024 9:15 AM EDT Office Visit [facility] - [address] [phone] Ilan Michaels PA-C [address] [place] [phone] Localized osteoarthritis of right knee (Primary Dx) Social History Tobacco Use Types Packs/Day Years Used Date Smoking Tobacco: Never Smokeless Tobacco: Never Alcohol Use Standard Drinks/Week Comments Never 0 (1 standard drink = 0.6 oz pur e alcohol) Interpersonal Safety Answer Date Record ed Family or friends hurt you Not on file 03/14 Family or friends insult you Not on file 02/2024 Family or friends threaten you Not on file 0 03/14/2023 Family or friends scream or curse at you Not on file 03/14/2023 Housing Stability Answer Date Recorded Living situation today Not on file Living situation problems Not on file 2023 Family and Community Support Answer Sergio e Recorded Help with Day to Day Activities Not on file 03/14/2023 Feeling Lonely or Isolated Not on file 03/14 Educational Attainment Answer Date Donte rded Speak language other than Ugandan at home Not on file 03/14/2023 Want help with school or training Not on file 03/14/2023 Depression Answer Date Recorded PHQ-2 Risk Not on file 03/14/2023 Disabilities Answer Date Recorded Difficulty concentrating Not on file 024 Difficulty doing errands alone Not on file 0 03/14/2023 Substance Use Answer Date Recorded Used prescription meds for non-medical reasons N ot on file 03/14/2023 Used illegal drugs past 12 months Not on file 03/14/2023 Comments Unknown Sex and Gender Information Value Date Recorded Sex Assigned at Not on file Legal Sex Female 3:37 PM CDT Gender Identity Not on file Sexual Orientation Not on file documented as of this encounter Last Filed Vital Signs Vital Sign Reading Time Taken Comments Blood Pressure 125/89 07/09/2024 9:34 AM EDT Pulse 96 07/09/2024 9:34 AM EDT Temperature - - Respiratory Rate - - Oxygen Saturation - - Inhaled Oxygen Concentration - - Weight 98.4 kg (217 lb) 07/09/2024 9:34 AM EDT Height 154.9 cm (5' 1 ) 07/09/2024 9:34 AM EDT Body Mass Index 41 07/09/2024 9:34 AM EDT documented in this encounter Progress Notes * Ilan Michaels PA-C - 07/09/2024 9:15 AM EDT NAME: Marcy Roe CSN: [id number] : 1970 PCP: Erickson Chandra MD (Inactive) REASON FOR VISIT Knee Pain and Injections (Right Knee Cortisone Injection) HPI Marcy Roe is a 54 y.o. female who presents today for a follow-up injection in her right Knee Patient's previous injection date: 03/05/24 Previous injection lasted 2 weeks Patient rates their pain today as 7 out of 10 Patient denies any new injuries or issues Patient would like to proceed with an injection today Patient verbalized consent for today's procedure and answered the following questions as listed below: Are you Diabetic: no Allergy to Iodine/Betadine/Shell fish: no Allergy to latex adhesive: no Allergy to steroids: no Allergy to lidocaine: no Recent Covid vaccine within the last two weeks: no Currently taking antibiotics: no Current infections or wounds: no Recent fractures or scheduled surgeries: no CURRENT MEDICATIONS Current Outpatient Medications Medication Instructions albuterol HFA (ProAir HFA) 90 mcg/actuation inhaler oral furosemide (LASIX) 20 MG tablet oral levothyroxine (Synthroid) 100 MCG tablet oral lisinopriL (PRINIVIL,ZESTRIL) 20 MG tablet oral loratadine 10 mg Cap oral meloxicam 15 mg TbDL oral metFORMIN (GLUCOPHAGE) 500 mg, oral, Daily Mounjaro 2.5 mg/0.5 mL PnIj subcutaneous Ozempic 0.25 mg or 0.5 mg (2 mg/3 mL) PnIj subcutaneous pantoprazole (Protonix) 40 MG tablet oral ALLERGIES Allergies Allergen Reactions Benadryl [Diphenhydramine-Zinc Acetate] Sulfa (Sulfonamide Antibiotics) Vancomycin PAST MEDICAL/SURGICAL HISTORY Past Medical History: Diagnosis Date Asthma GERD (gastroesophageal reflux disease) Hypertension Seasonal allergies Thyroid disease Past Surgical History: Procedure Laterality Date HYSTERECTOMY INSERTION/REMOVAL,POST-OP PAIN PUMP REPLACEMENT TOTAL KNEE SPINE SURGERY SOCIAL HISTORY Social History Tobacco Use Smoking status: Never Smokeless tobacco: Never Substance Use Topics Alcohol use: Never Drug use: Never FAMILY HISTORY Family History Problem Relation Name Age of Onset Cancer Other REVIEW OF SYSTEMS General: No recent fever or chills, no recent weight loss or weight gain, no insomnia HEENT: No change in vision, no glasses/contacts, no hearing loss, no tinnitus, no vertigo, no congestion/sinus issues CVS: No chest pain, no palpitations, no edema, no varicose veins Resp: No dyspnea, no wheezing, no cough, no hemoptysis GI: No dysphagia, no nausea, no vomiting, no heart burn, no constipation, no diarrhea : No dysuria, no hematuria, no nocturia, no history of chronic UTI Musculoskeletal: See HPI Derm: No rash, no abrasions, no skin discoloration, no history or MRSA Neuro: No headaches, no seizures, no stroke, no tremors, no muscle weakness, no difficulty walking,no numbness/tingling, no neuropathy Endo: No cold/heat intolerance Heme: No abnormal bruising or bleeding Psych: No depression, no anxiety, no fatigue, no mood swings. Scribe Attestation: I, ANTOINETTE Coles acted as a scribe and transcribed components of the currentencounter under the direction of the Attending Provider. I have not been involved in providing any clinical treatments or patient care. Electronically Signed, ANTOINETTE Coles OBJECTIVE Vitals: 07/09/24 0934 BP: 125/89 Pulse: 96 Weight: 98.4 kg (217 lb) Height: 1.549 m (5' 1 ) Physical Exam Vitals reviewed. Constitutional: Appearance: Normal appearance. HENT: Head: Normocephalic and atraumatic. Skin: General: Skin is warm and dry. Capillary Refill: Capillary refill takes less than 2 seconds. Findings: No bruising or erythema. Neurological: Mental Status: alert and oriented to person, place, and time. Gait: Gait abnormal. Psychiatric: Mood and Affect: Mood normal. Behavior: Behavior normal. Right Knee Exam Appearance: - effusion, - localized swelling, - deformity, -masses. Tenderness to palpation: + Medial joint line, -Lateral joint line, +Patellofemoral joint, -MCL, -LCL, -Posterior, - Quad Tendon, - Patellar Tendon, -Hamstring, - Gastrocnemius. + crepitus ROM: 120 Flexion, Full Extension Strength: 4/5 Testing: -Valgus stress, -Varus stress Neurovascular: NVI, -Homans Skin: normal appearance with no discoloration or wounds ASSESSMENT Problem List Items Addressed This Visit Musculoskeletal and Integument Localized osteoarthritis of right knee - Primary Relevant Medications lidocaine (XYLOCAINE) injection 1% (Completed) methylPREDNISolone acetate (DEPO-MEDROL) injection 80 mg (Completed) Other Relevant Orders Arthrocentsis aspiration/inj major jt/bursa w/o us PLAN Return in about 3 months (around 10/09/2024) for Repeat right knee injection . Ice affected joint Watch for signs of infection, return to clinic if symptoms appear Return to clinic sooner if new symptoms occur as discussed or if symptoms worsen Injection performed today, as noted below PROCEDURE Diabetes education: No Steroid Injection: Right Knee Injection: Indication: right Knee pain Consent: The risks, benefits, and alternatives of procedure were discussed with the patient including but not limited to pain, infection, and bleeding. All questions were answered and informed consent was obtained. Prep: The injection site was identified and confirmed with patient as correct extremity. The site was prepped in a standard sterile manner. The skin overlying the area was anesthetized with ethyl chloride. Procedure: The needle was inserted into above injection site, then was injected with 1cc of 1% lidocaine and 1cc of 80mg Depo-medrol Post-procedure: The patient tolerated the procedure well without complications. Post injection instructions were given and questions were answered to the best of my knowledge. Adverse effects: None. Injection was performed by: Ilan Micahels PA-C Scribe Attestation: Lis Zaldivar CMA acted as a scribe and transcribed components of the current encounter under the direction of the Attending Provider. I have not been involved in providingany clinical treatments or patient care. Electronically Signed, Lis Shepard CMA I, Robert Coleman, PA-C attest that I have examined the above patient. I have dictated the exam, diagnosis, and plan to the scribe listed above to be transcribed into this document. I have supplemented the above documentation as warranted. I attest that I have reviewed the above documentation in its entirety and concur. Electronically Signed, Ilan Michaels PA-C 07/09/2024 10:04 AM EDT [place]: [facility] is undergoing an EHR transition as of this date of service. There may be a delay in uploading older paper and EHR chart data to this new system. The above encounter has been documented to the best of the provider's working knowledge of the EHR in conjunction with medical information provided by the patient (and/or the patient's family member). documented in this encounter Plan of Treatment Upcoming Encounters Date Type Department Care Team (Late st Contact Info) Description 10/15/2024 10:00 AM EDT Office Visit [facility] - [address] [phone] Ilan Michaels PA-C [address] [place] [id number] Scheduled Orders Name Type Priority Associated Diagnoses Orde r Schedule Arthrocentsis aspiration/inj major jt/bursa w/o us Procedures Routine Localized osteoarthritis of right knee Ordered: 07/09/2024 documented as of this encounter Visit Diagnoses Diagnosis Localized osteoarthritis of right knee- Primary documented in this encounter Administered Medications Inactive Administered Medications - up to 3 most recent administrations Medication Order MAR Action Action Date Dose Rate Site lidocaine (XYLOCAINE) injection 1% 1 mL Once, intra-articular, On Fri07/09/24 at 1000, For 1 doseIndications:Localized osteoarthritis of right knee Given 07/09/2024 9:37 AM EDT 1 mL Right Knee methylPREDNISolone acetate (DEPO-MEDROL) injection 80 mg 80 mg Once, intra-articular, On Fri07/09/24 at 1000, For 1 doseIndications:Localized osteoarthritis of right knee Given 07/09/2024 9:38 AM EDT 80 mg Right Knee documented in this encounter Care Teams General Utility Worker Relationship Specialty Start Date End Date Erickson Chandra MD [address] [place] [phone] PCP - General Family Medicine 01/04/22 documented as of this encounter
--- OUTSIDE RECORDS SUMMARY | 2024-08-19 09:39 | XMS_ITS | Referral Summary ---
Author Organization [facility] [employer] Address [address] [place] [address] Care Team Providers Care Signals Analyst Name Role Phone Erickson Chandra MD Primary Care Provider [phone] Encounters Date Type Department Care Team Description 07/09/2024 9:15 AM EDT Office Visit [facility] Orthopedics - [address] [phone] Ilan Michaels PA-C Localized osteoarthritis of right knee (Primary Dx) from Last 3 Months Allergies Active Allergy Reactions Criticality Noted Date Comments Diphenhydramine-Zinc Acetate 022 Sulfa (Sulfonamide Antibiotics) 03/2021 Vancomycin 01/01/2022 Medications furosemide (LASIX) 20 MG tablet Take by mouth. Active levothyroxine (Synthroid) 100 MCG tablet Take by mouth. Active lisinopriL (PRINIVIL,ZESTRI L) 20 MG tablet Take by mouth. Active loratadine 10 mg Cap Take by mouth. Active meloxicam 15 mg TbDL Take by mouth. Active pantoprazole (Protonix) 40 MG tablet Take by mouth. Active albuterol HFA (ProAir HFA) 90 mcg/actuation inhaler Take by mouth. Active metFORMIN (GLUCOPHAGE) 500 MG tablet Take 1 tablet (500 mg total) by mouth daily. 12/31/2022 Active Ozempic 0.25 mg or 0.5 mg (2 mg/3 mL) PnIj Inject subcutaneou sly. 01/01/2023 Active Mounjaro 2.5 mg/0.5 mL PnIj Inject subcutaneou sly. 04/04/2023 Active Hospital, Clinic, or Other Facility Administered Medication Ordered Dose Route Frequency Start Date End Date Status methylPREDNISolone acetate (DEPO-MEDROL) injection 40 mgIndications:Osteoarthritis of right knee, unspecified osteoarthritis type 40 mg IAtc Once 04/02/2022 Activ e lidocaine (XYLOCAINE) injection 1%Indications:Osteoarthritis of right knee, unspecified osteoarthritis type 1 mL IAtc Once 04/02/2022 Activ e Active Problems Problem Noted Date Diagnosed Date Localized osteoarthritis of right knee 3 S/P total knee arthroplasty, left 04/02/2022 Overview (04/02/2022): 11/13/2021 Social History Tobacco Use Types Packs/Day Years [...] Date Donte rded Speak language other than Somali at home Not on file 03/14/2023 Want [...] on file Sexual Orientation Not on file Last Filed Vital Signs Vital Sign Reading Time Taken Comments Blood Pressure 125/89 07/09/2024 9:34 AM EDT Pulse 96 07/09/2024 9:34 AM EDT Temperature - - Respiratory Rate 18 08/29/2023 11:16 AM EDT Oxygen Saturation 95% 03/05/2024 10:23 AM EST Inhaled Oxygen Concentration - - Weight 98.4 kg (217 lb) 07/09/2024 9:34 AM EDT Height 154.9 cm (5' 1 ) 07/09/2024 9:34 AM EDT Body Mass Index 41 07/09/2024 9:34 AM EDT Plan of Treatment Upcoming Encounters Date Type Department Care Team (Late st Contact Info) Description 10/15/2024 10:00 AM EDT Office Visit [facility] Orthopedics - [address] [phone] Ilan Michaels PA-C [address] [place] [id number] [place] [id number] [facility] Care Teams Signals Analyst Relationship Specialty Start Date End Date Erickson Chandra MD [address] [place] [address] PCP - General Family Medicine 01/04/22
--- OUTSIDE RECORDS SUMMARY | 2024-08-19 09:39 | XMS_ITS | Clinical Summary ---
Author Organization [facility] Address [address] [place] [address] Care Team Providers Care Garnett Fixer Name Role Phone Erickson Chandra MD Primary Care Provider [phone] Allergies Active Allergy Reactions Criticality Noted Date Comments Diphenhydramine Other - please document in the comment field,Unknown - Patient states they do not know rxn details Low 02/03/2009 Diphenhydramine Hcl (Sleep) Hives Medium 10/22/2015 Sulfa Drugs Rash,Hives,Other - please document in the comment field,Unknown - Patient states they do not know rxn details Medium 02/03/2009 Vancomycin Anaphylaxis,Unknown - Patient states they do not know rxn details High 10/15/2018 Rash, redness, shortness of breath Rash, redness, shortness of breath Medications albuterol 108 (90 Base) MCG/ACT inhaler INHALE 1 PUFF EVERY 4 HOURS NEEDED. 07/01/2018 Active amoxicillin (Amoxil) 500 MG capsule TAKE 2 CAPSULES BY MOUTH TWICE DAILY FOR 14 DAYS 03/07/2021 Active clotrimazole (Lotrimin) 1 % cream APPLY TO AFFECTED AREA THREE TIMES DAILY 03/27/2021 Active ergocalciferol 1.25 MG (01606 UT) capsule Take 1 capsule by mouth 1 (one) time per week. 03/07/2021 Active furosemide (Lasix) 20 MG tablet Take 20 mg by mouth 1 (one) time each day. 03/07/2021 Active levothyroxine (Synthroid, Levoxyl) 50 MCG tablet Take 50 mcg by mouth 1 (one) time each day. 12/04/2020 Active lisinopril 40 MG tablet TAKE 1 TABLET BY MOUTH EVERY DAY FOR BLOOD PRESSURE 03/27/2021 Active loratadine (Claritin) 10 MG tablet Take 10 mg by mouth 1 (one) time each day. 03/07/2021 Active pantoprazole (Protonix) 40 MG EC tablet 07/01/2018 Active meloxicam (Mobic) 15 MG tablet Take 15 mg by mouth 1 (one) time each day. 02/05/2021 Active cefdinir (Omnicef) 300 MG capsule Take 300 mg by mouth 2 (two) times a day. 04/16/2021 Active benzonatate (Tessalon) 100 MG capsule TAKE 1 CAPSULE BY MOUTH EVERY 8 HOURS NEEDED FOR COUGH 04/16/2021 Active fluticasone (Flonase) 50 MCG/ACT nasal spray USE 1 SPRAY IN EACH NOSTRIL EVERY DAY DIRECTED 04/03/2021 Active Active Problems Problem Noted Date Diagnosed Date Morbid obesity with body mass index (BMI) of 40. 0 or higher 04/04/2021 Immunizations Immunization Administration Dates Next Due Pneumococcal Polysaccharide PPV23 07/01/2018 Family History Medical History Relation Name Comments Asthma Other 1 Diabetes Other 2 Diabetes Other 3 Hypertension Other 4 Breast cancer Other 5 Colon cancer Other 6 Heart attack Other 7 Relation Name Status Comments Other 1 Other 2 Other 3 Other 4 Other 5 Other 6 Other 7 Social History Tobacco Use Types Packs/Day Years Used Date Smoking Tobacco: Every Day Smokeless Tobacco: Never Alcohol Use Standard Drinks/Week Comments No 0 (1 standard drink = 0.6 oz pur e alcohol) Comments Unknown Sex and Gender Information Value Date Recorded Sex Assigned at Not on file Legal Sex Female 7:56 PM EDT Gender Identity Not on file Sexual Orientation Not on file Last Filed Vital Signs Vital Sign Reading Time Taken Comments Blood Pressure 142/82 04/18/2021 10:27 AM EST Pulse 72 04/18/2021 10:27 AM EST Temperature 36.6 C (97.8 F) 11/25/2018 1:20 PM EDT Respiratory Rate - - Oxygen Saturation 98% 04/18/2021 10:27 AM EST Inhaled Oxygen Concentration - - Weight 110 kg (242 lb) 04/18/2021 10:27 AM EST Height 154.9 cm (5' 1 ) 04/18/2021 10:27 AM EST Body Mass Index 45.73 04/18/2021 10:27 AM EST Plan of Treatment Health Maintenance Due Date Last Done Comments Dental Oral Exam 1970 Dental Prophylaxis 1970 Dental X-Ray: Bitewings 1970 Dental X-Ray: Full Mouth 1970 [facility]-Depression Screening 1970 [facility]-/Child/Adol SDOH Screenings 1970 [facility]- SDOH Screenings 1988 [facility]-Adult SDOH Screenings 1988 [facility]-DTaP,Tdap,and Td Vaccine s (1 - Tdap) 1989 [facility]-Hepatitis B Vaccines (1 of 3 - 19+ 3-dose series) 1989 [facility]-Pap Smear 1991 [facility]-Cervical Cancer Screening 2000 [facility]-HPV/Cotest 2000 CT Colonography 2015 Colonoscopy 2015 FIT-DNA 2015 FIT 2015 FOBT 2015 Sigmoidoscopy 2015 [facility]-Colorectal Cancer Screening 2015 [facility]-Pneumococcal Vaccine: 50 + Years (2 of 2 - PCV) 2020 07/01/2018 [facility]-Zoster Vaccines (1 of 2) 2020 [id number] Vaccine (2 - 20 24-25 season) 2023 02/20/2021 [facility]-Influenza Vaccine (Seaso n Ended) 2024 HPV Vaccines Aged Out No longer eligi ble based on patient's age to complete this topic [facility]-HIB Vaccines Aged Out No longer e ligible based on patient's age to complete this topic [facility]-Hepatitis A Vaccines Aged Out No longer eligible based on patient's age to complete this topic [facility]-IPV Vaccines Aged Out No longer e ligible based on patient's age to complete this topic [facility]-Rotavirus Vaccines Aged Out No lo nger eligible based on patient's age to complete this topic Insurance [employer] MEDICAID Care Teams Garnett Fixer Relationship Specialty Start Date End Date Erickson Chandra MD [address] [place] [address] PCP - General 07/14/20
--- OUTSIDE RECORDS SUMMARY | 2024-08-19 09:39 | XMS_ITS | Clinical Summary ---
Author Organization [employer] Address [address] [place] [address] Care Team Providers Care Exposure Machine Operator Name Role Phone Erickson Chandra MD Primary Care Provider [phone] Allergies Active Allergy Reactions Criticality Noted Date [...] knee arthroplasty, left 04/02/2022 Overview (04/02/2022): 11/13/2021 Encounters Date Type Department Care Team Description 07/09/2024 9:15 AM EDT Office Visit [facility] Orthopedics - [address] [phone] Ilan Michaels PA-C Localized osteoarthritis of right knee (Primary Dx) from Last 3 Months Family History Medical History Relation Name Comments Cancer Other Relation Name Status Comments Other Social History Tobacco Use Types Packs/Day Years [...] Date Donte rded Speak language other than Spanish at home Not on file 03/14/2023 Want [...] Description 10/15/2024 10:00 AM EDT Office Visit [facility] Orthoped[facility] - [address] [phone] Ilan Michaels PA-C [address] [place] [phone] Health Maintenance Due Date Last Done Comments CT Colonography 1970 Colonoscopy 1970 Colorectal Cancer Screening 1970 FOBT/FIT 1970 Fit-DNA (Cologuard) 1970 Sigmoidoscopy 1970 Depression Screening (12+) 1982 HIV Screening 1985 Hepatitis C Screening 1988 DTAP/TDAP/TD VACCINES (1 - Tdap) 1989 Pap Smear 1991 Breast Cancer Screening 2010 Pneumococcal 50+ years (2 of 2 - PCV) 03/18/202003/2018 Shingles Vaccine (Zoster) (1 of 2) 2020 Lipid Panel 10/15/2021 10/15/2018 COVID-19 VACCINE (2 - season) 2023 Influenza Vaccine (Season Ended) 2024 Tobacco Cessation Counseling and Screening (12+) 07/1107/11/[address] [place] [phone] [employer] MEDICAID Care Teams Exposure Machine Operator Relationship Specialty Start Date End Date Erickson Chandra MD [address] [place] [id number] PCP - General Family Medicine 01/04/22
== END 2024-08-18 23:59 | disposition home or self-care (01) ==
LOC: LAB.DROPOF 08-19 09:35
PROVIDERS: PCP Family Medicine; Visit Provider Family Medicine
DX: N39.0 Urinary tract infection, site not specified (principal)
CPT/HCPCS: 87086; 87088

== ENCOUNTER 2024-10-22 08:49 | Day surgery (SDC) | payer MEDICAID, SELFPAY ==
--- NOTE | 2024-10-22 08:59 | P.HP_ITS ---
History of Present Illness *Admission Date: 10/22/24 *Reason for visit:: Intrathecal refill; DDD *History of present illness: Same [facility] Disclaimer: The information contained in this section may have been updated after the patient was seen, as this information can be updated by other users. Medical History Sinusitis Asthma exacerbation Bronchitis Pain of toe of right foot Ingrowing Toenail Tobacco abuse SOB (shortness of breath) Surgical History History of left knee replacement Family History Other No significant family history Social History Smoking Status: Current some day smoker tobacco type: e-cigarettes second hand exposure: No alcohol intake: never substance use type: denies use current occupational status: unemployed Travel in the last 8 weeks?: None household members: family housing: house current occupational exposures/hazards: No caffeine: Yes Have you lived/traveled outside US in past 30 days?: No Contact w/someone who lives/traveled outside US past 30 days?: No Exposure to someone with infectious disease in past 14 days?: No Do you have a fever (greater than 100.4 F or 38 C)?: No Have you tested positive for COVID-19?: No Exposed to someone with COVID-19 in past 14 days?: No Do you have a sore throat?: No Do you have a cough?: No Do you have any weakness?: No Do you have any diarrhea?: No Are you experiencing any unusual bleeding?: No Do you have any muscle aches/pain?: No Do you have any abdominal pain?: No Are you experiencing loss of taste or smell?: No Other Medical History Have you received the Flu Vaccine for this season: No Have you received the Pneumonia Vaccine: Yes Meds Home Medications and Allergies Home Medications ?Medication ?Instructions ?Recorded ?Confirmed ?Type clotrimazole 1 % topical cream See Rx Instructions .Ro deering 04/15/24 10/11/24 Rx .COMPLEX #45 grams fluticasone furoate 100 See Rx Instructions .Route 0 04/15/24 10/11/24 Rx mcg-vilanterol 25 mcg/dose .COMPLEX #60 ea inhalation powder (Breo Ellipta) levothyroxine 50 mcg tablet See Rx Instructions .Route 04/15/24 10/11/24 Rx .COMPLEX . #90 tabs lisinopril 40 mg tablet See Rx Instructions .Route 0 04/15/24 10/11/24 Rx .COMPLEX #90 tabs loratadine 10 mg tablet See Rx Instructions .Route 0 04/15/24 10/11/24 Rx .COMPLEX #90 tabs pantoprazole 40 mg tablet,delayed 40 mg PO .COMPLEX GE RD #90 tabs 04/15/2401/25 Rx release albuterol sulfate 90 mcg/actuation See Rx Instructions .Route 07/13/24 10/11/24 Rx aerosol inhaler .COMPLEX #8.5 grams albuterol sulfate 1.25 mg/3 mL 1.25 mg (3 mL) inhalati on Q8H PRN 07/16/24 10/11/24 Rx solution for nebulization shortness of breath or wheez ing #90 mL tirzepatide 15 mg/0.5 mL 15 mg (0.5 mL) SQ WEEKLY #2 mL 08/18/24 10/11/24 Rx subcutaneous pen injector (Ktunlauraro) New Prescriptions to Start Prescriptions: Allergies Allergy/AdvReac Type Severity Reaction Status Date / Time vancomycin Allergy Severe Anaphylaxis Verified 10/11/24 14:46 diphenhydramine (From Allergy Unknown I-RASH Verified 10/11/24 14:46 BENADRYL) Sulfa (Sulfonamide Allergy Unknown I-RASH Verified 10/11/24 14:46 Antibiotics) (SULFA (SULFONAMIDE ANTIBIOTICS)) Exam Constitutional Constitutional: no acute distress *Routine HEENT Exam Head: Present normocephalic and atraumatic Eye: Present PERRL ENT: Present mucous membranes moist *Routine Neck Exam Neck: Present supple *Routine Respiratory Exam Respiratory: Present CTA bilaterally *Routine Cardiovascular Exam Cardiovascular: Present RRR *Routine Abdominal Exam Abdominal: Present soft *Routine Rectal Exam Rectal:: deferred *Routine Genitalia Exam Genitalia:: deferred Routine Back/Spine/Pelvis Exam Back/Spine: Present pain with flexion *Routine Skin Exam Skin: Present intact and warm *Routine Neurological Exam Neurological: Present alert and oriented X3
--- NOTE | 2024-10-22 09:00 | EXP.PAIN.PRO ---
Procedure Date: 10/22/24 Time: 09:26 Anesthesiologist:: Angela Finn APRN Complications:: None Pre-procedure Diagnosis:: Degenerative disc disease of lumbar spine, post laminectomy syndrome, chronic pain syndrome Post-procedure Diagnosis:: Same Indications for Procedure:: Patient is a pleasant 54-year-old female who presents today for intrathecal refill and reprogram. Today she rates her pain as 7 out of 10. She does state that she has had a lot more low back pain and is requesting adjustment if possible. Patient is currently managed with morphine 15 mg/mL with a daily dose of 2.508 mg/day. She denies any side effects. Her Todd has been reviewed and is appropriate. Physical Exam: General: Alert and oriented x3, no acute distress, pleasant and cooperative Lungs: Respirations even and unlabored, symmetrical chest expansion Eyes: PERRL Musculoskeletal: Flexion and extension of lumbar [spine] somewhat guarded secondary to pain, [antalgic gait noted] Neurological: Speech clear, no gross sensory deficit Procedure Details:: Informed consent was obtained and the risk and benefits of the procedure were explained to the patient. The patient had noninvasive monitoring placed including noninvasive blood pressure cuff and pulse oximeter. Patient's pump was interrogated. The area over the pump was cleansed with chlorhexidine as a cleansing solution. In sterile fashion the pump was accessed with a 22-gauge needle. Approximately 7 mls of the pump solution was removed and discarded appropriately. The pump was then refilled with 20 mL's of morphine 15 mg/mL. The needle was withdrawn and a bandage was placed over the puncture site. The infusion rate was reprogrammed and increased 10% to 2.75 mg/day. The patient tolerated well with no complication. Plan and Disposition:: Patient tolerated the procedure well with no complications and was discharged neurologically intact. Patient will return to clinic on or before their next intrathecal refill date. We will see the patient back in the clinic at the next intrathecal refill. Patient has been instructed to contact the clinic with any concerns before the next appointment. Dr. Mercado has reviewed this note and agrees with this plan of care. This note was dictated using voice recognition software and make contain errors or omissions. -- It Is medically necessary for this patient to continue to have their intrathecal pump refilled at regular intervals. This patient had an intrathecal pain pump implanted after meeting criteria of chronic intractable pain for greater than 3 months and failing conservative treatments. Patient has committed and been compliant to the treatment plan and all planned follow up care. Since implantation of the intrathecal pain pump, the patient has had decreased pain and been more functional. Oral medications have been reduced including intake of oral opioids. Patient continues to do well with intrathecal therapy with decrease in pain symptoms and increase in functional status. Stopping intrathecal medications can lead to life threatening withdrawal, seizures, cardiac arrest, severe pain, and possible . Pumps that are not refilled at regular intervals can be damages and cause and need for replacement. We continually titrate dose and concentration to optimize pain relief and function. We are limited in concentration for certain drugs to safely deliver medications through the pump and stay within the recommendations from the [employer] Consensus [employer] Guidelines. Depending on dose and concentration these pumps may need to be refilled sooner than 3 months as we titrate. A UDS is needed to verify patient's compliance with our office pain contract. This is ordered based off specific treatments related to chronic pain with the potential to abuse certain medications.
[2024-10-22 09:06] VITALS: BP 125/87; PULSE 85; RESP 18; O2SAT 97; BMI 38.5
[2024-10-22 09:27] VITALS: BP 129/80; PULSE 60; RESP 18; O2SAT 96
[2024-10-22 09:30] VITALS: BP 125/87; PULSE 85; RESP 18; O2SAT 97
[2024-11-01 01:08] LABS: Amphetamines IA Negative ng/mL (Cutoff:50); Barbituates IA Negative ug/mL (Cutoff:0.1); Benzodiazepines IA Negative ng/mL (Cutoff:20); Cocaine & Metabolites IA Negative ng/mL (Cutoff:25); Fentanyl, IA Negative ng/mL (Cutoff:1.0); Meperidine, IA Negative ng/mL (Cutoff:100); Methadone IA Negative ng/mL (Cutoff:25); Opiates IA ++POSITIVE++ ng/mL (Cutoff:5); Oxycodone IA Negative ng/mL (Cutoff:5); Phencyclidine IA Negative ng/mL (Cutoff:8); Propoxyphene IA Negative ng/mL (Cutoff:50); THC (marijauna) metabolite IA Negative ng/mL (Cutoff:5); Tramadol, IA Negative ng/mL (Cutoff:50)
== END 2024-10-22 09:27 | disposition home or self-care (01) ==
PROVIDERS: PCP Family Medicine; Visit Provider Nurse Practitioner Family
DX: Z45.1 Encounter for adjustment and management of infusion pump (principal); M51.369 Other intervertebral disc degeneration, lumbar region without mention of lumbar back pain or lower extremity pain; M96.1 Postlaminectomy syndrome, not elsewhere classified; G89.4 Chronic pain syndrome; J45.909 Unspecified asthma, uncomplicated; F17.290 Nicotine dependence, other tobacco product, uncomplicated; Z88.1 Allergy status to other antibiotic agents; Z88.2 Allergy status to sulfonamides; Z88.8 Allergy status to other drugs, medicaments and biological substances; Z79.890 Hormone replacement therapy; Z79.51 Long term (current) use of inhaled steroids; Z79.899 Other long term (current) drug therapy
CPT/HCPCS: 62370; 80307